=== PATIENT | female | born 1960 | race Caucasian/White ===

== ENCOUNTER 2017-08-24 12:04 | Day surgery (SDC) | payer OTHER ==
[2017-08-17 11:16] LABS: Absolute Lymphocytes (CBC) 3.6 K/uL (0.7-4.9); Absolute Monocytes 0.7 K/uL (0.1-1.3); Absolute Neutrophil 5.1 K/uL (1.8-8.0); Basophils % 0.5 % (0-1.3); Eosinophils % 1.7 % (0-4.4); Hematocrit 43.4 % (36.0-45.0); Lymphocytes % 37.3 % (15.3-44.8); MCH 30.1 pg (27.0-35.0); MCV 88.7 fL (80-100); MPV 10.9 fL (7.6-11.3); Monocytes % 7.6 % (3.3-12.3)
[2017-08-17 11:22] LABS: Urine Appearance CLEAR; Urine Bilirubin NEGATIVE (NEG); Urine Blood NEGATIVE (NEG); Urine Color YELLOW; Urine Glucose NEGATIVE (NEG); Urine Protein NEGATIVE (NEG); Urine Urobilinogen 0.2 mg/dL (0.2-1.0)
[2017-08-17 11:31] LABS: Urine Microscopic Reflex ORDER UMIC
--- NOTE | 2017-08-17 11:51 | RAD REPORT ---
EXAM DESCRIPTION: RAD - Chest Pa And Lat (2 Views) - 08/17/2017 10:57 am CLINICAL HISTORY: Preop chest, pending carpal tunnel surgery COMPARISON: February 2008 TECHNIQUE: PA and lateral views of the chest were obtained. FINDINGS: The lungs are normal volume. Patient has a prominent interstitial fibrotic lung pattern. B ullous emphysema changes are present in each upper lung field. No single large cavitary lesion identi fiable. Lung parenchymal pattern is not substantially different over the long interval since 2007. A focal mass, consolidation or failure finding not seen. Trachea is midline. Heart size is normal and central vasculature is within normal limits. No pleural effusion or pneumothorax seen. No acute priscilla ny finding noted. No aortic abnormality. IMPRESSION: Prominent emphysema changes are present but not substantially different over the long in terval since 2007. No superimposed failure, infiltrate or mass.
[2017-08-17 12:28] LABS: Urine Bacteria >50 /HPF (<20); Urine RBC <5 /HPF (NONE SEEN)
[2017-08-17 12:29] LABS: Urine Culture Reflex Order REFLEXED
--- NOTE | 2017-08-17 16:27 | EKG ---
Test Date: 2017-08-17 Test Time: 10:41:21 Cleaning Technician: NEERAJ MEASUREMENT RESULTS: Intervals: Rate: 71 NH: 152 QRSD: 84 QT: 376 QTc: 408 War: P: 68 NH: 152 QRS: 56 T: 57 INTERPRETIVE STATEMENTS: Normal sinus rhythm with sinus arrhythmia Normal ECG No previous ECG available for comparison Electronically Signed On 08-17-17 16:24:41 CDT by Vazquez Ford
--- OUTSIDE RECORDS SUMMARY | 2017-08-24 12:08 | XMS REPORT | Clinical Summary ---
:1960 Author Organization [facility] Address [address] [place] [address] Care Team Providers Name Role Phone Chai Núñez MD Primary Care Provider Allergies Active Allergy Reactions Severity Noted Date Comments Latex, Natural Rubber Rash Low 07/28/2016 Doesn't wear underwear. Current Medications Prescription Sig. Disp. Refills Start End Date Status Date atenolol (TENORMIN) 25 Take 25 mg by Active MG tablet mouth every 6 morning. atorvastatin (LIPITOR) Take 40 mg by Active 40 MG tablet mouth 6 nightly. OMEPRAZOLE (PRILOSEC Take 20 mg by Active ORAL) mouth 2 (two) times a day. Unknown dosage LACTOBACILLUS Take 1 tablet Active ACIDOPHILUS (PROBIOTIC by mouth ORAL) daily. gabapentin (NEURONTIN) Take 400 mg Active 400 mg capsule by mouth 2 (two) times a day. montelukast (SINGULAIR) Take 10 mg by Active 10 mg tablet mouth as needed. albuterol (PROAIR Inhale 2 Active HFA,PROVENTIL puffs every 4 HFA,VENTOLIN HFA) 90 (four) hours mcg/actuation inhaler as needed for wheezing. oxybutynin (DITROPAN) 5 Take 5 mg by Active MG tablet mouth 2 (two) times a day. loperamide (IMODIUM) 2 Take 1 28 capsule 0 Active mg capsule capsule (2 mg 7 total) by mouth 4 (four) times a day as needed for diarrhea for up to 28 doses. lisinopril Take 1 tablet 30 tablet 0 Active (PRINIVIL,ZESTRIL) 20 (20 mg total) 7 mg tablet by mouth daily for 30 days. hydroCHLOROthiazide TK ONE C PO 2 Active (MICROZIDE) 12.5 mg QD 7 capsule levothyroxine Take 100 mcg Active (SYNTHROID, LEVOXYL) by mouth 100 mcg tablet daily. citalopram (CeleXA) 20 Take 20 mg by Active MG tablet mouth daily. insulin GLARGINE Inject 38 Active (LANTUS) 100 unit/mL Units under injection (vial) the skin nightly. oxyCODone (OxyCONTIN) Take 20 mg by Active 20 MG 12 hr tablet mouth every 12 (twelve) hours. riFAXimin (XIFAXAN) 550 Take 1 tablet 60 tablet 11 07/28/19 Active mg tabletIndications: (550 mg 8 19 Hepatic encephalopathy total) by mouth 2 (two) times a day. PARoxetine (PAXIL) 20 Take 60 mg by 07/28/19 Discontinued MG tablet mouth daily. 18 Takes 3 tablets (60 mg) daily HYDROcodone-acetaminoph Take 1 tablet 07/28/19 Discontinued en (NORCO) 10-325 mg by mouth 18 per tablet every 6 (six) hours as needed for moderate pain. metoclopramide (REGLAN) Take 5 mg by 10/07/19 Discontinued 5 MG tablet mouth 2 (two) 17 times a day. lisinopril Take 1 tablet 30 tablet 0 09/02/19 Discontinued (PRINIVIL,ZESTRIL) 10 (10 mg total) 7 17 mg tablet by mouth daily for 30 days. insulin DETEMIR Inject 10 3 mL 0 09/12/19 (LEVEMIR FLEXPEN) 100 Units under 7 17 unit/mL (3 mL) insulin the skin pen daily before breakfast for 30 days. levothyroxine Take 1 tablet 2 10/07/19 Discontinued (SYNTHROID, LEVOXYL) by mouth 7 17 137 mcg tablet every morning. baclofen (LIORESAL) 10 Take 10 mg by 10/07/19 Discontinued MG tablet mouth 4 17 (four) times a day. acetaminophen (TYLENOL) Take 2 10/02/19 325 MG tablet tablets (650 7 17 mg total) by mouth every 6 (six) hours as needed for mild pain or fever for up to 30 days. fluconazole (DIFLUCAN) Take 1 tablet 7 tablet 0 09/09/19 200 MG tablet (200 mg 7 17 total) by mouth daily for 7 days. doxycycline Take 1 14 capsule 0 09/09/19 (VIBRAMYCIN) 100 MG capsule (100 7 17 capsule mg total) by mouth 2 (two) times a day for 7 days. nicotine (NICODERM CQ) Place 1 patch 14 patch 0 09/16/19 21 mg/24 hr on the skin 7 17 daily for 14 days. tiZANidine (ZANAFLEX) 4 TK 1 T PO UP 1 10/07/19 Discontinued MG tablet TO TID Q 8 H 7 17 insulin regular Infuse 8 07/28/19 Discontinued (HumuLIN-R, NovoLIN-R) Units into a 18 100 unit/mL injection venous catheter 2 (two) times a day. Am and with supper insulin regular Infuse 13 07/28/19 Discontinued (HumuLIN-R, NovoLIN-R) Units into a 18 100 unit/mL injection venous catheter daily before lunch. insulin detemir Inject 38 07/28/19 Discontinued (LEVEMIR) 100 unit/mL Units under 18 injection the skin nightly. acetaminophen-codeine Take 2 60 tablet 1 11/09/19 (TYLENOL WITH CODEINE tablets by 7 17 #3) 300-30 mg per mouth every 4 tablet (four) hours as needed for moderate pain for up to 30 days. riFAXimin (XIFAXAN) 550 Take 550 mg 07/28/19 Discontinued mg tablet by mouth 2 18 (two) times a day. Active Problems Problem Noted Date Obesity 07/27/2017 Cirrhosis of liver without ascites 04/20/2017 HE (hepatic encephalopathy) 04/20/2017 Weight loss 04/20/2017 Type 2 diabetes mellitus with complication 04/20/2017 Altered mental status, unspecified 08/28/2016 Confusion 08/11/2016 S/P BKA (below knee amputation) unilateral 07/13/2016 Encounters Date Type Specialty Care Team Description 08/03/2017 Telephone Gastroenterology Ty Key MD 07/27/2017 Office Visit Gastroenterology Randallch, Hepatic encephalopathy ( Primary Dx); Madai Mckeeyn, Cirrhosis of liver without ascites, unspecified hepatic cirrhosis type; ACNP HE (hepatic encephalopathy); Type 2 diabetes mellitus with complication, unspecified exterminator termite insulin use status; Class 1 obesity with serious comorbidity and body mass index (BMI) of 34.0 to 34.9 in adult, unspecified obesity type 07/27/2017 Hospital Encounter Radiology Ty Key Cirrhosis of liver without ascites, unspecified hepatic cirrhosis type; MD Isadora HE (hepatic encephalopathy); Type 2 diabetes mellitus with complication, unspecified exterminator termite insulin use status; Weight loss 06/30/2017 Telephone Hepatology Dayanna Benitez LVN 05/26/2017 Documentation Gastroenterology Sandra Whatley MA 05/25/2017 Telephone Gastroenterology Ty Key MD 05/11/2017 Telephone Gastroenterology Arron Hall MD 04/20/2017 Office Visit Gastroenterology Ty Key Cirrhosis of liver without ascites, unspecified hepatic cirrhosis type (Primary Dx); MD Isadora HE (hepatic encephalopathy); Type 2 diabetes mellitus with complication, unspecified senior living insulin use status; Weight loss; Altered mental status, unspecified altered mental status type 03/12/2017 Telephone Gastroenterology Nicole Win MA 03/10/2017 Telephone Gastroenterology Nicole Win MA 10/09/2016 Orders Only Orthopedic Surgery Abigail Cornell MA 10/09/2016 Procedure Pass General Surgery 10/07/2016 Office Visit Orthopedic Surgery Samira Benavides (below jordyn Gee MD amputation) unilateral, right (Primary Dx) 10/07/2016 Office Visit Pre-Admission Testing Cindy Benavides MD 10/02/2016 Orders Only Orthopedic Surgery Abigail Cornell S/Bonnie BKUziel (below knee SHAAN amputation) unilateral, right (Primary Dx) 09/30/2016 Office Visit Orthopedic Surgery Samira Benavides (below knee Sim Gee MD amputation) unilateral, right (Primary Dx) 09/29/2016 Hospital Encounter Wound Care Mahendra Deng MD 09/21/2016 Office Visit Orthopedic Surgery Cosculluela, S/P BKA (below knee Sim Gee MD amputation) unilateral, right (Primary Dx) 09/17/2016 Office Visit Orthopedic Surgery Makayla, S/P BKA (below knee Sim Gee MD amputation) unilateral, right (Primary Dx) 08/28/2016 Anesthesia Event Orthopedic Surgery Evon Olvera MD 08/28/2016 Procedure Pass Orthopedic Surgery 08/28/2016 Surgery Orthopedic Surgery KAROLYN Benavides BKA Pedro E., MD 08/27/2016 Hospital Encounter Orthopedic Surgery Alanis, Altered mental status, unspecified (Primary Dx); - Medardo Sepsis, due to unspecified organism; 09/01/2016 DO Pastor BKUziel stump complication; Gadiraju, 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, hypnotic, or anxiolytic drug; DO Kerrie Fever and chills after 08/23/2016 Immunizations Name Dates Previously Given Next Due Pneumococcal Conjugate 13-Valent 08/30/2016 Family History Medical History Relation Name Comments Cancer Mother Relation Name Status Comments Father Mother LYMPHOMA Social History Tobacco Use Types Packs/Day Years Used Date Current Every Day Smoker Cigarettes 1 40 Started: 08/11/1974 Smokeless Tobacco: Never Used Tobacco Cessation: Ready to Quit: No; Counseling Given: Yes Alcohol Use Drinks/Week oz/Week Comments No Sex Assigned at Date Recorded Not on file Last Filed Vital Signs Vital Sign Reading Time Taken Blood Pressure 138/73 07/27/2017 11:21 AM CREDIT CHARGE AUTHORIZER Pulse 65 07/27/2017 11:21 AM CREDIT CHARGE AUTHORIZER Temperature 36.6 C (97.8 F) 07/27/2017 11:21 AM CREDIT CHARGE AUTHORIZER Respiratory Rate 18 07/27/2017 11:21 AM CREDIT CHARGE AUTHORIZER Oxygen Saturation 95% 07/27/2017 11:21 AM CREDIT CHARGE AUTHORIZER Inhaled Oxygen Concentration - - Weight 79.8 kg (176 lb) 07/27/2017 11:21 AM CREDIT CHARGE AUTHORIZER Height 152.4 cm (5') 07/27/2017 11:21 AM CREDIT CHARGE AUTHORIZER Body Mass Index 34.37 07/27/2017 11:21 AM CREDIT CHARGE AUTHORIZER Plan of Treatment Date Type Specialty Care Team Description 09/22/2017 Surgery Gastroenterology Shahid, ESOPHAGOGASTRODUODENOSCOPY Ty Muir MD (EGD) [address] [facility] [address] [place] [address] 09/22/2017 Procedure Pass Gastroenterology 09/22/2017 [facility] Shahid, Encounter Ty Muir MD [address] [facility] [address] [place], [place] [id number] 11/05/2017 Office Visit Gastroenterology Ty Key MD [address] [facility] [address] [place] [address] Health Maintenance Due Date Last Done Comments FOOT EXAM 1969 OPHTHALMOLOGY EXAM 1969 URINE MICROALBUMIN 1969 PAP SMEAR 01/11/1980 COLONOSCOPY 2009 MAMMOGRAM 2009 INFLUENZA VACCINE 12/22/2017 Procedures Procedure Name Priority Date/Time Associated Diagnosis Comments LA AN ELECTIVE Routine 08/28/2016 3:08 PM ENDOTRACHEAL AIRWAY CDT Procedure Note - Tonya Meredith CRNA - 08/28/2016 3:07 PM CDT Airway Performed by: TONYA MEREDITH Authorized by: ZULY BOWENS Location: OR Urgency: Elective Difficult Airway: No Resident/RELAY RECORD CLERK: TONYA MEREDITH Performed by: resident/RELAY RECORD CLERK Preoxygenated with 100% O2: Yes C-spine Precautions Maintained Throughout: No Mask Ventilation: Assisted mask (OPA) Final Airway Type: Endotracheal airway Final Endotracheal Airway: ETT Cuffed: Yes Technique Used: Direct laryngoscopy Insertion Site: Oral Blade Type: Logan Laryngoscope Blade/Videolaryngoscope Blade Size: 2 ETT Size (mm): 7.0 Cuff at minimum occlusion pressure: Yes Measured from: Gums ETT to Gums (cm): 21 Placement Verified by: CO2 detection, direct visualization and equal breath sounds Laryngoscopic view: Grade IIa - partial view of glottis Rapid Sequence Induction (RSI): No Modified RSI: No Number of Attempts at Approach: 1 EZ/AT REVISION, BKA 08/28/2016 2:40 PM CDT SEPTIC BKA after 08/23/[address] Abdomen W Wo Contrast (07/27/2017 10:53 AM) Specimen Performing Laboratory [facility] [address] [place] [address] Narrative EXAMINATION:CT ABDOMEN W WO CONTRAST CLINICAL HISTORY:K74.60 Unspecified cirrhosis of liver, K72.90 Hepatic failureunspecified without coma, cirrhosis TECHNIQUE: Multiple axial images of the abdomen were obtained before and after intravenous administration of contrast. Sagittal and coronal computerized reformatted images were also obtained.. All CT images were acquired using low-dose technique with automated exposure control. COMPARISON: None. FINDINGS: Abdomen: 1.Cirrhotic appearing liver with hepatomegaly. 6 mm cyst in segment 5. No suspicious hepatic masses are identified. Spleen is within normal limits measuring 10 cm in craniocaudal dimension. 2.The portal vein, SMV, and splenic vein are patent. Abdominal aorta is of normal caliber. There is no retroperitoneal lymphadenopathy. 3.Atherosclerotic changes seen involving the abdominal aorta. 4.Small hiatal hernia. 5.Cholecystectomy. There is no intrahepatic or extra hepatic biliary distention. 6.Mild cortical scarring involving left kidney. Otherwise, the kidneys are unremarkable. No hydronephrosis. 7.No ascites. Osseous structures are intact. IMPRESSION: 1.Hepatomegaly with cirrhotic appearing liver. No suspicious hepatic masses are identified. 2.4 mm nonspecific right lower lobe pulmonary nodule. Surveillance may be of benefit. [facility]-[id number] Procedure Note [facility], Radiology Results Incoming - 07/27/2017 11:38 AM CREDIT CHARGE AUTHORIZER EXAMINATION: CT ABDOMEN W WO CONTRAST CLINICAL HISTORY: K74.60 Unspecified cirrhosis of liver, K72.90 Hepatic failure unspecified without coma, cirrhosis TECHNIQUE: Multiple axial images of the abdomen were obtained before and after intravenous administration of contrast. Sagittal and coronal computerized reformatted images were also obtained.. All CT images were acquired using low-dose technique with automated exposure control. COMPARISON: None. FINDINGS: Abdomen: 1. Cirrhotic appearing liver with hepatomegaly. 6 mm cyst in segment 5. No suspicious hepatic masses are identified. Spleen is within normal limits measuring 10 cm in craniocaudal dimension. 2. The portal vein, SMV, and splenic vein are patent. Abdominal aorta is of normal caliber. There is no retroperitoneal lymphadenopathy. 3. Atherosclerotic changes seen involving the abdominal aorta. 4. Small hiatal hernia. 5. Cholecystectomy. There is no intrahepatic or extra hepatic biliary distention. 6. Mild cortical scarring involving left kidney. Otherwise, the kidneys are unremarkable. No hydronephrosis. 7. No ascites. Osseous structures are intact. IMPRESSION: 1. Hepatomegaly with cirrhotic appearing liver. No suspicious hepatic masses are identified. 2. 4 mm nonspecific right lower lobe pulmonary nodule. Surveillance may be of benefit. [facility]-[id number] Estimated GFR (07/27/2017 9:08 AM) Component Value Ref Range GFR Non Af Amer 51 (A) mL/min/1.73 m2 GFR Af Amer 62 mL/min/1.73 m2 Comment: Chronic kidney disease: <60 mL/min/1.73m2 Kidney failure: <15 mL/min/1.73m2 The estimated GFR is calculated from the IDMS-traceable Modification of Diet in Renal Disease Equation. The accuracy of the calculation is poor when the creatinine is normal. Calculated values >90 mL/min/1.73m2 are not reported. This equation has not been validated in children (<18 years), women, the elderly (>70 years), or ethnic groups other than Caucasians and Americans. Specimen Performing Laboratory Blood [facility] DEPARTMENT OF PATHOLOGY AND GENOMIC MEDICINE [address] [place] [address] POC creatinine (07/27/2017 9:08 AM) Component Value Ref Range POC creatinine 1.1 (H)Comment: Testing performed on the ISTAT 0.5 - 0.9 mg/dl instrument by STEPAN Jeff [id number] Specimen Performing Laboratory Blood [facility] DEPARTMENT OF PATHOLOGY AND GENOMIC MEDICINE [address] [place] [address] Mitochondrial Ab Titer (04/20/2017 2:28 PM) Component Value Ref Range Mitochondrial Ab titer TNP titer Comment: * TEST NOT PERFORMED. SPECIMEN* * [facility] * [facility]'S RECOMMENDED STABILITY * * RANGE. PLEASE RESUBMIT. CHARGES * * HAVE BEEN CANCELLED.* Specimen Performing Laboratory [facility] Mitochondrial Ab Screen (04/20/2017 2:28 PM) Component Value Ref Range Mitochondrial Ab TNP Comment: * TEST NOT PERFORMED. SPECIMEN* * [facility], [place]* * INSTITUTE'S RECOMMENDED STABILITY * * RANGE. PLEASE RESUBMIT. CHARGES * * HAVE BEEN CANCELLED.* Specimen Performing Laboratory [facility] MCKAYLA SCREEN W IFA W REFLEX TO TITER (04/20/2017 2:28 PM) Component Value Ref Range MCKAYLA screen TNP Comment: * TEST NOT PERFORMED. SPECIMEN* * [facility], [place]* * INSTITUTE'S RECOMMENDED STABILITY * * RANGE. PLEASE RESUBMIT. CHARGES * * HAVE BEEN CANCELLED.* Specimen Performing Laboratory Blood [facility] TEST IN [facility] - NO TEST FOR CONTAINER (04/20/2017 2:28 PM) Component Value Ref Range TEST IN [facility] - NO TEST FOR CONTAINER Comment: NO TEST(S) ARE INDICATED ON THE REQUISITION FOR THE FOLLOWING SPECIMEN(S). SPECIMEN(S) RECEIVED: PLASMA Comment Comment: To prevent further delays in testing, please complete information above and fax to [phone] to resolve this order. Specimen Performing Laboratory [facility] Total iron binding capacity (04/20/2017 2:28 PM) Component Value Ref Range Iron level 45 45 - 160 mcg/dL Iron binding capacity 393 250 - 450 mcg/dL (calc) Iron saturation 11 11 - 50 % (calc) Specimen Performing Laboratory [facility] F-actin (smooth muscle) antibody, IgG (04/20/2017 2:28 PM) Component Value Ref Range F-actin (smooth muscle) Ab, IgG TNP U Comment: * TEST NOT PERFORMED. SPECIMEN* * [facility], [place]* * INSTITUTE'S RECOMMENDED STABILITY * * RANGE. PLEASE RESUBMIT. CHARGES * * HAVE BEEN CANCELLED.* Specimen Performing Laboratory [facility] Zinc level, serum (04/20/2017 2:28 PM) Component Value Ref Range Zinc TNP mcg/dL Comment: * Test not performed.* * No suitable specimen received. * Specimen Performing Laboratory [facility] Prothrombin time with INR (04/20/2017 2:28 PM)Only the most recent of2 resultswithin the time period is included. Component Value Ref Range INR 1.0 Comment: Reference Range 0.9-1.1 Moderate-intensity Warfarin Therapy 2.0-3.0 Higher-intensity Warfarin Therapy 3.0-4.0 Prothrombin time 10.6 9.0 - 11.5 sec Comment: For more information on this test, go to: http://education.remocean/faq/MWD703 Specimen Performing Laboratory [facility] Immunoglobulin G, A, M (04/20/2017 2:28 PM) Component Value Ref Range IgA 331 81 - 463 mg/dL IgG 1,651 (H) 694 - 1,618 mg/dL IgM 108 48 - 271 mg/dL Specimen Performing Laboratory [facility] GGT (04/20/2017 2:28 PM) Component Value Ref Range GGT 61 3 - 70 U/L Specimen Performing Laboratory [facility] Ferritin level (04/20/2017 2:28 PM) Component Value Ref Range Ferritin level 26 10 - 232 ng/mL Specimen Performing Laboratory [facility] Comprehensive metabolic panel (04/20/2017 2:28 PM)Only the most recent of2 resultswithin the time period is included. Component Value Ref Range Glucose 112 (H) 65 - 99 mg/dL Comment: Fasting reference interval For someone without known diabetes, a glucose value between 100 and 125 mg/dL is consistent with prediabetes and should be confirmed with a follow-up test. BUN, whole blood 23 7 - 25 mg/dL Creatinine 0.97 0.50 - 1.05 mg/dL Comment: For patients >49 years of age, the reference limit for Creatinine is approximately 13% higher for people identified as -Stateless. EGFR Non-Afr. Stateless 64 > OR=60 mL/min/1.73m2 EGFR 75 > OR=60 mL/min/1.73m2 BUN/creatinine ratio NOT APPLICABLE 6 - 22 (calc) Sodium 139 135 - 146 mmol/L Potassium 4.2 3.5 - 5.3 mmol/L Chloride 104 98 - 110 mmol/L CO2 28 20 - 31 mmol/L Calcium 9.3 8.6 - 10.4 mg/dL Protein 7.5 6.1 - 8.1 g/dL Albumin, S 3.8 3.6 - 5.1 g/dL Globulin, total 3.7 1.9 - 3.7 g/dL (calc) Albumin/globulin ratio 1.0 1.0 - 2.5 (calc) Total bilirubin 0.2 0.2 - 1.2 mg/dL Alkaline phosphatase 175 (H) 33 - 130 U/L AST 16 10 - 35 U/L ALT 5 (L) 6 - 29 U/L Specimen Performing Laboratory [facility] POC glucose (09/01/2016 11:15 AM)Only the most recent of16 resultswithin the time period is included. Component Value Ref Range POC glucose 197 (H) 65 - 99 mg/dL Comment: Meter ID: [id number] Senior Office Support Assistant Sosa: Pablo Garay Specimen Performing Laboratory [facility] DEPARTMENT OF PATHOLOGY AND GENOMIC MEDICINE [address] [place] [address] PV duplex venous upper extremity bilat (08/31/2016 4:18 PM) Specimen Performing Laboratory [facility] [address] [place] [address] Narrative Vascular Ultrasound Laboratory Upper Extremity Venous Report [address] [place] [address] Pat.Name:Kim FERREIRA.ID:[id number] St.Date: 08/31/2016 Refer.:KERRIE MARTINEZ DO Exam Time: 3:25:00 PMStudy Type:UE Venous DOBAge:1960,56Y Sex: FEMALE Sonogrphr: Otto Brown, RVS, James Abbasi, RDMS, RVT Pat. Stat.:Inpatient TapeVol: FE, Echo Event ID:[id number] Order ID:[id number] Reason for Study:Bilateral arm edema; Race:C SUMMARY: DUPLEX SCAN OBSERVATIONS Right Left IJNormal Normal SubclavianNormal Normal AxillaryNormal Normal BrachialNormal Normal BasilicPartialNormal CephalicNormal Normal RIGHT:The basilic vein is partiallycompressible, and dilated with echogenic material noted within the lumen of the visualized vein. Colorflow and Doppler signals are present. LEFT: There is normal compressibility and no evidence of echogenic material noted within the lumen of the visualized veins. Colorflow and Doppler signals are normal. PRELIMINARY FINDINGS 1.Partial venous thrombosis of the right basilic vein. Findings reported to and read back by Galina Gatica on 08/31/2016 @ 4:15. PHYSICIAN INTERPRETATION Venous examination of the both upper extremities and neck demonstrated a partial venous thrombosis of the right basilic vein. Signed 08/31/2016 05:30 PM Christian Gonzales MD, RPVI Procedure Note Interface, Radiology Results In - 08/31/2016 5:30 PM CDT Vascular Ultrasound Laboratory Upper Extremity Venous Report [id number] [place] [address] Pat.Name: MARY FERREIRA Pat.ID: [id number] .Date: 08/31/2016 Refer.MD: KERRIE MARTINEZ DO Exam Time: 3:25:00 PM Study Type:UE Venous Age: 8 1960,56Y Sex: FEMALE Sonogrphr: SERGE Kulkarni Steven To, RDMS, RVT Pat. Stat.:Inpatient Tape Vol: FE, Echo Event ID:[id number] Order ID: [id number] Reason for Study:Bilateral arm edema; Race: C SUMMARY: DUPLEX SCAN OBSERVATIONS Right Left IJ Normal Normal Subclavian Normal Normal Axillary Normal Normal Brachial Normal Normal Basilic Partial Normal Cephalic Normal Normal RIGHT: The basilic vein is partiallycompressible, and dilated with echogenic material noted within the lumen of the visualized vein. Colorflow and Doppler signals are present. LEFT: There is normal compressibility and no evidence of echogenic material noted within the lumen of the visualized veins. Colorflow and Doppler signals are normal. PRELIMINARY FINDINGS 1. Partial venous thrombosis of the right basilic vein. Findings reported to and read back by Galina Gatica on 08/31/2016 @ 4:15. PHYSICIAN INTERPRETATION Venous examination of the both upper extremities and neck demonstrated a partial venous thrombosis of the right basilic vein. Signed 08/31/2016 05:30 PM Christian Gonzales MD, RPVI Estimated GFR (08/31/2016 3:06 AM)Only the most recent of4 resultswithin the time period is included. Component Value Ref Range GFR Non Af Amer 86 mL/min/1.73 m2 GFR Af Amer >90 mL/min/1.73 m2 Comment: Chronic kidney disease: <60 mL/min/1.73m2 Kidney failure: <15 mL/min/1.73m2 The estimated GFR is calculated from the IDMS-traceable Modification of Diet in Renal Disease Equation. The accuracy of the calculation is poor when the creatinine is normal. Calculated values >90 mL/min/1.73m2 are not reported. This equation has not been validated in children (<18 years), women, the elderly (>70 years), or ethnic groups other than Caucasians and Americans. Specimen Performing Laboratory Plasma specimen [facility] DEPARTMENT OF PATHOLOGY AND GENOMIC MEDICINE [address] [place] [address] CBC with platelet and differential (08/31/2016 3:06 AM)Only the most recent of4 resultswithin the time period is included. Component Value Ref Range WBC 8.02 4.50 - 11.00 k/uL RBC 3.57 (L) 4.20 - 5.50 m/uL HGB 11.3 (L) 12.0 - 16.0 g/dL HCT 34.2 (L) 37.0 - 47.0 % MCV 95.8 82.0 - 100.0 fL MCH 31.7 27.0 - 34.0 pg MCHC 33.0 31.0 - 37.0 g/dL RDW - SD 43.9 37.0 - 55.0 fL MPV 11.8 8.8 - 13.2 fL Platelet count 188 150 - 400 k/uL Nucleated RBC 0.00 /100 WBC Neutrophils 55.6 39.0 - 69.0 % Lymphocytes 30.9 25.0 - 45.0 % Monocytes 9.7 0.0 - 10.0 % Eosinophils 1.9 0.0 - 5.0 % Basophils 1.5 (H) 0.0 - 1.0 % Immature granulocytes 0.4Comment: "Immature granulocytes" 0.0 - 1.0 % (promyelocytes, myelocytes, metamyelocytes) Specimen Performing Laboratory Blood [facility] DEPARTMENT OF PATHOLOGY AND GENOMIC MEDICINE [address] [place] [address] Phosphorus level (08/31/2016 3:06 AM)Only the most recent of3 resultswithin the time period is included. Component Value Ref Range Phosphorus 3.7 2.4 - 4.5 mg/dL Specimen Performing Laboratory Plasma specimen [facility] DEPARTMENT OF PATHOLOGY AND [address] [address] Magnesium level (08/31/2016 3:06 AM)Only the most recent of3 resultswithin the time period is included. Component Value Ref Range Magnesium 1.7 1.6 - 2.6 mg/dL Specimen Performing Laboratory Plasma specimen [facility] DEPARTMENT OF PATHOLOGY AND [address] [address] Basic metabolic panel (08/31/2016 3:06 AM)Only the most recent of3 resultswithin the time period is included. Component Value Ref Range Sodium 143 135 - 148 mEq/L Potassium 3.7 3.5 - 5.0 mEq/L Chloride 108 98 - 112 mEq/L CO2 23 (L) 24 - 31 mEq/L Anion gap 12 7 - 15 mEq/L Comment: Starting from August , anion gap calculation no longer incorporates potassium. Please note the change. BUN 4 (L) 6 - 20 mg/dL Creatinine 0.7 0.5 - 0.9 mg/dL Glucose 141 (H) 65 - 99 mg/dL Calcium 8.6 8.3 - 10.2 mg/dL Specimen Performing Laboratory Plasma specimen [facility] AND [facility] [address] [place] [id number] Hemoglobin A1c (08/30/2016 12:11 AM) Component Value Ref Range Hemoglobin A1C 5.6 4.0 - 5.6 % Comment: HbA1c cutoffs for diagnosing diabetes: 4.0% - 5.6%=normal 5.7% - 6.4%=increased risk for diabetes (prediabetes) >=6.5%=diabetes Goals for glycemic control (ADA 2016) < 7.0%Target for non adults with diabetes. More or less stringent targets may be appropriate for individual patients. <7.5% Target for Children and adolescents with type 1 diabetes. Specimen Performing Laboratory Blood [facility]PARTMENT OF PATHOLOGY AND [address] [address] Vancomycin level, trough (08/30/2016 12:11 AM) Component Value Ref Range Vancomycin, trough 21.3 (HH) 10.0 - 20.0 ug/mL Comment: Therapeutic Ranges: Peak 30.0 - 40.0 ug/mL Xqdtfg38.0 - 20.0 ug/mL Specimen Performing Laboratory Serum [facility] [address] [place] [id number] Hepatic function panel (08/29/2016 4:00 AM) Component Value Ref Range Albumin 2.4 (L) 3.5 - 5.0 g/dL Total bilirubin 0.5 0.0 - 1.2 mg/dL Bilirubin direct <0.2 0.0 - 0.3 mg/dL Alkaline phosphatase 130 (H) 35 - 104 U/L Protein 6.6 6.3 - 8.3 g/dL Comment: [place] 4.6-7.0 g/dL 1 week 4.4-7.6 g/dL 7 months-1year5.1-7.3 g/dL 1-2 years5.6-7.5 g/dL >3 years6.0-8.0 g/dL 18-150 6.3-8.3 g/dL ALT 9 5 - 50 U/L AST 38 (H) 10 - 35 U/L Specimen Performing Laboratory Plasma specimen [facility] [address] [place] [id number] XR Tibia Fibula 2 Vw Right (08/28/2016 5:19 AM) Specimen Performing Laboratory [facility] [address] [place] [address] Narrative Examination:XR TIBIA FIBULA 2 VW RIGHT Clinical History: BONE PAINLEG Comparison: None. Findings: 2 views of the right tibia and fibula are obtained. Below the knee amputation is noted. No acute fracture or dislocation is seen otherwise. No definite cortical bone loss is seen. Patient positioning limits the study. IMPRESSION: 1. Right below the knee amputation. No definite radiographic evidence for osteomyelitis is seen. [facility]-[id number] Procedure Note Interface, Radiology Results Incoming - 08/28/2016 5:27 AM CDT Examination: XR TIBIA FIBULA 2 VW RIGHT Clinical History: BONE PAIN LEG Comparison: None. Findings: 2 views of the right tibia and fibula are obtained. Below the knee amputation is noted. No acute fracture or dislocation is seen otherwise. No definite cortical bone loss is seen. Patient positioning limits the study. IMPRESSION: 1. Right below the knee amputation. No definite radiographic evidence for osteomyelitis is seen. [facility]-[id number] XR Chest 1 Vw Portable (08/28/2016 5:18 AM) Specimen [facility] [address] [place] [address] Narrative Examination:XR CHEST 1 VW PORTABLE Clinical History:Fever Comparison: None. Technique: Single frontal view of the chest is obtained. Findings: Cardiomegaly with pulmonary vascular congestion are noted. No pleural effusion is seen. No pneumothorax is seen. Impression: Cardiomegaly with pulmonary vascular congestion. [facility]-[id number] Procedure Note Interface, Radiology Results Incoming - 08/28/2016 5:28 AM CDT Examination: XR CHEST 1 VW PORTABLE Clinical History: Fever Comparison: None. Technique: Single frontal view of the chest is obtained. Findings: Cardiomegaly with pulmonary vascular congestion are noted. No pleural effusion is seen. No pneumothorax is seen. Impression: Cardiomegaly with pulmonary vascular congestion. [id number] Partial thromboplastin time, activated (08/28/2016 3:07 AM) Component Value Ref Range PTT 34.9 23.0 - 36.0 sec Comment: PTT therapeutic range for unfractionated heparin is 61.0-112.0 seconds which corresponds to Anti-Xa 0.3-0.7 U/ml. Specimen Performing Laboratory Blood [facility] [address] [place] [address] Type and screen (08/28/2016 3:07 AM) Component Value Ref Range ABO grouping A Rh type POS Antibody screen (gel) NEG Specimen Performing Laboratory [facility] [address] [place] [address] Lactic acid level (08/28/2016 3:07 AM)Only the most recent of2 resultswithin the time period is included. Component Value Ref Range Lactic acid 1.0 0.5 - 2.2 mmol/L Specimen Performing Laboratory Plasma specimen [facility] [address] [place] [address] ECG ED Preliminary Interpretation - NOT AN ORDER (08/28/2016 2:14 AM) Bobby Alanis DO 08/28/20162:14 AM ECG ED Preliminary Interpretation - Not an Order Performed by: MEDARDO ALANIS Authorized by: MEDARDO ALANIS ECG reviewed by ED Physician in the absence of a hand blocker: yes Previous ECG: Previous ECG:Unavailable Interpretation: Interpretation: abnormal Rate: ECG rate:106 ECG rate assessment: tachycardic Rhythm: Rhythm: sinus tachycardia QRS: QRS axis:Normal QRS intervals:Normal ST segments: ST segments:Normal T waves: T waves: normal Urinalysis screen and microscopy, with reflex to culture (08/28/2016 1:30 AM) Component Value Ref Range Specimen site Clean catch Color, UA Straw Appearance, UA Clear Specific gravity, UA 1.016 1.001 - 1.035 pH, UA 5.0 5.0 - 8.5 Protein, UA Negative Negative Glucose, UA Negative Negative Ketones, UA Negative Negative Bilirubin, UA Negative Negative Blood, UA Negative Negative Nitrite, UA Negative Negative Urobilinogen, UA <2.0 <2.0 Leukocyte esterase, UA Negative Negative Epithelial cells, UA 2 /HPF WBC, UA 2 0 - 4 /HPF RBC, UA 4 (H) 0 - 2 /HPF Bacteria, UA None seen None seen Yeast, UA None seen Yeast with pseudohyphae, UA None seen Hyaline casts, UA 1 /LPF Specimen Performing Laboratory Urine [facility] [address] [place] [address] Urine culture (08/28/2016 1:30 AM) Component Value Ref Range Urine culture SEE COMMENTComment: Bacteriuria screen negative. Specimen Performing Laboratory [facility] [address] [place] [id number] ECG 12 lead (08/28/2016 1:06 AM) Component Value Ref Range Ventricular rate 106 Atrial rate 106 LA interval 134 QRSD interval 82 QT interval 342 QTC interval 454 P axis 1 50 QRS axis 1 43 T wave axis 49 EKG impression Sinus tachycardia-Low voltage QRS-Borderline ECG-No previous ECGs available- Specimen Performing Laboratory [facility] [address] [place] [address] Respiratory pathogen panel (08/28/2016 12:50 AM) Component Value Ref Range Respiratory pathogen panel Negative for all pathogens tested: Negative for Adenovirus Negative for Coronavirus HKU1 Negative for Coronavirus NL63 Negative for Coronavirus 229E Negative for Coronavirus OC43 Negative for Human Metapneumovirus Negative for Rhinovirus/Enterovirus Negative for Influenza A Negative for Influenza A/H1 Negative for Influenza A/H3 Negative for Influenza A/H1-2009 Negative for Influenza B Negative for Parainfluenza Virus 1 Negative for Parainfluenza Virus 2 Negative for Parainfluenza Virus 3 Negative for Parainfluenza Virus 4 Negative for Respiratory Syncytial Virus Negative for Bordetella pertussis Negative for Chlamydophila pneumoniae Negative for Mycoplasma pneumoniae This real-time PCR assay detects the presence of nucleic acids (RNA or DNA) for the respiratory pathogens listed. A result of "Not-detected" does not exclude the possibility of the presence of one or more pathogens at concentrations less than the detectable limits of the assay. Comment: Specimen Information Specimen Source: Nares Specimen Site: Other Specimen Performing Laboratory Nares - Other [facility] [address] [place] [address] Blood culture, aerobic & anaerobic (08/28/2016 12:50 AM)Only the most recent of2 resultswithin the time period is included. Component Value Ref Range Blood culture isolate No growth after 5 days of incubation. Comment: Specimen Information Specimen Source: Blood Specimen Site: Hand, left Specimen Performing Laboratory Blood - Hand, left [facility] [address] [place] [address] Influenza antigen (08/28/2016 12:50 AM) Component Value Ref Range Influenza antigen Negative for Influenza A/B antigen. Comment: Specimen Information Specimen Source: Nares Specimen Site: Other Specimen Performing Laboratory Nares - Other [facility] [address] [place] [id number] after 08/23/2016 Insurance Payer Benefit Plan / Group Subscriber ID Type Phone Address [employer] MED[employer]ARE A[employer] MED[employer]ARE HMO/PPO [facility] xxxxxxxx O Work: [address] [phone] [place], [place] [phone] Home:
[2017-08-24] MEDS ORDERED: NA CHLORIDE 0.9% 1,000 ML ONE (12:42)
[2017-08-24] MEDS ORDERED: CEFAZOLIN/SWI 1gm 1 GM/10 ML SYR ONE (12:43)
[2017-08-24] MEDS ORDERED: PROPOFOL 200 MG/20 ML VIAL IV ONE (13:00)
[2017-08-24] MEDS ORDERED: FENTANYL CITR 100 MCG/2 ML ONE (13:01)
[2017-08-24] MEDS ORDERED: LIDOCAINE 2% MPF 5 ML VIAL ONE (13:01)
[2017-08-24] MEDS ORDERED: ETOMIDATE 20 MG/10 ML VIAL IV ONE (13:01)
[2017-08-24] MEDS ORDERED: MIDAZOLAM HCL 2 MG/2 ML INJ ONE (13:02)
[2017-08-24] MEDS ORDERED: ONDANSETRON 4 MG/2 ML VIAL ONE (13:33)
[2017-08-24] MEDS: MEPERIDINE HCL 50 MG/ML AMP ONE ×3 (13:40→13:54)
[2017-08-24] MEDS ORDERED: DIPHENHYDRAMINE 50 MG/ML VIAL ONE (14:29)
[2017-08-24 15:04] VITALS: BP 134/84; TEMP 98; O2SAT 95
[2017-08-24] MEDS ORDERED: MEPERIDINE HCL 25 MG/0.5 ML ONE (15:05)
--- NOTE | 2017-08-24 22:19 | OP ---
Surgeon: Asim Chakraborty MD Claims Coordinator: Emmanuel. Preoperative Diagnosis: Left carpal syndrome. Postoperative Diagnosis: Left carpal syndrome. Procedure Performed: Left carpal release, splint Anesthesia: General. Procedure In Detail: After satisfactory induction of general anesthesia, the left arm prepped with Betadine scrub, Betadine paint, dry sterile drapes applied in the usual manner. Arm was elevated, exsanguinated with an Esmarch, tourniquet was inflated to 250 mmHg. Hand placed on a [place] table. A felt- tip marking pen was used to outline the palmar incision. The scalpel was used to excise the skin. Dissection proceeded down. The transverse carpal ligament was divided. The antebrachial fascia was opened with tenotomy scissors. The superficial arch was identified. The motor branch of median nerve was identified and preserved. Blunt dissection was carried down to the floor. The floor was inspected. No masses. The tourniquet was released. Electrocautery was used for hemostasis and the median nerve was revascularized . Electrocautery for hemostasis. Wound closed with 4-0 Prolene in vertical mattress, half buried mattress simple sutures. Dressed with Xeroform, 2-inch Rom, Kerlix and a splint holding the wrist in 10 degrees of dorsiflexion. The patient tolerated the procedure well and returned to Recovery. GI Voice ID: [id number] Report ID: [id number] MICHA
== END 2017-08-24 15:00 | disposition home or self-care (01) ==
LOC: OR 12:04
PROVIDERS: ATTEND Specialist
PROC: 01N50ZZ Release Median Nerve, Open Approach (ICD-10-PCS; principal; 2017-08-24 13:30)
DX: G56.02 Carpal tunnel syndrome, left upper limb (principal); E11.9 Type 2 diabetes mellitus without complications; I10 Essential (primary) hypertension; J44.9 Chronic obstructive pulmonary disease, unspecified; G47.33 Obstructive sleep apnea (adult) (pediatric); K21.9 Gastro-esophageal reflux disease without esophagitis; F17.200 Nicotine dependence, unspecified, uncomplicated; Z91.040 Latex allergy status
CPT/HCPCS: 36415; 64721; 71046; 82962 ×2; 85025; 87077; 87086; 87088; 87186; 93005; J0690; J2175 ×2; J2250; J2405; J3010; J7030; 81003; 81015

== ENCOUNTER 2021-09-10 18:00 | Inpatient (IN) | payer OTHER ==
--- OUTSIDE RECORDS SUMMARY | 2021-09-10 18:06 | XMS REPORT | Continuity of Care Document ---
:1960 Author Organization [facility] t Address [address] [place] [address] Care Team Providers Name Role Phone Eliel Núñez MD Primary Care Physician LIN POWELL Attending Clinician Unavailable LIN POWELL Attending Clinician Unavailable SHAHID Attending Clinician Unavailable Maldonado PLUMMER Attending Clinician Unavailable Lin Powell MD Attending Clinician Payers Payer Name Policy Type Policy Number Effective Date Expiration Date Nikos adelina JOHN/[facility] [id number] 2021 MEDICARE GOLD PPO 00:00:00 CSNP Advance Directives Directive Decision Effective Termination Comments Source Date Date Healthcare Agents on N/A [facility] FileNameRelationshipHealthcare [facility] Agent Medical RelationshipCommunicationRaritan Bay Medical Centeron Branch [facility] [phone] (Mobile) Norma Mosley Alternate [facility] Care [phone] (Mobile) Problems Condition Condition Condition Status Onset Resolution Last Treating Co mments Source Name Details Category Date Date Treatment Clinician Date COVID COVID Disease Active 2020-05 Univers 1-30 ity of 00:00: Medical Branch AMS AMS Disease Active 2020-05 Univers (altered (altered 1-29 ity of mental mental 00:00: [place] status) status) 00 Medical Branch Altered Altered Disease Active Univers mental mental 9-16 ity of status status 00:00: Medical Branch Pancreatit Pancreatit Disease Active U nivers is is 9-12 ity of 00:00: Medical Branch Abnormal Abnormal Disease Active Metho di LFTs LFTs 6-28 st 00:00: Hospita 00 l Portal Portal Disease Active Methodi hypertensi hypertensi 1-15 st on on 00:00: Hospita 00 l Altered Altered Disease Active 2017-05 Univers mental mental 2-18 ity of state state 00:00: Medical Branch Obesity Obesity Disease Active 2017-05 Univers (BMI (BMI 2-18 ity of 30-39.9) 30-39.9) 00:00: Medical Branch Obesity Obesity Disease Active Methodi 3-06 st 00:00: Hospita 00 l Cirrhosis Cirrhosis Disease Active 2016-05 Met hodi of liver of liver 06-20 st without without 00:00: Hospita ascites ascites 00 l HE HE Disease Active 2016-05 Methodi (hepatic (hepatic 06-20 encephalop encephalop 00:00: Ho spita athy) athy) 00 l Weight Weight Disease Active 2016-05 Methodi loss loss 06-20 st 00:00: Hospita 00 l 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 06-20 st mellitus mellitus 00:00: Hospit a with with 00 l complicati complicati on on Morbid Morbid Disease Active 2016-05 Univers obesity obesity 0-10 [place] of with body [place] body [place] index mass index 00 Me dical of 50 or of 50 or Branch higher higher Confusion Confusion Disease Active 2016-05 Uni vers 0-09 ity of 00:00: [place] [facility] Urinary Urinary Disease Active Univers tract tract 8-04 ity of infection infection 00:[place] [facility] [place] Pain in Pain in Disease Active Univers right leg right leg 7-17 ity of 00:00: Medical Branch Chronic Chronic Disease Active Univers frontal frontal 7-17 ity of sinusitis sinusitis 00:00[place] Intermitte Intermitte Disease Active U nivers nt nt 7-17 ity of confusion confusion 00:00[place] [facility] [place] Recurrent Recurrent Disease Active Uni vers UTI UTI 7-17 ity of (urinary (urinary 00:00: [place] tract tract 00 Medical infection) infection) Br anch Major Major Disease Active Univers depressive depressive 7-17 it y of disorder disorder 00:00: [place] [facility] Troponin I Troponin I Disease Active U nivers above above 6-07 ity of reference reference 00[place]00[place] range range [place] Acute Acute Disease Active Univers pancreatit pancreatit 6-06 it y of is is 00:00: [place] [facility] Status 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:00: [place] amputation amputation 00 Me dical of right of right Branch lower lower extremity extremity Wound Wound Disease Active Univers dehiscence dehiscence 5-16 it y of , initial , initial 00:[place] encounter encounter 00 [facility] Essential Essential Disease Active Uni vers hypertensi hypertensi 4-25 it y of on on 00:00: [place] [facility] Mixed Mixed Disease Active Univers hyperlipid hyperlipid 4-25 it y of emia emia 00:00: [place] [facility] Hypothyroi Hypothyroi Disease Active U nivers dism dism 4-24 ity of (acquired) (acquired) [place] [facility] [place] Altered Altered Disease Active Methodi mental mental 4-07 st status, status, 00:00: Hospita unspecifie unspecifie 00 l d d Confusion Confusion Disease Active Met hodi 3-21 st 00:00: Hospita 00 l S/P BKA S/P BKA Disease Active Methodi (below (below 2-20 st knee knee 00:00: Hospita amputation amputation 00 l ) ) unilateral unilateral 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 2-18 ity of 00:00: [place] [facility] Type 2 Type 2 Disease Active Univers diabetes diabetes 2-18 ity of mellitus mellitus 00:00: [place] with with 00 Medical diabetic diabetic Branch neuropathy neuropathy , with , with long-term long-term current current use of use of insulin insulin Senile Senile Disease Active Univers nuclear nuclear 2-18 ity of sclerosis, sclerosis, 00:[place] bilateral bilateral 00 Medi aranza Branch Meibomian Meibomian Disease Active Uni vers gland gland 2-18 ity of disease, disease, 00:00: [place] unspecifie unspecifie 00 Me dical d d Branch laterality laterality Eyelid Eyelid Disease Active Univers twitch twitch 2-18 ity of 00:00: [place] 00 Medical Branch Sinusitis, Sinusitis, Disease Active Overview : Univers chronic chronic -29 Formattin ity o f 00:00: g of this 00 note Medical might be Branch different from the original. ICD10 Diagnosis Term Advanced Manager Utility Esophageal Esophageal Disease Active U nivers reflux reflux -29 ity of 00:00: [place] 00 Medical Branch Allergies, Adverse Reactions, Alerts Allergy Allergy Status Severity Reaction(s) Onset Inactive Treating Comm ents Source Name Type Date Date Clinician Latex, Propensi Active Rash Doesn't Methodi Natural ty to 3-[address] Rubber adverse 00:00: underwear Hospit a reaction 00 . l s to drug LATEX, Drug Active Low Rash Univers NATURAL Class 3-07 ity of RUBBER 00:00: [place] 00 Medical Branch Latex, Propensi Active Rash Doesn't Univers Natural ty to 3-07 wear ity of Rubber adverse 00:00: underwear [place] reaction 00 . Medical s Branch LATEX DRUG Active High Rash Univers INGREDI 2-18 ity of 00:00: [place] 00 Medical Branch Latex Propensi Active Rash Univers ty to 2-18 ity of adverse 00:00: [place] reaction 00 Medical s Branch Family History Family Member Diagnosis Comments Start Date Stop Date Source Natural father [facility] Natural mother Cancer [facility] Social History Social Habit Start Date Stop Date Quantity Comments Source History of tobacco 1974-08-11 Cigarette Smoker [facility] use 00:00:00 [facility] Education 2021-05-13 2021-05-13 University 00:00:00 00:00:00 [facility] [place] [facility] Alcohol intake 2020-01-30 2020-01-30 Current [facility] 00:00:00 00:00:00 non-drinker of Hospital alcohol (finding) Cigarettes smoked 2016-07-13 2016-07-[address] current (pack per 00:00:00 00:00:00 Hospita l ) - Reported Cigarette 2016-07-13 2016-07-13 [facility] pack-years 00:00:00 00:00:00 Hospital Tobacco use and 2016-07-13 2016-07-13 Smokeless [facility] exposure 00:00:00 00:00:00 tobacco non-user Hospital Sex Assigned At [birth year] F [facility] 00:00:00 00:00:00 Hospital Smoking Status Start Date Stop Date Source Current every day smoker 2015-07-11 00:00:00 Uni versity of [place] [facility] Medications Ordered Filled Start Stop Current Ordering Indication Dosage Frequency Signature Comments Components Source Medication Medication Date Date Medication? Clinician (SIG) Name Name morphine ER 2020-05 Yes 15mg Take 15 mg Univers 15 mg 12 hr 2-24 by mouth 2 it y of tablet 02:38: (two) [place] times Medical daily. Branch buPROPion 2020-05 Yes 100mg Take 100 Uni vers SR 100 mg 2-24 mg by ity of SR tablet 02:38: mouth daily. Medical Branch citalopram 2020-05 Yes 40mg Take 40 mg U nivers 20 mg 2-22 by mouth ity of tablet 14:57: daily. Medical Branch oxybutynin 2020-05 Yes 5mg Take 5 mg Un matthew chloride 5 2-22 by mouth 3 ity of mg tablet 14:57: (three) times Medical daily. Branch rifAXIMin 2020-05 Yes 550mg Take 550 Uni vers (XIFAXAN) 2-22 mg by ity of 550 mg 14:57: mouth 2 [place] tablet 09 (two) Medical times Branch daily. lisinopril 2020-05 Yes 2.5mg Take 2.5 Un matthew 2.5 mg 2-22 mg by ity of tablet 14:57: mouth daily. Medical Branch ursodiol 2020-05 Yes 600mg Take 600 Univ ers 300 mg 2-22 mg by ity of capsule 14:57: mouth 3 [place] (three) Medical times Branch daily. prazosin 1 2020-05 Yes 1mg Take 1 mg Un matthew mg capsule 2-22 by mouth ity o f 14:57: daily. [place] [facility] hydroCHLORO 2020-05 Yes 25mg Take 25 mg Univers thiazide 25 2-22 by mouth ity of mg tablet 14:57: daily. [address] levothyroxi 2020-05 Yes [id number] 50ug Take 1 Univers ne 50 mcg 2-16 tablet by ity o f tablet 00:00: mouth [place] 00 every Medical morning. Branch ALPRAZolam 2020-05- No [id number] 1mg Take 1 Methodi (Xanax) 1 2-16 12-17 tablet (1 st MG tablet 00:00: 05:59 mg total) Ho spita 00 :00 by mouth l once as needed for anxiety (for MRI) for up to 1 dose. Insulin 2020-05 Yes [id number] 30U inject 30 U nivers Glargine 2-14 Units ity of (LANTUS 00:00: under the [place] SOLOSTAL 00 skin Medical U-100 daily. [facility] INSULIN) 100 unit/mL (3 mL) injection pioglitazon 2020-05 Yes [id number] 15mg Take 1 Univers e 15 mg 2-14 tablet by ity of tablet 00:00: mouth [place] 00 daily. Medical Branch ursodioL Yes Take 2 Methodi (ACTIGALL) 5-[address] 300 mg 00:00: twice a Hospita capsule 00 day l OMEPRAZOLE 2020-0 Yes 20mg Q.5D Take 20 mg M ethodi (PRILOSEC -[address] ORAL) 10:58: (two) Hospita 15 times a l day. Unknown dosage LACTOBACILL 2020-0 Yes 1{tbl} Take 1 Me thodi US 9-[address] ACIDOPHILUS 10:58: mouth Hospi ta (PROBIOTIC 15 daily. l ORAL) oxybutynin 2020-0 Yes 5mg Q.5D Take 5 mg Me thodi (DITROPAN) 9-[address] 5 MG tablet 10:58: (two) Hospi ta 15 times a l day. levothyroxi 2020-0 Yes 100ug QD Take 100 M ethodi ne 9-[address] (SYNTHROID, 10:58: mouth Hospi ta LEVOXYL) 15 daily. l 100 mcg tablet citalopram 2019-0 Yes 20mg QD Take 20 mg M ethodi (CeleXA) [address] MG tablet 10:58: daily. Hospit a 15 l tiZANidine 2020-0 Yes 4mg Q8H Take 4 mg Me thodi (ZANAFLEX) [address] 4 MG tablet 10:58: every 8 Hos zara 15 (eight) l hours as needed for muscle spasms. pioglitazon 2020-0 Yes 15mg Q.5D Take 15 mg Methodi e (ACTOS) 9-[address] 15 MG 10:58: (two) Hospita tablet 15 times a l day. nitrofurant 2019-0 Yes 50mg QD Take 50 mg Methodi oin 01-[address] (MACRODANTI 10:58: daily. Hosp thom N) 50 MG 15 l capsule Xifaxan 550 2019-2020- No [id number] 550mg Q.5D Take 1 Methodi mg tablet 10-[address] 00:00: 04:59 (550 mg Hospita 00 :00 total) by l mouth 2 (two) times a day. ursodioL 2020- No 600mg Q.5D Take 2 Metho di (ACTIGALL) 09-26 05-[address] 300 mg 00:00: 04:59 (600 mg Hospita capsule 00 :00 total) by l mouth 2 (two) times a day. Take 600 mg (Two Capsules) by mouth, Two times daily atenolol 2018-05 Yes 25mg Q.5D Take 25 mg Met hodi (TENORMIN) 0-[address] 50 MG 12:13: (two) Hospita tablet 39 times a l day. lisinopril 2018- Yes 2.5mg QD Take 2.5 Me thodi (PRINIVIL,Z 3-[address] ESTRIL) 2.5 00:00: mouth Hospi ta mg tablet 00 daily. l morPHINE 2019-0 Yes 15mg Q.5D Take 15 mg Met hodi (MS CONTIN) 3-[address] 15 MG 12 hr 00:00: (two) Hospi ta tablet 00 times a l day. hydroCHLORO 2017-0 Yes 12.5mg QD Take 12.5 Methodi thiazide 4-[address] (MICROZIDE) 00:00: mouth Hospi ta 12.5 mg 00 daily. l capsule Immunizations Ordered Filled Immunization Date Status Comments [facility] e Immunization Name Name Influenza Virus 2020-04-30 Completed Universit y of Vaccine Quad .5 mL 00:00:00 [facility] 6+ MO Branch Influenza Virus 2019-04-07 Completed Universit y of Vaccine (3+ yrs) 00:00:00 [facility] [place] [facility] dical Branch Pneumococcal 7 2019-04-07 Completed University of Conjugate, PCV7 00:00:00 [place] [facility] ical (Prevnar7) Branch Influenza Trivalent 2019-04-07 Completed Metho dist 00:00:00 Hospital Pneumococcal 2019-04-07 Completed [facility] Conjugate 00:00:00 Hospital Pneumococcal 2019-03-31 Completed University o f Polysaccharide, 00:00:00 [facility] ical PPSV23 (PNEUMOVAX) Branch Zoster Vaccine 2018-09-16 Completed University of Recombinant 00:00:00 [facility] [place] [facility] Zoster Vaccine 2018-07-22 Completed University of Recombinant 00:00:00 [facility] [place] [facility] Influenza Virus 2018-02-24 Completed Universit y of Vaccine Quad ID 00:00:00 [facility] ical 18-64 YRS Branch Pneumococcal 2018-02-24 Completed University o f Polysaccharide, 00:00:00 [facility] ical PPSV23 (PNEUMOVAX) Branch Influenza Virus 2017-03-02 Completed Universit y of Vaccine Quad IM 3+ 00:00:00 [facility] Branch Pneumococcal 13 2016-08-30 Completed Universit y of Conjugate, PCV13 00:00:00 [facility] [place] [facility] dical (Prevnar 13) Branch Pneumococcal 2016-08-30 Completed [facility] Conjugate 13-Valent 00:00:00 Hospi rayo Procedures Procedure Date / Time Performing Clinician Source Performed CBC WITH PLATELET AND 2021-04-15 14:50:00 Diana Key [facility] DIFFERENTIAL COMPREHENSIVE METABOLIC 2021-04-15 14:50:00 Diana Key [facility] PANEL PROTHROMBIN TIME WITH INR 2021-04-15 14:50:00 Diana Key [facility] GGT 2021-04-15 14:50:00 Diana Key H ospital US ABDOMEN COMPLETE 2021-03-21 [facility] AND 2021-03-21 13:20:00 Diana Key [facility] DIFFERENTIAL COMPREHENSIVE METABOLIC 2021-03-21 13:20:00 Diana Key [facility] PANEL PROTHROMBIN TIME WITH INR 2021-03-21 13:20:00 Diana Key [facility] ALPHA FETOPROTEIN 2021-03-21 13:20[facility] AND 2020-12-27 15:07:00 Diana Key [facility] DIFFERENTIAL COMPREHENSIVE METABOLIC 2020-12-27 15:07:00 Diana Key [facility] PANEL IMMUNOGLOBULIN G, A, M 2020-12-27 15:07:00 Shahid [facility] PROTHROMBIN TIME WITH INR 2020-12-27 15:07:00 Diana Key [facility] FIBRINOGEN 2020-12-27 15:07:00 Diana Key [facility] ospital PARTIAL THROMBOPLASTIN 2020-12-27 15:07:00 Diana Key [facility] TIME (PTT) SERUM ELECTROPHORESIS 2020-12-27 15:07:00 Shahid [facility] US ABDOMINAL DOPPLER 2020-09-27 16:00:19 Diana Key [facility] US ABDOMEN COMPLETE 2020-09-27 15:57:34 Diana Key Tiffanie [facility] CBC WITH PLATELET AND 2020-09-27 15:55:00 Diana Key [facility] DIFFERENTIAL COMPREHENSIVE METABOLIC 2020-09-27 15:55:00 Diana Key [facility] PANEL GGT 2020-09-27 15:55:00 Diana Key [facility] ospital PROTHROMBIN TIME WITH INR 2020-09-27 15:55:00 Diana Key [facility] IMMUNOGLOBULIN G, A, M 2020-09-27 15:55:00 Diana Key Tiffanie [facility] GGT 2020-08-08 15:13:00 Diana Key [facility] COMPREHENSIVE METABOLIC 2020-08-08 15:13:00 Diana Key [facility] PANEL PROTHROMBIN TIME WITH INR 2020-08-08 15:13:00 Diana Key [facility] CBC WITH PLATELET AND 2020-08-08 15:13:00 Diana Key [facility] DIFFERENTIAL HEMOGLOBIN A1C 2020-08-08 15:13:00 Diana Key ospital Plan of Care Planned Activity Planned Date Details Comments Source Future Scheduled 2021-06-24 DIABETES: RETINAL EYE [facility] Test 09:10:35 EXAM [code = DIABETES: RETINAL EYE EXAM] Future Scheduled 2021-06-24 DIABETIC FOOT EXAM [facility] Test 09:10:35 [code = DIABETIC FOOT EXAM] Future Scheduled 2021-06-24 URINE MICROALBUMIN [facility] Test 09:10:35 [code = URINE MICROALBUMIN] Future Scheduled 2021-06-24 Hepatitis C screening [facility] Test 09:10:35 (procedure) [code = 118471473] Future Scheduled 2021-06-24 Screening for [facility] Test 09:10:35 malignant neoplasm of cervix (procedure) [code = 384525023] Future Scheduled 2021-06-24 BREAST CANCER [facility] Test 09:10:35 SCREENING [code = BREAST CANCER SCREENING] Future Scheduled 2021-06-24 COLONOSCOPY SCREENING [facility] Test 09:10:35 [code = COLONOSCOPY SCREENING] Future Scheduled 2021-06-24 SHINGLES VACCINES (#2) [facility] Test 09:10:35 [code = SHINGLES VACCINES (#2)] Future Scheduled 2021-06-24 INFLUENZA VACCINE [facility] Test 09:10:35 [code = INFLUENZA VACCINE] Future Scheduled 2021-06-24 COVID-19 VACCINE (3 - Me [facility] Test 09:10:35 Booster for Moderna series) [code = COVID-19 VACCINE (3 - Booster for Moderna series)] Encounters Start End Encounter Admission Attending Care Care Encounter Source Date/Time Date/Time Type Type Clinicians Facility Department ID 2021-07-14 2021-07-14 Outpatient ELIEL ROTHMAN [facility] [id number] [facility] 11:20:00 11:44:23 ELIEL POWELL vernell [facility] 2021-06-26 2021-06-26 Outpatient SHAHID [facility] [id number] [place] 00:00:00 00:00:00 DIANA [address] 2021-06-23 2021-06-23 Adwoa Okeefe, 1.2.840.1 [id number] Methodi 00:00:00 00:00:00 Only Amrit 84853.1.[address] 3.430.2.7 Hospit a .3.881098 l .8 2021-06-20 2021-06-20 [facility] 1.2.840.114 [id number] Univers 00:00:00 00:00:00 [facility].7[facility].686 Miguel perry PROFESSIO [id number] [place] [id number] 2021-05-08 2021-05-08 Adwoa Key, 1.2.840.1 [id number] Methodi 00:00:00 00:00:00 Only Diana Roe50.1.[address] 3.430.2.7 Hospit a .3.344490 l .8 2021-03-27 2021-03-27 Telemedici Shahid, 1.2.840.1 [id number] Methodi 15:00:59 15:01:10 ne Diana Roe50.1.[address] 3.430.2.7 Hospit a .3.033420 l .8 2021-03-21 2021-03-21 Tulio Key, 1.2.840.1 [id number] Methodi 07:50:49 07:55:49 Diana Muir [address]35.1.[address] 3.430.2.7 Hospit a .3.028783 l .8 2021-02-07 2021-02-07 Travel 1.2.840.1 1.2.451.587 [id number] Methodi 00:00:00 00:00:[address] 3.430.2.7 0.2.7.3.698 Ho spita .3.965960 084.8 l .8 2021-01-09 2021-01-09 Telemedicarnol Key 1.2.840.1 [id number] Methodi 14:04:56 14:14:38 ne Diana Muir 08649.1.[address] 3.430.2.7 Hospit a .3.409259 l .8 2020-12-27 2020-12-27 Travel 1.2.840.1 1.2.061.415 [id number] Methodi 00:00:00 00:00:[address] 3.430.2.7 0.2.7.3.698 Ho spita .3.427224 084.8 l .8 2020-10-14 2020-10-14 Zen Okeefe, 1.2.840.1 [id number] Methodi 00:00:00 00:00:[address] 3.430.2.7 Hospit a .3.391869 l .8 2020-10-07 2020-10-07 [facility] Shahid 1.2.840.1 [id number] Methodi 14:10:47 14:32:11 ne Diana Muir 02860.1.[address] 3.430.2.7 Hospit a .3.232885 l .8 2020-09-27 2020-09-27 Tulio Key 1.2.840.1 [id number] Methodi 10:49:12 10:54:12 [address] Muir [address] 3.430.2.7 Hospit a .3.799888 l .8 2020-09-27 2020-09-27 Travel 1.2.840.1 1.2.986.039 [id number] Methodi 00:00:00 00:00:[address] 3.430.2.7 0.2.7.3.698 Ho spita .3.874482 084.8 l .8 2020-08-08 2020-08-08 Telemedici Shahid 1.2.840.1 [id number] Methodi 10:17:26 10:32:43 pastor Muir 60920.1.1 537 3.430.2.7 Hospit a .3.443434 l .8 Results Test Description Test Time Test Comments Results Result Comments Source Comprehensive metabolic panel 2021-04-16 08:56:00 Test Item Value Reference Range Interpretation Comme nts Glucose (test code = 118 mg/dL 65-99 H Fasting 2345-7) reference inter emmy For someone without known diabetes, a glu cose valuebetween 10 0 and 125 mg/dL is consis tent withprediabetes and should be confi rmed with afollow-up test . BUN (test code = 3094-0) 22 mg/dL 7-25 Creatinine (test code = 0.89 mg/dL 0.50-0.99 For patients >49 years of 2160-0) age, the refere nce limitfor Creati nine is approximately 1 3% higher for peopleident ified as -Rabia n. EGFR Non-Afr. [place]alan See_Comment [Aut omated message] The (test code = 2775) system Yugma generated this result tra nsmitted reference range : > OR = 60 mL/min/1.73m 2. The reference range was not used to interpr et this result as normal/abnormal . EGFR See_Comment [Auto mated message] The (test code = 2774) system Yugma generated this result tra nsmitted reference range : > OR = 60 mL/min/1.73m 2. The reference range was not used to interpr et this result as normal/abnormal . BUN/creatinine ratio NOT APPLICABLE See_Comment [Aut omated message] The (test code = 3097-3) system which generated this result tra nsmitted reference range : 6 - 22 (calc). The ref erence range was not u sed to interpret this result as normal/abnormal . Sodium (test code = 134 mmol/L 135-146 L 2951-2) Potassium (test code = 4.4 mmol/L 3.5-5.3 2823-3) Chloride (test code = 96 mmol/L 98-110 L 5-0) CO2 (test code = 2028-01) 27 mmol/L 20-32 Calcium (test code = 8.9 mg/dL 8.6-10.4 94691-8) Protein (test code = 6.8 g/dL 6.1-8.1 2885-2) Albumin, S (test code = 3.2 g/dL 3.6-5.1 L 1751-7) Globulin, total (test See_Comment [Auto mated message] The code = 01175-8) system which generated this result tra nsmitted reference range : 1.9 - 3.7 g/dL (calc) . The reference range was not used to interpr et this result as normal/abnormal . Albumin/globulin ratio See_Comment L [Aut omated message] The (test code = 1759-0) system which generated this result tra nsmitted reference range : 1.0 - 2.5 (calc). The reference range was not u sed to interpret this result as normal/abnormal . Total bilirubin (test 0.5 mg/dL 0.2-1.2 code = 1975-2) Alkaline phosphatase 164 U/L 37-153 H (test code = 6768-6) AST (test code = 1920-8) 18 U/L 10-35 ALT (test code = 1742-6) 7 U/L 6-29 SARAH (test code = SARAH) FASTING:YES FASTING: YES RAC (test code = RAC) Performing Organization Information: Site ID: [facility] Address: [address] [place] [phone] Director: Pastor Main Lab Interpretation (test Abnormal code = 96869-6) [facility]2021-11-24 08:56:00 Test Item Value Reference Range Interpretation Comments GGT (test code = 43 U/L 3-65 2324-2) SARAH (test code = FASTING:YES FASTING: YES SARAH) RAC (test code = Performing Organization RAC) Information: Site ID: [facility] Address: [address] [place] [phone] Director: Pastor Main [facility] with platelet and [id number] 08:56:00 Test Item Value Reference Range Interpretation Comments WBC (test code = See_Comment H [Automated 6590-2) message] The system which generated this result transmitted reference range : 3.8 - 10.8 Thousand/uL. Th e reference range was not used to interpret this result as normal/abnormal . RBC (test code = See_Comment H [Automated 789-8) message] The system which generated this result transmitted reference range : 3.80 - 5.10 Million/uL. The reference range was not used to interpret this result as normal/abnormal . HGB (test code = 15.9 g/dL 11.7-15.5 H 718-7) HCT (test code = 47.4 % 35.0-45.0 H 4544-3) MCV (test code = 89.1 fL 80.0-100.0 787-2) MCH (test code = 29.9 pg 27.0-33.0 785-6) MCHC (test code = 33.5 g/dL 32.0-36.0 786-4) RDW (test code = 12.6 % 11.0-15.0 788-0) Platelet count (test See_Comment L [Autom ated code = 777-3) message] The system which generated this result transmitted reference range : 140 - 400 Thousand/uL. Th e reference range was not used to interpret this result as normal/abnormal . MPV (test code = 13.5 fL 7.5-12.5 H 776-5) Neutrophils, See_Comment H [Automated absolute (test code message] The = 751-8) system which generated this result transmitted reference range : 1,500 - 7,800 cells/uL. The reference range was not used to interpret this result as normal/abnormal . Lymphocytes, See_Comment [Automated absolute (test code message] The = 731-0) system which generated this result transmitted reference range : 850 - 3,900 cells/uL. The reference range was not used to interpret this result as normal/abnormal . Monocytes, absolute See_Comment [Automa alyssia (test code = 742-7) message] The system which generated this result transmitted reference range : 200 - 950 cells/uL. The reference range was not used to interpret this result as normal/abnormal . Eosinophils, See_Comment [Automated absolute (test code message] The = 711-2) system which generated this result transmitted reference range : 15 - 500 cells/uL. The reference range was not used to interpret this result as normal/abnormal . Basophils, absolute See_Comment [Automa alyssia (test code = 704-7) message] The system which generated this result transmitted reference range : 0 - 200 cells/u L. The reference range was not used to interpr et this result as normal/abnormal . Neutrophils (test 69.9 % code = 770-8) Lymphocytes (test 21.1 % code = 736-9) Monocytes (test code 6.6 % = 5905-5) Eosinophils (test 1.2 % code = 713-8) Basophils + RC (test 1.2 % code = 706-2) SARAH (test code = FASTING:YES SARAH) FASTING: YES RAC (test code = Performing RAC) Organization Information: Site ID: [facility] Address: [address] [place] [id number] Director: Pastor Main Lab Interpretation Abnormal (test code = 97183-5) [facility] CenterProthrombin time with [id number] 08:56:00 Test Item Value Reference Range Interpretation Comments INR (test code = Reference R herman 6301-6) 0.9-1.1Moderate -i ntensity Warfar in Therapy 2.0-3.0Higher-i nt ensity Warfarin Therapy 3.0-4 .0 Prothrombin time See_Comment For additio nal (test code = information, 5902-2) please refer tohttp://educat io n.[employer]/faq/FAQ10 4( This link is being provided for informational/e du cational purpos es only.) [Automated message] The system which generated this result transmitted reference range : 9.0 - 11.5 sec. The reference range was not used to interpr et this result as normal/abnormal . SARAH (test code = FASTING:YES SARAH) FASTING: YES RAC (test code = Performing RAC) Organization Information: [facility] ID: [facility] Address: [address] [place] [id number] Director: Pastor Main [facility] CenterAlpha [id number] 15:57:00 Test Item Value Reference Interpretation Comments Range Alpha 5.3 ng/mL Reference Range : <6.1The fetoprotein use of AFP as a tumor (test code = marker in pregn antfemales 72980-3) is not recommen ded. This test was perfor med using the Iza Coulterchemilum inescent method. Values obtained fromdifferent a ssay methods cannot be usedinterchange ably. AFP levels, regardl ess ofvalue, should not be interpreted as absoluteevidenc e of the presence or abs ence of disease. RAC (test code Performing = RAC) Organization Information: Site ID: IG Name: [facility] Lab Address: [address] [place] [address], [place] [address] Director: Dr. Pastor Main [facility] [id number] 09:13:00 Test Item Value Reference Range Interpretation Comments Protein (test code = 7.5 g/dL 6.1-8.1 2885-2) Albumin, S (test 3.4 g/dL 3.8-4.8 L code = 2862-1) Kygvl-0-aomqedzs 0.3 g/dL 0.2-0.3 (test code = 2865-4) Dunua-7-wrocanuk 0.8 g/dL 0.5-0.9 (test code = 2868-8) Beta-1 globulin 0.6 g/dL 0.4-0.6 (test code = 17303-9) Beta-2 globulin 0.6 g/dL 0.2-0.5 H (test code = 12837-7) Gamma globulin (test 1.8 g/dL 0.8-1.7 H code = 2874-6) Interpretation (test Consis tent with code = 59311-8) a chronic inflammatory pattern Possib le monoclonal protein (M-protein) present.Suggest serum immunofixation. SARAH (test code = FASTING:YES SARAH) FASTING: YES RAC (test code = Performing RAC) Organization Information: Site ID: IG [facility] Address: [address] [place] [address] Director: Dr. Pastor Main Lab Interpretation Abnormal (test code = 07464-3) [facility] CenterImmunoglobulin G, A, [id number] 09:13:00 Test Item Value Reference Range Interpretation Comments IgA (test code = 2458-8) 550 mg/dL 70-320 H IgG (test code = 2465-3) 1872 mg/dL 600-1540 H IgM (test code = 2472-9) 140 mg/dL 50-300 SARAH (test code = SARAH) FASTING:YES FASTING: YES RAC (test code = RAC) Performing Organization Information: Site ID: [facility]ULA [facility] Address: [address] [place] [phone] Director: Pastor Main Lab Interpretation (test Abnormal code = 28830-2) [facility] [id number] 09:13:00 Test Item Value Reference Range Interpretation Comments Fibrinogen (test code 402 mg/dL 175-425 = 3255-7) SARAH (test code = SARAH) FASTING:YES FASTING: YES RAC (test code = RAC) Performing Organization Information: Site ID: [facility]UL[facility] Address: [address] [place] [address] Director: [place] Reymundo [facility]Gal[facility] HospitalPartial thromboplastin time, [id number] 09:13:00 Test Item Value Reference Interpretation Comments Range PTT (test See_Comment This test [place] = [place] [address]-2) monitoringunfra ctionated heparin therapy . For testing thatis validate d for this type of therapy , please referto the Hep jayden Anti-Xa assay (test [place] e [address]). For additional info rmation, please refer tohttp://educat ion.[employer]/faq/ EEL739(This link is being p rovided for informational/e ducational purposes only.) [Automated message] The sy stem which generated this result transmitted ref erence range: 23 - 32 sec. Th e reference range was not u sed to interpret this result as normal/abnormal . SARAH (test FASTING:YES code = FASTING: YES SARAH) RAC (test Performing code = Organization RAC) Information: Site ID: [facility] Address: [address] [place] [phone] Director: [place] Reym[facility]
--- NOTE | 2021-09-10 19:02 | RAD REPORT ---
EXAM DESCRIPTION: CT - Head C Spine Mpr Wo Con - 09/10/2021 6:45 pm CLINICAL HISTORY: Head and neck injury status post fall. Head and neck pain COMPARISON: None. TECHNIQUE: Computed axial tomography of the head and cervical spine was obtained. Sagittal and coronal reconstruction was performed. All CT scans are performed using dose optimization technique as appropriate and may include automated exposure control or mA/KV adjustment according to patient size. FINDINGS: An intracranial bleed is not seen. 2.5 cm low density area right cerebellum and smaller low density left cerebellum probably old infarct ion. The ventricles are normal in caliber. An extra-axial fluid collection is not noted. Fluid within the visualized sinuses and mastoids is not seen A cervical fracture is not visualized. No dislocation is noted. Spondylosis C4-5 and C5-6 results in moderate central spinal stenosis COPD IMPRESSION: No acute intracranial abnormality is seen. A cervical fracture is not visualized. If the patient continues to have symptoms to suggest intracra nial /spinal cord pathology then MRI would be recommended
--- NOTE | 2021-09-10 19:16 | RAD REPORT ---
EXAM DESCRIPTION: Darin Single View09/10/2021 6:59 pm CLINICAL HISTORY: Chest pain status post fall COMPARISON: 2018 FINDINGS: Prominent bullous emphysema with pulmonary scarring. Lungs appear clear of acute infiltrate. Heart is probably borderline enlarged
[2021-09-10 20:45] LABS: Urine Blood Negative (Negative); Urine Glucose Negative (Negative); Urine Protein Negative (Negative); Urine Specific Gravity >=1.030 (1.005-1.030); Urine pH 5.5 (5.0-7.0)
[2021-09-10 21:08] LABS: Urine Bacteria <20 /HPF (<20); Urine RBC <5 /HPF (NONE SEEN)
[2021-09-10 22:07] LABS: Absolute Lymphocytes (CBC) 1.5 K/uL (0.7-4.9); Hematocrit 45.3 % (36.0-45.0); Lymphocytes % 17.6 % (15.3-44.8); MPV 11.9 fL (7.6-11.3); RBC Red Blood Cell Count 5.17 M/uL (3.86-4.86)
[2021-09-10 22:09] LABS: Protime INR 1.05
[2021-09-10 22:28] LABS: AST/SGOT 20 U/L (15-37); Albumin 2.7 g/dL (3.4-5.0); Alkaline Phosphatase 206 U/L (45-117); BUN Blood Urea Nitrogen 19 mg/dL (7-18); Bicarbonate 27 mmol/L (21-32); Bilirubin Direct 0.1 mg/dL (0-0.2); Bilirubin Total 0.4 mg/dL (0.2-1.0); Creatine Phosphokinase 63 U/L (26-192); Glucose Level 139 mg/dL (74-106); Magnesium 1.9 mg/dL (1.8-2.4); NT PRO-BNP 415 pg/mL (<125); Potassium 3.8 mmol/L (3.5-5.1); Protein, Total 8.4 g/dL (6.4-8.2); Sodium Level 143 mmol/L (136-145)
[2021-09-10 22:33] LABS: ALT/SGPT < 10 U/L (12-78)
[2021-09-10 22:39] LABS: Troponin High Sensitivity 222.7 pg/mL (<58.9)
[2021-09-10 22:46] LABS: Blood Morphology Comment NOTED (NOT SEEN); Platelet Estimate INCR; Platelets, Giant FEW; White Blood Cell Scan OK (OK)
--- NOTE | 2021-09-11 00:29 | EDPHYS ---
Physician Documentation [facility] Name: Mary Valverde Age: 61 yrs Sex: Female : 1960 Arrival Date: 09/10/2021 Time: 18:06 Bed 23 Private MD: ED Physician Mike Freedman HPI: 09/10 21:16 This 61 yrs old Female presents to ER via EMS with complaints of Altered Mental Status. cp 21:16 The patient presents with decreased mental status. cp 21:16 Onset: The symptoms/episode began/occurred today. Possible causes: liver disease. cp Associated signs and symptoms: Pertinent negatives: abdominal pain, chest pain, fever. Patient's baseline: Neuro: alert and fully oriented, Motor: no deficits, Ambulation: walks with assist only, Speech: normal, The patient has a previous history of hepatic encephalopathy. Historical: - Allergies: 18:25 No Known Allergies; ap3 - Home Meds: 21:37 Xifaxan 550 mg oral tab 1 tab 2 times per day [Active]; pregabalin 100 mg Oral cap bb [Active]; levothyroxine 50 mcg cap 1 cap once daily [Active]; verio FL one touch kit [Active]; tizanidine 4 mg oral cap [Active]; nitrofurantoin macrocrystal 100 mg Oral cap [Active]; prazosin 1 mg Oral cap [Active]; metoclopramide HCl 5 mg Oral tab [Active]; hydrochlorothiazide 25 mg Oral tab 1 tab once daily [Active]; Albuterol Inhl [Active]; azithromycin Oral [Active]; morphine 15 mg Oral TR12 [Active]; fluconazole 200 mg Oral tab [Active]; Oxybutynin Chloride Oral [Active]; citalopram 20 mg tab [Active]; ursodiol 300 mg Oral cap [Active]; - Immunization history:: Adult Immunizations unknown. - Social history:: Smoking status: unknown. ROS: 21:20 Constitutional: Negative for fever. cp 21:20 Neuro: Positive for altered mental status. 21:20 Unable to obtain ROS due to altered mental status. Exam: 18:45 Constitutional: The patient appears in no acute distress, non-diaphoretic, non-toxic, cp well developed, well nourished, obese. 18:45 Head/Face: Normocephalic, atraumatic. cp 18:45 Eyes: Pupils: equal, round, and reactive to light and accomodation, Conjunctiva: normal, no exudate, no injection, Sclera: no appreciated abnormality, Lids and lashes: appear normal, bilaterally. 18:45 ENT: External ear(s): are unremarkable, Nose: is normal, Mouth: Lips: moist, Oral mucosa: moist, Posterior pharynx: Airway: no evidence of obstruction, patent. 18:45 Neck: ROM/movement: is normal, is supple, without pain, no range of motions limitations, no meningismus, no nuchal rigidity. 18:45 Chest/axilla: Inspection: normal, Palpation: is normal, no crepitus, no tenderness. 18:45 Cardiovascular: Rate: normal, Rhythm: regular, Edema: is not appreciated, JVD: is not appreciated. 18:45 Respiratory: the patient does not display signs of respiratory distress, Respirations: normal, no use of accessory muscles, no retractions, labored breathing, is not present, Breath sounds: are clear throughout, no decreased breath sounds, no stridor, no wheezing. 18:45 Abdomen/GI: Inspection: abdomen appears normal, Bowel sounds: active, all quadrants, Palpation: soft, in all quadrants, rebound tenderness, is not appreciated. 18:45 Neuro: Orientation: Not oriented to person, place, situation, Mentation: sleepy, Motor: moves all fours, strength is normal. 19:10 ECG was reviewed by the Attending Physician. cp Vital Signs: 18:21 BP 159 / 70; Pulse 64; Resp 17; Temp 98.1; Pulse Ox 94% ; ap3 19:55 BP 161 / 69; Pulse 71; Resp 16 S; Pulse Ox 94% on R/A; bb 20:52 BP 156 / 82; Pulse 85; Resp 14 S; Pulse Ox 93% on R/A; bb 22:40 BP 181 / 64; Pulse 77; Resp 14 S; Pulse Ox 91% on R/A; bb 23:32 BP 161 / 60; Pulse 74; Resp 12 S; Pulse Ox 93% on R/A; bb 09/11 00:15 BP 155 / 89; Pulse 67; Resp 14 S; Pulse Ox 89% on R/A; bb MDM: 09/10 18:21 Patient medically screened. [facility] 09/10 18:28 Order name: Basic Metabolic Panel; Complete Time: 22:57 cp 09/10 23:49 Interpretation: Normal except: CL 111; GLUC 139; BUN 19; GFR 67. cp 09/10 18:28 Order name: CBC with Diff; Complete Time: 22:57 cp 09/10 22:39 Interpretation: Normal except: RBC 5.17; HGB 15.4; HCT 45.3; PLT 116; MPV 11.9; AURY% cp 75.9. 09/10 18:28 Order name: LFT's; Complete Time: 22:57 cp 09/10 23:50 Interpretation: Normal except: ALT < 10; ALK 206; TP 8.4; ALB 2.7; GLOB 5.7; A/G 0.5. cp 09/10 18:28 Order name: Magnesium; Complete Time: 22:57 cp 09/10 18:28 Order name: NT PRO-BNP; Complete Time: 22:57 cp 09/10 18:28 Order name: PT-INR; Complete Time: 22:39 cp 09/10 18:28 Order name: Troponin HS; Complete Time: 22:57 cp 09/11 01:27 Interpretation: Abnormal. sb3 09/10 18:28 Order name: Urine Microscopic Only; Complete Time: 21:16 cp 09/10 18:28 Order name: AMMONIA; Complete Time: 20:45 cp 09/10 21:16 Interpretation: Reviewed. cp 09/10 18:28 Order name: Blood Culture Adult (2) cp 09/10 18:28 Order name: CK; Complete Time: 22:57 cp 09/10 18:28 Order name: Lactate; Complete Time: 22:39 cp 09/10 18:28 Order name: Procalcitonin; Complete Time: 22:57 cp 09/10 20:46 Order name: Urine Dipstick-Ancillary; Complete Time: 21:04 EDMS 09/10 18:28 Order name: XRAY Chest (1 view); Complete Time: 19:31 cp 09/10 21:05 Interpretation: Report review. cp 09/10 18:28 Order name: CT Head C Spine cp 09/10 18:32 Order name: Head C Spine Mpr Wo Con; Complete Time: 19:08 EDMS 09/10 19:09 Interpretation: Report reviewed. cp 09/10 21:29 Order name: CT Head Angio cp 09/10 21:29 Order name: CT Neck Angio cp 09/10 21:57 Order name: COVID-19/FLU A+B (Document "Date of Onset" if Symptomatic); Complete Time: cp 01:25 09/10 22:35 Order name: CBC Smear Scan; Complete Time: 22:57 EDMS 09/11 03:46 Order name: Ammonia; Complete Time: 03:56 EDMS 09/11 03:56 Order name: Troponin High Sensitivity; Complete Time: 03:56 EDMS 09/11 03:56 Order name: Lipid Profile; Complete Time: 03:56 EDMS 09/11 03:56 Order name: T4 Free; Complete Time: 03:56 EDMS 09/11 03:56 Order name: Thyroid Stimulating Hormone; Complete Time: 03:56 EDMS 09/11 07:44 Order name: Glucose, Ancillary Testing EDMS 09/11 12:15 Order name: Glucose, Ancillary Testing EDMS 09/11 12:21 Order name: ABG Arterial Blood Gas EDMS 09/11 13:31 Order name: Troponin High Sensitivity EDMS 09/10 18:28 Order name: EKG; Complete Time: 18:29 cp 09/10 18:28 Order name: Cardiac monitoring; Complete Time: 18:57 cp 09/10 18:28 Order name: EKG - Nurse/Tech; Complete Time: 19:07 cp 09/10 18:28 Order name: IV Saline Lock; Complete Time: 19:16 cp 09/10 18:28 Order name: Labs collected and sent; Complete Time: 19:55 cp 09/10 18:28 Order name: O2 Per Protocol; Complete Time: 18:58 cp 09/10 18:28 Order name: O2 Sat Monitoring; Complete Time: 18:58 cp 09/10 18:28 Order name: Urine Dipstick-Ancillary (obtain specimen); Complete Time: 20:47 cp 09/10 21:36 Order name: Head angio EDMS 09/11 03:57 Order name: EKG; Complete Time: 03:57 rn 09/11 03:57 Order name: EKG - Nurse/Tech; Complete Time: 12:26 rn EC:10 Rate is 68 beats/min. Rhythm is regular. UT interval is normal. QRS interval is normal. cp QT interval is normal. T waves are Inverted in leads aVL, aVR. Interpreted by me. Reviewed by me. Administered Medications: No medications were administered Disposition: 09/11 04:21 Co-signature as Attending Physician, Mike Freedman MD I agree with the assessment and rn plan of care. Attestation: The patient's history, exam findings, diagnostics, and a summary of any interventions or procedures was reviewed in detail with Percy ALVARENGA Repeat ECG performed after uptrending troponin, NSR without ischemia.. Disposition Summary: 09/11/21 00:28 Hospitalization Ordered Hospitalization Status: Inpatient Admission cp Provider: Agustín Machado cp Condition: Stable cp Problem: new cp Symptoms: are unchanged cp Bed/Room Type: Standard cp Location: Telemetry/MedSurg (Inpatient)(09/11/21 13:47) Room Assignment: [facility][note 3](09/11/21 13:47) Diagnosis - Altered mental status, unspecified cp Discharge Instructions: - Discharge Summary Sheet ds4 Forms: - Medication Reconciliation Form cp - SBAR form cp Signatures: Dispatcher [employer] EDChristi Mares RN RN Percy Alberts MD MD cha Ballard, Brenda, RN Mike Lo MD MD rn Page, Corey, COLETTE ALVARENGA cp Carol Epstein RN RN [email or web address] Deena Lopez RN RN [email or web address] Tammy Whiteside PA PA sb3 Corrections: (The following items were deleted from the chart) 00:39 00:28 Telemetry/MedSurg (Inpatient) cp eb1 00:39 00:28 cp eb1 01:27 09/10 23:49 Abnormal: Troponin HS 222.7. cp sb3 09/11 13:47 00:39 [facility] ER HOLD eb1 dw 13:47 00:39 ERHOLD- eb1 dw
--- NOTE | 2021-09-11 00:29 | ER ---
Nurse's Notes [facility] Name: Mary Valverde Age: 61 yrs Sex: Female : 1960 Arrival Date: 09/10/2021 Time: 18:06 Bed 23 Private MD: Diagnosis: Altered mental status, unspecified Presentation: 09/10 18:21 Chief complaint: EMS states: they were called to the families home for a patient who ap3 was found in her home on the floor, with urine and feces all around her. It is reported the last time she was seen normal was yesterday. Family went to check on her today, and found her on the floor, unable to verbally respond. Patient is A/O X's one, but it is reported she typically is A/O X's 4. Coronavirus screen: At this time, the client does not indicate any symptoms associated with coronavirus-19. Ebola Screen: No symptoms or risks identified at this time. Risk Assessment: Do you want to hurt yourself or someone else? Patient reports no desire to harm self or others. Onset of symptoms was September 10, 2021. 18:21 Method Of Arrival: EMS: [facility] ap3 18:21 Acuity: MAMIE 2 bb Triage Assessment: 18:25 General: Appears obese, Behavior is quiet. Pain: Unable to use pain scale. Neuro: Level ap3 of Consciousness is lethargic, Oriented to person. Respiratory: Airway is patent Respiratory effort is even, unlabored. Musculoskeletal: Amputation of healed right BKA. Historical: - Allergies: 18:25 No Known Allergies; ap3 - Home Meds: 21:37 Xifaxan 550 mg oral tab 1 tab 2 times per day [Active]; pregabalin 100 mg Oral cap bb [Active]; levothyroxine 50 mcg cap 1 cap once daily [Active]; verio FL one touch kit [Active]; tizanidine 4 mg oral cap [Active]; nitrofurantoin macrocrystal 100 mg Oral cap [Active]; prazosin 1 mg Oral cap [Active]; metoclopramide HCl 5 mg Oral tab [Active]; hydrochlorothiazide 25 mg Oral tab 1 tab once daily [Active]; Albuterol Inhl [Active]; azithromycin Oral [Active]; morphine 15 mg Oral TR12 [Active]; fluconazole 200 mg Oral tab [Active]; Oxybutynin Chloride Oral [Active]; citalopram 20 mg tab [Active]; ursodiol 300 mg Oral cap [Active]; - Immunization history:: Adult Immunizations unknown. - Social history:: Smoking status: unknown. Screenin:26 Abuse screen: Denies threats or abuse. Nutritional screening: No deficits noted. ap3 Tuberculosis screening: No symptoms or risk factors identified. 21:43 Fall Risk Fall in past 12 months (25 points). Secondary diagnosis (15 points) impaired bb mobility, IV access (20 points). Ambulatory Aid- None/Bed Rest/Nurse Assist (0 pts). Gait- Impaired (20 pts.). Mental Status- Overestimates/Forgets Limitations (15 pts.). Total Adams Fall Scale indicates High Risk Score (45 or more points). Fall prevention measures have been instituted. Side Rails Up X 2 Family Present and informed to notify staff if the need to leave the bedside. Assessment: 18:55 General: Appears in no apparent distress. comfortable, Behavior is calm, inappropriate jd3 for age, listless. 18:55 Pain: Unable to use pain scale. Patient is disoriented. FLACC scale score is 0 out of jd3 10. Neuro: Level of Consciousness is awake, confused, lethargic, Oriented to none. Cardiovascular: Capillary refill < 3 seconds Patient's skin is warm and dry. Rhythm is regular. Respiratory: Airway is patent Respiratory effort is even, unlabored, Respiratory pattern is regular, symmetrical. GI: No signs and/or symptoms were reported involving the gastrointestinal system. : No signs and/or symptoms were reported regarding the genitourinary system. EENT: No signs and/or symptoms were reported regarding the EENT system. Derm: Skin is intact, Skin is dry, Skin is normal, Skin temperature is warm. 19:31 General: Appears ill, Behavior is responsive to painful stimuli only. Cardiovascular: bb Capillary refill < 3 seconds Patient's skin is warm and dry. Respiratory: Respiratory effort is even, unlabored, Respiratory pattern is regular, Breath sounds are clear bilaterally. GI: Abdomen is round Bowel sounds present X 4 quads. Derm: Skin is pink, warm \T\ dry. Musculoskeletal: Amputation of right below the knee amputation. Circulation, motion, and sensation intact. 19:33 Reassessment: phlebotomy at bedside for lab draw. bb 20:45 Reassessment: pt spontaneously opening her eyes, resp unlabored, family at bedside. bb 21:42 Reassessment: pt more alert, eyes open, responds to voice, phlebotomy at bedside for bb lab draw, family at bedside. 22:40 Reassessment: no change in pt condition, remains resting quietly, eyes closed, moans bb occasionally, family at bedside. 23:31 Reassessment: pt returned from CT no change in condition. resp unlabored, IV site bb intact, patent, family at bedside. 09/11 00:04 Reassessment: pt resting quietly turned to left side and cleaned of incontinence. bb 01:12 Reassessment: Tammy ALVARENGA at bedside for discussion of admission with family who bb verbalized understanding of and agree to plan of care of admission to hospital for further evaluation and treatment. 02:05 Reassessment: report given to Zhen YING. bb Vital Signs: 09/10 18:21 BP 159 / 70; Pulse 64; Resp 17; Temp 98.1; Pulse Ox 94% ; ap3 19:55 BP 161 / 69; Pulse 71; Resp 16 S; Pulse Ox 94% on R/A; bb 20:52 BP 156 / 82; Pulse 85; Resp 14 S; Pulse Ox 93% on R/A; bb 22:40 BP 181 / 64; Pulse 77; Resp 14 S; Pulse Ox 91% on R/A; bb 23:32 BP 161 / 60; Pulse 74; Resp 12 S; Pulse Ox 93% on R/A; bb 09/11 00:15 BP 155 / 89; Pulse 67; Resp 14 S; Pulse Ox 89% on R/A; bb ED Course: 09/10 18:06 Patient arrived in ED. iw 18:18 Percy Barrios PA is PHCP. cp 18:18 Percy Busby MD is Attending Physician. cp 18:21 Carol Epstein, STEPAN is Primary Nurse. ap3 18:25 Triage completed. ap3 18:26 Arm band placed on right wrist. ap3 18:46 Head C Spine Mpr Wo Con In Process Unspecified. EDMS 19:01 XRAY Chest (1 view) In Process Unspecified. EDMS 19:33 Maintain EMS IV. Dressing intact. Site clean \T\ dry. Gauge \T\ site: 22 g R Hand. bb 20:40 Straight cath inserted, using sterile technique, 16 Fr. Specimen obtained. Returned 800 bb mLs. Patient tolerated poorly. 21:43 Patient has correct armband on for positive identification. Placed in gown. Bed in low bb position. Call light in reach. Side rails up X2. Adult w/ patient. Pulse ox on. NIBP on. pt covered with sheet. 23:10 Inserted saline lock: 18 gauge in left forearm, using aseptic technique. jb4 23:39 CT Neck Angio In Process Unspecified. EDMS 23:40 Head angio In Process Unspecified. EDMS 09/11 00:05 Cleaned of incontinence. bb 00:15 Attending Physician role handed off by Percy Busby MD rn 00:15 Mike Freedman MD is Attending Physician. rn 00:28 Agustín Machado is Hospitalizing Provider. cp 01:14 No provider procedures requiring assistance completed. Patient admitted, IV remains in bb place. 02:05 Report given to Zhen YING. bb 03:55 Notified the Hospitalist of a critical lab result(s), 298.3 troponin. tw5 Administered Medications: No medications were administered Output: 09/10 20:47 Urine: 800ml (Straight Cath); Total: 800ml. bb Outcome: 09/11 00:28 Decision to Hospitalize by Provider. cp 01:13 Instructed on the need for admit. bb 01:15 Admitted to ER Hold. Please see [facility] for further documentation. bb 01:15 Condition: stable 14:51 Patient left the ED. jd3 Signatures: Dispatcher [employer] EDLy Nolasco RN RN bb Williams, Irene, RN RN iw Nieto, Roman, MD MD rn Page, Corey, PA PA Dylan Mann RN RN jb4 Davies, Jonathon, RN RN jd3 Carol Epstein RN RN ap3 Jacki Chan tw5 Corrections: (The following items were deleted from the chart) 09/10 19:34 18:21 Acuity: MAMIE 3 ap3 bb 20:52 18:55 Musculoskeletal: No signs and/or symptoms reported regarding the musculoskeletal bb system. jd3 20:52 19:31 Musculoskeletal: Circulation, motion, and sensation intact. bb bb
[2021-09-11 00:37] LABS: SARS-COV-2 RT PCR NEGATIVE (NEGATIVE)
--- NOTE | 2021-09-11 01:35 | P.HP ---
Certification for Inpatient Patient admitted to: Inpatient With expected LOS: >2 Midnights Patient will require the following post-hospital care: None Practitioner: I am a practitioner with admitting privileges, knowledge of patient current condition, hospital course, and medical plan of care. Services: Services provided to patient in accordance with Admission requirements found in Title 42 Section 412.3 of the Code of Federal Regulations Patient History Date of Service: 09/11/21 Primary Care Provider: James Charlestrout) Reason for admission: AMS History of Present Illness: Patient is a 61-year-old female with past medical history of nonalcoholic cirrhosis of the liver, hypothyroidism, hypertension, COPD, type 2 diabetes, recurrent UTIs who presented to the ED via EMS with altered mental status. Per patient's daughter, patient lives with her and when he came home from work today he found her on the ground unresponsive surrounded by her urine and feces. Upon arrival to the ER, patient does open her eyes and occasionally grunts and is responsive to painful stimuli. Head CT showed 2.5 cm lodes density area right cerebellum and small low-density left cerebellum probably old infarction, otherwise within normal limits. CTA negative. Troponin elevated at 227 and BNP elevated at 415. EKG negative for ST changes. Ammonia, Pro-Mayur, and lactic acid within normal limits. Urine negative. Patient's daughter reports that she has not improved since arrival. She states that she has these episodes where she becomes confused that are typically related to hepatic encephalopathy, but they have gradually gotten worse over time and lasted longer. Her last episode was in April where she went to [facility] [place] like this however her ammonia was within normal limits and she did not have UTI. She was never given a definitive diagnosis. patient gradually improved over time and returned to baseline. Will admit patient for further evaluation and treatment. Allergies latex Allergy (Verified 08/23/17 14:09) Rash Home Medications: Ascorbic Acid [Vitamin C] 500 mg PO DAILY 08/23/17 Aspirin [Aspirin EC 81 MG] 81 mg PO DAILY 08/23/17 Cholecalciferol (Vitamin D3) [Vitamin D 1000 Iu Tab] 1,000 unit PO DAILY Citalopram Hydrobromide [Citalopram HBr] 30 mg PO DAILY 08/23/17 Insulin Glargine,Hum.rec.anlog [Lantus] 0 unit SQ DAILY 08/23/17 L.acidoph,Paracasei, B.lactis [Probiotic] 1 each PO DAILY 08/23/17 Levothyroxine [Synthroid] 88 mcg PO [id number] 08/23/17 Metoclopramide HCl [Reglan] 5 mg PO BID 08/23/17 Montelukast [Singulair] 10 mg PO DAILY 08/23/17 Multivitamin [Multivitamins] 1 each PO DAILY 08/23/17 Nitrofuran Macro [Macrodantin] 50 mg PO DAILY 08/23/17 Omeprazole 20 mg PO DAILY 08/23/17 Oxybutynin Chloride [Ditropan] 5 mg PO BID 08/23/17 Oxycodone HCl [Oxycontin] 20 mg PO BID 08/23/17 Pioglitazone HCl 15 mg PO DAILY 08/23/17 Rifaximin [Xifaxan] 550 mg PO DAILY 08/23/17 Vitamin B Complex [B Complex] 1 each PO DAILY 08/23/17 hydroCHLOROthiazide [Hydrochlorothiazide*] 12.5 mg PO DAILY 08/23/17 - Past Medical/Surgical History Diabetic: Yes -: Type 2 [id number] -: Nonalcoholic cirrhosis -: Hypothyroidism -: COPD -: Hypertension -: CKD -: Cholecystectomy -: Right BKA Psychosocial/ Personal History: Patient lives at home with her . - Family History Mother -: Cancer (Lymphoma) - Social History Smoking Status: Current every day smoker Smoking therapy provided: Yes (Nicotine patch) Alcohol use: No CD- Drugs: No Caffeine use: Yes Place of Residence: Home Review of Systems is unable to be obtained Physical Examination - Physical Exam General: Alert, In no apparent distress, Confused HEENT: Atraumatic, Normocephalic, PERRLA, Sclerae nonicteric Neck: Supple, 2+ carotid pulse no bruit, No LAD, Without JVD or thyroid abnormality Respiratory: Diminished, Crackles/rales Cardiovascular: No edema, Regular rate/rhythm, Normal S1 S2 Gastrointestinal: Normal bowel sounds, No tenderness Musculoskeletal: No tenderness Integumentary: No rashes Neurological: Normal tone, Sensation intact, Abnormal affect - Studies Laboratory Data (last 24 hrs) 09/10/21 21:50: PT 11.6, INR 1.05 09/10/21 21:50: WBC 8.6, Hgb 15.4 H, Hct 45.3 H, Plt Count 116 L 09/10/21 21:50: Sodium 143, Potassium 3.8, BUN 19 H, Creatinine 0.86, Glucose 139 H, Magnesium 1.9, Total Bilirubin 0.4, AST 20, ALT < 10 L, Alkaline Phosphatase 206 H Assessment and Plan - Problems (Diagnosis) (1) AMS (altered mental status) Current Visit: Yes Status: Acute Qualifiers: Altered mental status type: unspecified Qualified Code(s): R41.82 - Altered mental status, unspecified (2) Non-alcoholic cirrhosis Current Visit: Yes Status: Chronic (3) Type 2 diabetes mellitus Current Visit: Yes Status: Chronic Qualifiers: Diabetes mellitus ocean transportation intermediary insulin use: without ocean transportation intermediary use Diabetes mellitus complication status: with kidney complications Diabetes mellitus complication detail: with chronic kidney disease Chronic kidney disease stage: stage 2 (mild) Qualified Code(s): E11.22 - Type 2 diabetes mellitus with diabetic chronic kidney disease; N18.2 - Chronic kidney disease, stage 2 (mild) (4) COPD (chronic obstructive pulmonary disease) Current Visit: Yes Status: Chronic Qualifiers: COPD type: emphysema Emphysema type: unspecified Qualified Code(s): J43.9 - Emphysema, unspecified (5) Hypothyroidism Current Visit: Yes Status: Chronic Qualifiers: Hypothyroidism type: acquired Qualified Code(s): E03.9 - Hypothyroidism, unspecified (6) Hypertension Current Visit: Yes Status: Chronic Qualifiers: Hypertension type: primary hypertension Qualified Code(s): I10 - Essential (primary) hypertension - Plan -Source of altered mental status is unclear at this time. Patient is awake but not alert. Her eyes are open but do not follow movement nor does she respond to questions. She does respond to painful stimuli. -No signs of infection at this time. Vital signs stable, white blood cell count, lactic acid, and Pro-Mayur all WNL. Blood cultures drawn. -CT head suggested an old infarction. CTA revealed some stenosis. MRI stroke protocol and echo ordered for the morning. NPO -Troponin HS elevated at 227. CK-MB and CPK negative. trend troponin every 6 hours x2. EKG negative. -Urine negative for UTI. -Glucose within normal limits. ACHS Accu-Cheks with mild sliding scale insulin -Ammonia within normal limits. Will monitor daily and continue lactulose as needed. -Patient is a current every day smoker and does have COPD. She was saturating high 80s on room air. Nasal cannula as needed. Chest x-ray negative for acute process. Nicotine patch ordered. -Gentle IV hydration overnight -Continue home medications as appropriate -Vital signs stable. Will monitor on telemetry. Hydralazine as needed hypertension. -Ativan as needed agitation. -Lovenox for DVT prophylaxis Patient's daughter, Norma, can be reached at [phone] Discharge Plan: Home Plan to discharge in: Greater than 2 days - Advance Directives Does patient have a Living Will: No Does patient have a Durable POA for Healthcare: No - Code Status/Comfort Care Code Status Assessed: Yes (Full) Critical Care: No Time Spent Managing Pts Care (In Minutes): 70
[2021-09-11] MEDS ORDERED: MORPHINE 4 MG/ML SYR IV PRN (02:19)
[2021-09-11] MEDS ORDERED: ONDANSETRON 4 MG/2 ML VIAL IV PRN (02:19)
[2021-09-11] MEDS ORDERED: IPRATROPIUM BROM 0.5MG/2.5ML NEB PRN (02:19)
[2021-09-11] MEDS ORDERED: ALBUTEROL 2.5 MG/3 ML NEB SOL NEB PRN (02:19)
[2021-09-11] MEDS ORDERED: ACETAMINOPHEN 650MG/RECT SUPP PR PRN (02:19)
[2021-09-11] MEDS: NA CHLORIDE 0.9% 1,000 ML IV SCH ×2 (02:42→16:50)
[2021-09-11 03:41] VITALS: BMI 29.1
[2021-09-11 03:54] LABS: Thyroid Stimulating Hormone 0.102 uIU/mL (0.360-3.740)
[2021-09-11 03:55] LABS: Troponin High Sensitivity 298.3 pg/mL (<58.9)
[2021-09-11] MEDS: INSULIN -REGULAR HUMAN 50 UNIT/0.5 ML ML SQ SCH ×4 (07:30→21:00)
[2021-09-11] MEDS ORDERED: NICOTINE 21 MG/PAT TD ONE (08:35)
[2021-09-11] MEDS ORDERED: ENOXAPARIN 40 MG/0.4 ML SQ ONE (08:35)
[2021-09-11] MEDS ORDERED: FOLIC ACID 5 MG/ML VIAL ONE (08:36)
[2021-09-11] MEDS ORDERED: NA CHLORIDE 0.9% 50 ML ONE (08:37)
[2021-09-11] MEDS: NICOTINE 21 MG/PAT TD SCH (09:00)
[2021-09-11] MEDS ORDERED: ENOXAPARIN 40 MG/0.4 ML SQ SCH (09:00)
[2021-09-11] MEDS: FOLIC ACID 1 MG in NA CHLORIDE 0.9% 50 ML IV SCH (09:00)
[2021-09-11] MEDS ORDERED: ONDANSETRON 4 MG/2 ML VIAL ONE (09:08)
[2021-09-11] MEDS ORDERED: LORazepam 2 MG/ML VIAL ONE (10:50)
[2021-09-11] MEDS: LORazepam 2 MG/ML VIAL IV PRN (10:54)
[2021-09-11] MEDS ORDERED: HALOPERIDOL LACT 5 MG/ML INJ IV ONE (11:10)
[2021-09-11 12:19] LABS: Arterial Blood Carboxyhemoglob 1.9 % (0-1.5); Blood Gas Oxyhemoglobin 91.9 % (94-97); Blood O2 Saturation 94.7 % (92-98.5)
--- NOTE | 2021-09-11 12:20 | RAD REPORT ---
EXAM DESCRIPTION: 1. CTA of the head with contrast. 2. CTA of the neck with contrast. CLINICAL HISTORY: 61 years, Female, Head trauma, abnormal mental status COMPARISON: None. TECHNIQUE: Axial CTA images of the head and neck obtained following the uncomplicated intravenous ad ministration of iodinated contrast. 3-D/MIP reformatted images available. This exam was performed acc ording to our departmental dose-optimization program, which includes automated exposure control, adju stment of the mA and/or kV according to patient size and/or use of iterative reconstruction technique . FINDINGS: CTA head: In the anterior circulation, the intracranial internal carotid arteries have normal course and calibe r. Mild nonflow limiting atherosclerotic plaque at the paraclinoid intracranial internal carotid kyle charbel. The internal carotid arteries bifurcate into widely patent A1 and M1 segments of the anterior a nd middle cerebral arteries respectively. No evidence of flow-limiting stenosis, aneurysm, occlusion, or dissection in the anterior circulation. The anterior communicating artery is patent. In the posterior circulation, the intracranial vertebral arteries combine to form a widely patent bas ilar artery. The basilar artery bifurcates into widely patent P1 segments of the posterior cerebral a rtery. No evidence of stenosis, aneurysm, occlusion, or dissection in the posterior circulation. No definite acute intracranial abnormality identified. No acute abnormality of the osseous calvarium. Paranasal sinuses and mastoid air cells are well aerated. CTA NECK: The aortic arch is not visualized. The visualized proximal great vessels are patent. The right common carotid artery is widely patent and bifurcates into patent internal and external car otid arteries. Mild nonflow limiting atherosclerotic plaque. 0% stenosis by NASCET criteria. No evide nce of occlusion or dissection. The left common carotid artery is widely patent and bifurcates into patent internal and external deluca tid arteries. 65% stenosis by NASCET criteria. There is a second approximately 20% tandem stenosis in the proximal left ICA on the basis of calcified atherosclerotic plaque. No evidence of occlusion or dissection. The cervical vertebral arteries are widely patent throughout their course. No evidence of occlusion, stenosis, or dissection. No definite acute abnormalities in the neck soft tissues. No apical pneumothorax. No acute osseous ab normalities. IMPRESSION: 1. No evidence of occlusion, flow-limiting stenosis, or aneurysm in the intracranial a rterial circulation. 2. 65% stenosis of the proximal left cervical ICA by NASCET criteria. 3. There is a second approximately 20% tandem stenosis in the proximal left ICA on the basis of aranza cified atherosclerotic plaque. Electronically signed by: Davide Melendez 09/11/2021 12:09 AM CDT Due to temporary technical issues with the PACS/Fluency reporting system, reports are being signed by the in house radiologist without review as a courtesy to ensure prompt reporting. The interpreting r adiologist is fully responsible for the content of the report.
--- NOTE | 2021-09-11 17:00 | P.PN ---
Date of Service: 09/11/21 Patient responded by verbal once to my greeting and then will not talk again. She was keeping her eyes shut during my interaction. support technician also stated patient was screaming when they put her in the MRI tube. She was given a dose of IV Haldol which was not enough to calm her. The MRI of the brain could not be completed. Noted patient has been on a chronic Reglan therapy and therefore at risk for movement disorders and tardive dyskinesia. Met family by the bedside who endorsed patient has long history of depression and that her depression medications were recently scaled down. She is taking only citalopram at this time. Work-up has been negative so far except mildly elevated troponin which increased slightly. EKG unremarkable. Head CT negative. ABG is unremarkable. History of nonalcoholic liver cirrhosis. Ammonia level is normal. 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 Need to rule out acute CVA. We will attempt another MRI of the brain tomorrow. She will be given anxiolytics prior to the MRI. We will start full dose Lovenox and continue to trend troponin. No evidence of infection. Hold Reglan. Consider psych consultation if available.
[2021-09-11] MEDS: ENOXAPARIN 80 MG/0.8 ML SQ SCH (20:38)
[2021-09-12 06:17] LABS: Hematocrit 42.6 % (36.0-45.0); Lymphocytes % 20.6 % (15.3-44.8); MPV 11.8 fL (7.6-11.3); RBC Red Blood Cell Count 4.86 M/uL (3.86-4.86)
[2021-09-12 06:21] LABS: AST/SGOT 27 U/L (15-37); Albumin 2.7 g/dL (3.4-5.0); Alkaline Phosphatase 174 U/L (45-117); BUN Blood Urea Nitrogen 18 mg/dL (7-18); Bicarbonate 26 mmol/L (21-32); Bilirubin Total 0.4 mg/dL (0.2-1.0); Glucose Level 117 mg/dL (74-106); Magnesium 1.7 mg/dL (1.8-2.4); Phosphorus 2.6 mg/dL (2.5-4.9); Potassium 3.3 mmol/L (3.5-5.1); Protein, Total 7.9 g/dL (6.4-8.2); Sodium Level 144 mmol/L (136-145)
[2021-09-12 06:23] LABS: ALT/SGPT < 10 U/L (12-78)
[2021-09-12] MEDS: NA CHLORIDE 0.9% 1,000 ML IV SCH ×2 (06:55→18:18)
[2021-09-12] MEDS: INSULIN -REGULAR HUMAN 50 UNIT/0.5 ML ML SQ SCH ×4 (07:30→20:56)
[2021-09-12] MEDS ORDERED: LORazepam 2 MG/ML VIAL IV ONE ×2 (08:47→10:26)
[2021-09-12] MEDS: FOLIC ACID 1 MG in NA CHLORIDE 0.9% 50 ML IV SCH (08:53)
[2021-09-12] MEDS: ASPIRIN EC 81 MG TAB PO SCH (08:54)
[2021-09-12] MEDS: NICOTINE 21 MG/PAT TD SCH (08:54)
[2021-09-12] MEDS: ENOXAPARIN 80 MG/0.8 ML SQ SCH ×2 (08:54→20:56)
[2021-09-12] MEDS: HYDRALAZINE HCL 20 MG/ML VIAL IV PRN ×2 (08:55→15:43)
--- NOTE | 2021-09-12 11:30 | RAD REPORT ---
EXAM DESCRIPTION: MRI - Brain W/Wo Cont - 09/12/2021 10:57 am CLINICAL HISTORY: ams, stroke r/o COMPARISON: Head angio dated 09/10/2021; Head C Spine Mpr Wo Con dated 09/10/2021 TECHNIQUE: Sagittal and axial T1-weighted images were obtained. Axial PD/heavily T2-weighted and T2- FLAIR images were obtained along with axial DWI/ADC mapping sequences. Coronal heavily T2 weighted s equence obtained. Sagittal T1 gradient echo sequencing performed. Axial and coronal post-contrast T1- weighted images were also obtained. A 20 ml Multihance contrast following utilized. FINDINGS: Exam has limitation due to excessive motion. Multiple acquisitions had to be repeated. No acute infarction changes are present. No suspicious mass present. There is no edema or shift of mi dline structures seen. Approximately 2 centimeter area of abnormal signal intensity is present in the right cerebellum. This is T1 hypointense and T2 hypointense. A small focus of T1 hyperintense signal is present within this mass on precontrast T1 weighted imaging. On the postcontrast sequencing no ad ditional area of enhancement or hyperintense signal present. Overall no abnormal brain parenchymal or dural enhancement. Patient has minimal chronic ischemic foci in the cerebral white matter. No signif icant volume loss seen. Ventricles are normal. Samuel matter - white matter differentiation is maintain ed. 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 This ce rebellum finding may be the site of prior infection. A surgical access site is not evident. Signal voids are seen as a normal finding in the major intracranial vessels. Post-contrast images show normal enhancement. No dural thickening. No acute mastoid air cell or paranasal sinus finding. No globe or orbital content abnormality seen. IMPRESSION: Motion degraded study shows no acute or subacute infarction change. Signal abnormality in the right cerebellum does not have an enhancement component. This is probably a n area of old infarction or may represent the site of the historically stated infectious mass removal . Acute or active process at this site is not suspected.
--- NOTE | 2021-09-12 13:43 | P.PN ---
Subjective Date of Service: 09/12/21 Primary Care Provider: James [place]) Chief Complaint: AMS Patient is more verbal today. She appear lethargic. Physical Examination - Vital Signs Temperature: 97.7 F Blood Pressure: 189/81 Pulse: 99 Respirations: 16 Pulse Ox (%): 93 - Physical Exam General: In no apparent distress, Other (Lethargic) HEENT: Mucous membr. moist/pink Neck: Supple, JVD not distended Respiratory: Clear to auscultation bilaterally, Normal air movement Cardiovascular: No edema, Regular rate/rhythm, Normal S1 S2, No murmurs Capillary refill: <2 Seconds Gastrointestinal: Normal bowel sounds, Soft and benign, Non-distended, No tenderness Musculoskeletal: No swelling, No tenderness Integumentary: No rashes, No cyanosis Neurological: Normal strength at 5/5 x4 extr, Other (Lethargic, psychomotor retardation.) - Studies Microbiology Data (last 24 hrs): 09/10/21 21:50 Blood - Blood Anaerobic Blood Culture - Final 09/10/21 19:35 Blood - Blood Anaerobic Blood Culture - Final Assessment And Plan - Current Problems (Diagnosis) (1) History of CVA (cerebrovascular accident) Current Visit: Yes Status: Acute (2) AMS (altered mental status) Current Visit: Yes Status: Acute Qualifiers: Altered mental status type: unspecified Qualified Code(s): R41.82 - Altered mental status, unspecified (3) COPD (chronic obstructive pulmonary disease) Current Visit: Yes Status: Chronic Qualifiers: COPD type: emphysema Emphysema type: unspecified Qualified Code(s): J43.9 - Emphysema, unspecified (4) Hypertension Current Visit: Yes Status: Chronic Qualifiers: Hypertension type: primary hypertension Qualified Code(s): I10 - Essential (primary) hypertension (5) Hypothyroidism Current Visit: Yes Status: Chronic Qualifiers: Hypothyroidism type: acquired Qualified Code(s): E03.9 - Hypothyroidism, unspecified (6) Non-alcoholic cirrhosis Current Visit: Yes Status: Chronic (7) Type 2 diabetes mellitus Current Visit: Yes Status: Chronic Qualifiers: Diabetes mellitus roasterman insulin use: without roasterman use Diabetes mellitus complication status: with kidney complications Diabetes mellitus complication detail: with chronic kidney disease Chronic kidney disease stage: stage 2 (mild) Qualified Code(s): E11.22 - Type 2 diabetes mellitus with diabetic chronic kidney disease; N18.2 - Chronic kidney disease, stage 2 (mild) - Plan MRI of the brain results reviewed. Patient is more verbal today. Seen by psychiatry-catatonia suspected. Patient with a history of depression on Celexa and bupropion. Bupropion XL dose increased. Ativan as needed. Avoid antipsychotics. Neurology consulted. Case discussed with Dr. Alfonso. Normal ammonia level. Doubt hepatic encephalopathy contributing to his symptoms. Neurochecks. Continue rifaximin and lactulose once more awake. Cardiology consulted for elevated troponin. Patient is on full dose Lovenox. Aspirin 81 mg daily. Obtain echocardiogram. Resume diet once more awake.
[2021-09-12] MEDS ORDERED: HOME MED 1 EA UNK (Pregabalin [Pregabalin] 100 MG Capsule) PO SCH (14:00)
[2021-09-12] MEDS ORDERED: ursodioL 300 MG CAP PO SCH (14:00)
[2021-09-12] MEDS: METHYLPRED NA SUC 1,000 MG in NA CHLORIDE 0.9% 100 ML IV SCH (15:18)
[2021-09-12] MEDS: PREGABALIN 50 MG CAP PO SCH ×2 (15:19→20:54)
[2021-09-12] MEDS: AMLODIPINE 10 MG TAB PO SCH (18:15)
[2021-09-12] MEDS ORDERED: METOPROLOL TAR 50 MG TAB PO ONE (19:50)
[2021-09-12] MEDS: LACTULOSE 20 GM/30 ML UCUP PO SCH (20:53)
[2021-09-12] MEDS: OXYBUTYNIN CHLORIDE 5 MG TAB PO SCH (20:54)
[2021-09-12] MEDS: Rifaximin 550 MG Tab PO SCH (20:54)
[2021-09-12] MEDS: RIFAXIMIN 550 MG PO SCH (20:56)
[2021-09-12] MEDS ORDERED: LACTULOSE 10 GM PO SCH (21:00)
--- NOTE | 2021-09-12 21:51 | CON ---
Consultation called because of altered mental status. History Of Present Illness: Ms. Valverde is a 61-year-old right-handed patient with multiple medical problems including nonalcoholic liver cirrhosis, longstanding hypothyroidism, hypertension, c hronic obstructive pulmonary disease, diabetes type 2, and recurrent urinary tract infections along w ith episodes of recurrent disorientation, confusion since 2019. The patient's daughters were in the room and her and they provided information. Daughter said she since 2019 has had episodes of disorientation, confusion, and inability to communicate and that may last hours to a few days and th en, she would apparently go back to baseline. She has a chronic right wnxks-cdr-nbwy amputation and has not stood and ambulated for perhaps 20 years because of the amputation. The reason for the [facility] admission today was she was found poorly responsive in her urine and feces and was down for an unkn own length of time. 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 Otherwise, the brain MRI which was done l ater, which again confirmed a cerebellar stroke, did show mild small-vessel ischemic disease in the w bibi matter. The patient did not have a pattern of cortical atrophy in the temporal lobes, frontal l obes, or other regions aside from the strokes in the cerebellum. Her blood work was remarkable for a very low TSH of 0.102 and elevated free T4 of 1.68. Procalcitonin of less than 0.05 and lactic acid of 0.8 were normal and essentially ruled out sepsis. White count was normal at 9.7, hemoglobin and hematocrit unremarkable. INR unremarkable. Arterial blood gas essentially showed slightly low oxyge n level of 72.6, otherwise normal arterial blood gas. Creatinine normal at 0.86. AST normal at 20, ALT unremarkable at less than 10, alkaline phosphatase is slightly elevated at 206. Cholesterol pane l is essentially unremarkable. Troponin I was elevated at 298.3. The patient again was found down f or some unknown period of time and likely has a mild degree of rhabdo, although creatine kinase is no rmal. She does have the thyroglobulin antibody and thyroid peroxidase antibody is pending. COVID-19 test is negative. Influenza testing negative. Her chest x-ray showed no evidence of acute cardiopu lmonary abnormalities. She does have prominent bullous emphysema with pulmonary scarring, but again lungs are clear of acute infiltrate. Past Medical History: As noted. Allergies: LATEX. Medications: Vitamin C 500 mg daily, aspirin 81 mg daily, vitamin D 1000 International Units daily, citalopram 30 mg daily, Lantus daily, Synthroid 88 mcg daily, Reglan 5 mg twice daily, Singulair 100 mg daily, multivitamin daily, Macrodantin 50 mg daily, omeprazole 20 mg daily, Ditropan 5 mg twice da doris, OxyContin 20 mg twice daily, B-complex daily, hydrochlorothiazide 12.5 mg daily. Past Surgical History: Right below-knee amputation, cholecystectomy. Social History: Lives with and 2 daughters are involved in her care. Family History: Positive for lymphoma in mother. Social History: The patient smokes cigarettes daily and did have a nicotine patch. Uses caffeinated beverages. Does not drink alcohol or use illegal drugs. Review of Systems: Unable to get a reliable review of systems. The patient is not responding with verbal responses. Sh e did not follow simple commands, but did open the eyes and fairly minimal stimulation of the sternal region and did move the arms and legs spontaneously and equally given a right mrgti-yta-atwg amputat ion that is, by the way, well-healed. Physical Examination: Vital Signs: Blood pressure 189/81, respiratory rate 16 to 18, temperature 97.7, pulse 80 to 99, oxy gen saturation 93% on room air. General: Ms. Valverde is resting in bed. HEENT: She is normocephalic, atraumatic. Sclerae anicteric. Oropharynx is moist. Neck: Supple. Chest: Clear. Heart: Regular. Extremities: On the right, fcuzc-uot-qtzw amputation. On the left, no significant edema or cyanosis . Neurological: She is somewhat sedated. She did receive Ativan about 5 hours ago for MRI of the brai n, however, she alerts well with slight stimulation of the sternum, opens the eyes, tracks, and she h as purposeful movements of the arms and the left leg along with the right stump below the knee, which she can keep flexed and she moves it around fairly well. Cranial nerves, she show poor dentition, b ut the face appears symmetric. Tone appears normal. Unable to assess coordination and gait. Laboratory Studies: As noted, complete blood count with differential is essentially unremarkable. C oagulation panel unremarkable. Arterial blood gas slightly low oxygen level of 72.6. Chemistries, g lucose 139. Liver function studies as noted shows elevated alkaline phosphatase of 206, otherwise un remarkable and magnesium normal. Urinalysis is unremarkable. Assessment: Ms. Valverde is a 61-year-old patient, who has had multiple episodes of confusion and disor ientation. The family actually did say some mild shaking occur and these episodes resolve and she ap pears to go back to her baseline, episodes may last several days and they have been ongoing since 201 9. She apparently has thyroid dysfunction and has been on thyroid replacement. Perhaps, it is the r jerry for her abnormal thyroid panel, however, her routine EEG did show biphasic and triphasic waves involving the frontal, temporal, and central regions bilaterally and she did not have a well expresse d posterior dominant rhythm. 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 Given the abse nce of acute stroke, especially in the cortical regions and frontal and parietal or temporal area and absence of an infectious etiology for her condition that seems to repeat itself. Autoimmune thyroid itis and many other autoimmune encephalopathies may be considered. Plan: 1.Follow up antiperoxidase antibody and autoimmune encephalopathy studies, these will inc lude an antibody panel. 2.Treat with Solu-Medrol 1 g daily for 3 days. 3.She may benefit from aggressive speech therapy along with physical and occupational therapy. She may be a candidate for inpatient rehabilitation. HORTENCIA/EMMANUEL Voice ID: [id number] Report ID: [id number]
--- NOTE | 2021-09-13 00:06 | CON ---
Date of Consultation: 09/12/2021 Reason For Consultation: Elevated troponin. History Of Present Illness: This is a 61-year-old female with history of hypothyroidism, hypertensio n, COPD, diabetes, recurrent UTIs who presented to the emergency room with altered mental status. Sh luis angel has liver cirrhosis as well. Routine blood work showed elevated troponin and hence I was consulted . The patient is a very poor historian, confused and not able to get any history from her. Past Medical History: As outlined above in the HPI. Medications: Refer to reconciliation sheet for detailed list. Allergies: LATEX. Family History: No premature coronary artery disease or cancer. Social History: She is a smoker. Does not drink or use any drugs. Review of Systems: All systems reviewed and were negative except as mentioned in HPI. Physical Examination: Vital Signs: Reviewed. Head and Neck: Pupils are equal, reactive to light. Intact eye movements. No JVD. No cervical lym phadenopathy. Neck supple. Thyroid is not enlarged. Lungs: Clear to auscultation bilaterally. No rhonchi, rales, or crackles. No accessory muscle use. Heart: Regular with loud aortic systolic ejection murmur. Abdomen: Soft, nontender. Bowel sounds positive. No organomegaly. No masses or hernia. No rigidi ty or rebound. Extremities: No clubbing or cyanosis. Intact pulses. Skin: No rash was noted. Neuro: Alert, awake. No acute focal deficits appreciated and she is confused. Investigations: Her hemoglobin is 14.2. Creatinine is 0.76. Troponin last checked was 882. Assessment And Recommendation: 1.Aortic valve stenosis and has a very loud murmur. Echo was reviewed by myself and she has severe aortic valve stenosis. This valve needs to be replaced. We will discuss the option with her on an o utpatient basis. 2.Elevated troponin suggestive of possible non-ST elevation myocardial infarction versus demand isch emia and recommend better blood pressure control and trend 1 more troponin please. On echo, there ar e no wall motion abnormalities. The patient will need coronary angiogram. We will plan on it early next week. Meanwhile, placed the patient on baby aspirin and we will wait until her mental status cl ears. SR/MODL Voice ID: [id number] Report ID: [id number]
[2021-09-13 05:42] LABS: Absolute Lymphocytes (CBC) 1.1 K/uL (0.7-4.9); Lymphocytes % 18.2 % (15.3-44.8); MPV 11.2 fL (7.6-11.3); RBC Red Blood Cell Count 5.16 M/uL (3.86-4.86)
[2021-09-13] MEDS: LEVOTHYROXINE SOD 0.088 MG TAB PO SCH (05:55)
[2021-09-13] MEDS: NA CHLORIDE 0.9% 1,000 ML IV SCH (05:55)
[2021-09-13 07:11] LABS: Albumin 2.8 g/dL (3.4-5.0); Bilirubin Total 0.4 mg/dL (0.2-1.0); Potassium 3.7 mmol/L (3.5-5.1); Protein, Total 8.6 g/dL (6.4-8.2)
[2021-09-13 08:06] LABS: Blood Morphology Comment NOT SEEN (NOT SEEN); Platelet Estimate DECR; Platelets, Giant PRESENT; White Blood Cell Scan OK (OK)
[2021-09-13] MEDS: INSULIN -REGULAR HUMAN 50 UNIT/0.5 ML ML SQ SCH ×4 (08:30→21:27)
[2021-09-13] MEDS: PANTOPRAZOLE 40MG TABLET PO SCH (08:30)
[2021-09-13] MEDS: ENOXAPARIN 80 MG/0.8 ML SQ SCH ×2 (08:30→20:11)
[2021-09-13] MEDS: VITAMIN B COMPLEX 1 CAP PO SCH (08:31)
[2021-09-13] MEDS: VITAMIN D 1000 UNIT TAB PO SCH (08:31)
[2021-09-13] MEDS: LACTULOSE 20 GM/30 ML UCUP PO SCH ×2 (08:31→20:11)
[2021-09-13] MEDS: MULTIVITAMIN TAB PO SCH (08:31)
[2021-09-13] MEDS: OXYBUTYNIN CHLORIDE 5 MG TAB PO SCH ×2 (08:32→20:08)
[2021-09-13] MEDS: MONTELUKAST 10 MG TAB PO SCH (08:32)
[2021-09-13] MEDS: AMLODIPINE 10 MG TAB PO SCH (08:32)
[2021-09-13] MEDS: BUPROPION HCL XL 150 MG TAB PO SCH (08:32)
[2021-09-13] MEDS: ASCORBIC ACID 500 MG TABLET PO SCH (08:33)
[2021-09-13] MEDS: PREGABALIN 50 MG CAP PO SCH ×3 (08:33→20:08)
[2021-09-13] MEDS: lisinopriL 5 MG TAB PO SCH (08:33)
[2021-09-13] MEDS: NICOTINE 21 MG/PAT TD SCH (08:34)
[2021-09-13] MEDS: ASPIRIN EC 81 MG TAB PO SCH (08:34)
[2021-09-13] MEDS: Rifaximin 550 MG Tab PO SCH ×2 (08:35→20:09)
[2021-09-13] MEDS ORDERED: PRAZOSIN HCL 1 MG CAP PO SCH (09:00)
[2021-09-13] MEDS ORDERED: HOME MED 1 EA UNK (Citalopram Hydrobromide [Citalopram Hbr] 20 MG Tablet) PO SCH (09:00)
[2021-09-13] MEDS ORDERED: HOME MED 1 EA UNK (Multivitamin [Multivitamins] Capsule) PO SCH (09:00)
[2021-09-13] MEDS: RIFAXIMIN 550 MG PO SCH ×2 (09:00→20:11)
[2021-09-13] MEDS ORDERED: HOME MED 1 EA UNK (Vitamin B Complex [B Complex] Tablet) PO SCH (09:00)
[2021-09-13] MEDS ORDERED: HOME MED 1 EA UNK (Omeprazole [Omeprazole] 20 MG Capsule.Dr) PO SCH (09:00)
[2021-09-13] MEDS ORDERED: CITALOPRAM 10 MG TABLET PO SCH (09:00)
[2021-09-13] MEDS: METHYLPRED NA SUC 1,000 MG in NA CHLORIDE 0.9% 100 ML IV SCH (09:10)
[2021-09-13] MEDS: FOLIC ACID 1 MG in NA CHLORIDE 0.9% 50 ML IV SCH (09:10)
[2021-09-13] MEDS: MORPHINE *EXTENDED RELEASE* 15 MG TAB PO SCH ×2 (12:45→20:09)
--- NOTE | 2021-09-13 14:33 | P.PN ---
Subjective Date of Service: 09/13/21 Primary Care Provider: James Kelly ([place]) Chief Complaint: AMS Patient is awake and alert and back to baseline. Alert and oriented x4. She is conversing meaningfully, tolerating diet. Physical Examination - Vital Signs Temperature: 97.3 F Blood Pressure: 113/52 Pulse: 80 Respirations: 16 Pulse Ox (%): 96 - Physical Exam General: Alert, In no apparent distress, Oriented x3, Obese HEENT: Mucous membr. moist/pink Neck: Supple, JVD not distended Respiratory: Clear to auscultation bilaterally, Normal air movement Cardiovascular: No edema, Regular rate/rhythm, Normal S1 S2 Gastrointestinal: Normal bowel sounds, Soft and benign, Non-distended, No tenderness Musculoskeletal: No swelling Integumentary: No rashes, No erythema Neurological: Normal speech, Normal strength at 5/5 x4 extr, Cranial nerves 3-12 intact Assessment And Plan - Current Problems (Diagnosis) (1) History of CVA (cerebrovascular accident) Current Visit: Yes Status: Acute (2) AMS (altered mental status) Current Visit: Yes Status: Acute Qualifiers: Altered mental status type: unspecified Qualified Code(s): R41.82 - Altered mental status, unspecified (3) COPD (chronic obstructive pulmonary disease) Current Visit: Yes Status: Chronic Qualifiers: COPD type: emphysema Emphysema type: unspecified Qualified Code(s): J43.9 - Emphysema, unspecified (4) Hypertension Current Visit: Yes Status: Chronic Qualifiers: Hypertension type: primary hypertension Qualified Code(s): I10 - Essential (primary) hypertension (5) Hypothyroidism Current Visit: Yes Status: Chronic Qualifiers: Hypothyroidism type: acquired Qualified Code(s): E03.9 - Hypothyroidism, unspecified (6) Non-alcoholic cirrhosis Current Visit: Yes Status: Chronic (7) Type 2 diabetes mellitus Current Visit: Yes Status: Chronic Qualifiers: Diabetes mellitus watermaster insulin use: without skilled nursing use Diabetes mellitus complication status: with kidney complications Diabetes mellitus complication detail: with chronic kidney disease Chronic kidney disease stage: stage 2 (mild) Qualified Code(s): E11.22 - Type 2 diabetes mellitus with diabetic chronic kidney disease; N18.2 - Chronic kidney disease, stage 2 (mild) - Plan MRI of the brain results reviewed. Mental status is back to baseline. Patient is alert and oriented x4. Seen by psychiatry-catatonia suspected. Patient with a history of depression on Celexa and bupropion. Bupropion XL dose increased. Ativan as needed. Avoid antipsychotics. Neurology-Dr. Alfonso also seen patient. Patient EEG with nonspecific spikes suggesting encephalopathy. Dr. Alfonso suspect a form of autoimmune disorder related to En thyroiditis given her abnormal TFT. Anti-TPO ordered. Patient started on high-dose bfsfzfop-Ommx-Sjxdmp 1 g daily. She has shown rapid improvement in mental status since yesterday. Neurology considering LP. Continue rifaximin and lactulose once more awake. Cardiology input appreciated. Dr. De León planning for cardiac catheterization on Wednesday. Continue full dose Lovenox. Aspirin 81 mg daily. Echocardiogram is pending. Diet resume. Patient's other home medications resumed. Insulin sliding scale for glucose management.
--- NOTE | 2021-09-13 19:54 | PN ---
Date of Progress Note: 09/13/2021 Subjective: Seen by bedside. She is doing well. No new complaints. She is fully active today and fully oriented x3. Review of Systems: No chest pain, shortness of breath, orthopnea, cough. No nausea, vomiting, diarrhea. All other syst ems reviewed and are negative. Physical Examination: Vital Signs: Reviewed. Head and Neck: Pupils are equal, reactive to light. Intact eye movements. No JVD. No cervical lym phadenopathy. Neck is supple. Thyroid is not enlarged. Lungs: Clear to auscultation bilaterally. No rhonchi, rales, or crackles. No accessory muscle use. Heart: Regular rate and rhythm. There is aortic systolic ejection murmur. Abdomen: Soft, nontender. Bowel sounds positive. No organomegaly. No masses or hernia. No rigidi ty or rebound. Extremities: No clubbing or cyanosis. Neurologic: Alert, awake, oriented x3. No gross deficits. Investigations: Labs were reviewed. No further troponins were checked. Assessment And Recommendation: 1.Severe aortic valve stenosis. The patient was fully awake and oriented x3, and I had discussion w ith her and her daughter. She needs this valve replaced. We will start the process for transcathete r aortic valve replacement, which will be done as an outpatient. 2.Elevated troponin, could be due to demand ischemia versus acute coronary syndrome. Agree with Alec enox and aspirin, and we will plan for coronary angiogram as part of the workup for the aortic valve replacement plus due to the elevated troponin. Thank you for the consult. /EMMANUEL Voice ID: [id number] Report ID: [id number]
[2021-09-13] MEDS: LORazepam 2 MG/ML VIAL IV PRN (20:08)
[2021-09-14] MEDS: NA CHLORIDE 0.9% 1,000 ML IV SCH ×3 (00:57→15:46)
[2021-09-14 06:46] LABS: Absolute Lymphocytes (CBC) 1.2 K/uL (0.7-4.9); Lymphocytes % 9.4 % (15.3-44.8); MPV 11.7 fL (7.6-11.3)
[2021-09-14 07:08] LABS: Albumin 2.7 g/dL (3.4-5.0); Bilirubin Total 0.3 mg/dL (0.2-1.0); Potassium 3.4 mmol/L (3.5-5.1); Protein, Total 7.8 g/dL (6.4-8.2)
[2021-09-14] MEDS: LEVOTHYROXINE SOD 0.088 MG TAB PO SCH (07:09)
[2021-09-14] MEDS: INSULIN -REGULAR HUMAN 50 UNIT/0.5 ML ML SQ SCH ×4 (07:30→21:00)
[2021-09-14 08:31] LABS: Platelet Estimate DECR; White Blood Cell Scan OK (OK)
[2021-09-14 08:32] LABS: Blood Morphology Comment NOT SEEN (NOT SEEN); Platelets, Giant FEW PRESENT
[2021-09-14] MEDS: METHYLPRED NA SUC 1,000 MG in NA CHLORIDE 0.9% 100 ML IV SCH (08:51)
[2021-09-14] MEDS: NICOTINE 21 MG/PAT TD SCH (08:51)
[2021-09-14] MEDS: MULTIVITAMIN TAB PO SCH (08:52)
[2021-09-14] MEDS: AMLODIPINE 10 MG TAB PO SCH (08:52)
[2021-09-14] MEDS: BUPROPION HCL XL 150 MG TAB PO SCH (08:52)
[2021-09-14] MEDS: PREGABALIN 50 MG CAP PO SCH ×3 (08:52→21:13)
[2021-09-14] MEDS: VITAMIN D 1000 UNIT TAB PO SCH (08:52)
[2021-09-14] MEDS: ASCORBIC ACID 500 MG TABLET PO SCH (08:52)
[2021-09-14] MEDS: hydroCHLOROthiazide 12.5 MG CAP PO SCH (08:52)
[2021-09-14] MEDS: MONTELUKAST 10 MG TAB PO SCH (08:52)
[2021-09-14] MEDS: VITAMIN B COMPLEX 1 CAP PO SCH (08:52)
[2021-09-14] MEDS: ENOXAPARIN 80 MG/0.8 ML SQ SCH ×2 (08:53→21:12)
[2021-09-14] MEDS: lisinopriL 5 MG TAB PO SCH (08:53)
[2021-09-14] MEDS: OXYBUTYNIN CHLORIDE 5 MG TAB PO SCH ×2 (08:53→21:13)
[2021-09-14] MEDS: ASPIRIN EC 81 MG TAB PO SCH (08:53)
[2021-09-14] MEDS: RIFAXIMIN 550 MG PO SCH ×2 (08:55→21:00)
[2021-09-14] MEDS: Rifaximin 550 MG Tab PO SCH (08:55)
[2021-09-14] MEDS: LACTULOSE 20 GM/30 ML UCUP PO SCH ×2 (08:55→21:00)
[2021-09-14] MEDS: PANTOPRAZOLE 40MG TABLET PO SCH (09:04)
[2021-09-14] MEDS: FOLIC ACID 1 MG in NA CHLORIDE 0.9% 50 ML IV SCH (09:04)
[2021-09-14] MEDS: MORPHINE *EXTENDED RELEASE* 15 MG TAB PO SCH ×2 (09:04→21:13)
--- NOTE | 2021-09-14 13:13 | P.PN ---
Subjective Date of Service: 09/14/21 Primary Care Provider: James Kelly ([place]) Chief Complaint: AMS Patient has no new complain. She remains alert and oriented. Physical Examination - Vital Signs Temperature: 97.0 F Blood Pressure: 125/53 Pulse: 64 Respirations: 16 Pulse Ox (%): 95 Assessment And Plan - Current Problems (Diagnosis) (1) History of CVA (cerebrovascular accident) Current Visit: Yes Status: Acute (2) AMS (altered mental status) Current Visit: Yes Status: Acute Qualifiers: Altered mental status type: unspecified Qualified Code(s): R41.82 - Altered mental status, unspecified (3) COPD (chronic obstructive pulmonary disease) Current Visit: Yes Status: Chronic Qualifiers: COPD type: emphysema Emphysema type: unspecified Qualified Code(s): J43.9 - Emphysema, unspecified (4) Hypertension Current Visit: Yes Status: Chronic Qualifiers: Hypertension type: primary hypertension Qualified Code(s): I10 - Essential (primary) hypertension (5) Hypothyroidism Current Visit: Yes Status: Chronic Qualifiers: Hypothyroidism type: acquired Qualified Code(s): E03.9 - Hypothyroidism, unspecified (6) Non-alcoholic cirrhosis Current Visit: Yes Status: Chronic (7) Type 2 diabetes mellitus Current Visit: Yes Status: Chronic Qualifiers: Diabetes mellitus senior living insulin use: without abstract checker use Diabetes mellitus complication status: with kidney complications Diabetes mellitus complication detail: with chronic kidney disease Chronic kidney disease stage: stage 2 (mild) Qualified Code(s): E11.22 - Type 2 diabetes mellitus with diabetic chronic kidney disease; N18.2 - Chronic kidney disease, stage 2 (mild) - Plan Mental status is at baseline. Patient is alert and oriented x4. Seen by psychiatry-catatonia suspected. Patient with a history of depression on Celexa and bupropion. Bupropion XL dose increased. Ativan as needed. Avoid antipsychotics. Neurology-Dr. Alfonso also seen patient. Patient EEG with nonspecific spikes suggesting encephalopathy. Dr. Alfonso suspect a form of autoimmune disorder related to En thyroiditis given her abnormal TFT. Anti-TPO ordered. Patient started on high-dose xospctqf-Zhvf-Hwxfym 1 g daily for 3 days. She has shown rapid improvement in mental status. Neurology considering LP pending anti-TPO result. Continue rifaximin and lactulose once more awake. Cardiology input appreciated. Echocardiogram showing aortic stenosis. Dr. De León planning for cardiac catheterization on Wednesday followed by TAVR as outpatient. Continue full dose Lovenox. Aspirin 81 mg daily. Diet as tolerated. Insulin sliding scale for glucose management. Start Lantus insulin. Watch for steroid-induced hyperglycemia.
--- NOTE | 2021-09-14 19:18 | PN ---
Date of Service: 09/14/2021 Subjective: Seen by bedside. Doing well. No complaints. Review of Systems: No chest pain, shortness of breath, orthopnea, cough. No nausea, vomiting, diarrhea. No abdominal pain. No dysuria, polyuria, or urinary urgency. All other systems reviewed are negative. Physical Examination: Vital Signs: Reviewed. Head and Neck: Pupils are equal, reactive to light. Intact eye movements. No JVD. No cervical lymphadenopathy. Neck: Supple. Thyroid is not enlarged. Lungs: Clear to auscultation bilaterally. No rhonchi, rales, or crackles. No accessory muscle use. Heart: Irregular. No extra sounds. Abdomen: Soft, nontender. Bowel sounds positive. No organomegaly. No masses or hernia. No rigidity or rebound. Skin: No rashes. Neurologic: Alert, awake, and oriented x3. No gross deficits. Lymph Nodes: No cervical or axillary lymphadenopathy. Cardiac: There is aortic systolic ejection murmur. Investigations: Labs reviewed. Assessment And Recommendations: 1. Severe aortic valve stenosis. Coronary angiogram tomorrow as part of workup for the valve replacement. 2. Non-ST elevation myocardial infarction. N.p.o. past midnight and plan for coronary angiogram tomorrow morning. /MODL Voice ID: [id number] Report ID: [id number] MICHA
[2021-09-14] MEDS ORDERED: PRAZOSIN HCL 1 MG CAP PO SCH (21:00)
[2021-09-14] MEDS ORDERED: CITALOPRAM 10 MG TABLET PO SCH (21:00)
[2021-09-14] MEDS: LORazepam 2 MG/ML VIAL IV PRN (21:14)
[2021-09-15] MEDS: NA CHLORIDE 0.9% 1,000 ML IV SCH ×2 (00:08→12:59)
[2021-09-15 04:09] LABS: Absolute Lymphocytes (CBC) 0.7 K/uL (0.7-4.9); Hematocrit 40.4 % (36.0-45.0); Lymphocytes % 8.7 % (15.3-44.8); MPV 12.1 fL (7.6-11.3); RBC Red Blood Cell Count 4.62 M/uL (3.86-4.86)
[2021-09-15] MEDS ORDERED: OXYBUTYNIN ER 5 MG TAB PO ONE (04:20)
[2021-09-15 04:31] LABS: Albumin 2.3 g/dL (3.4-5.0); Bilirubin Total 0.2 mg/dL (0.2-1.0); Potassium 3.2 mmol/L (3.5-5.1); Protein, Total 6.5 g/dL (6.4-8.2)
[2021-09-15] MEDS ORDERED: MORPHINE *EXTENDED RELEASE* 15 MG TAB PO ONE (04:31)
[2021-09-15] MEDS: LEVOTHYROXINE SOD 0.088 MG TAB PO SCH (04:59)
[2021-09-15] MEDS: ASPIRIN EC 81 MG TAB PO SCH (04:59)
[2021-09-15] MEDS: hydroCHLOROthiazide 12.5 MG CAP PO SCH (06:05)
[2021-09-15] MEDS: lisinopriL 5 MG TAB PO SCH (06:06)
[2021-09-15] MEDS: AMLODIPINE 10 MG TAB PO SCH (06:06)
[2021-09-15] MEDS: LACTULOSE 20 GM/30 ML UCUP PO SCH (07:22)
[2021-09-15] MEDS: OXYBUTYNIN CHLORIDE 5 MG TAB PO SCH (07:22)
[2021-09-15] MEDS: PANTOPRAZOLE 40MG TABLET PO SCH (07:22)
[2021-09-15] MEDS: VITAMIN B COMPLEX 1 CAP PO SCH (07:22)
[2021-09-15] MEDS: MULTIVITAMIN TAB PO SCH (07:22)
[2021-09-15] MEDS: RIFAXIMIN 550 MG PO SCH (07:22)
[2021-09-15] MEDS: INSULIN -REGULAR HUMAN 50 UNIT/0.5 ML ML SQ SCH ×2 (07:22→11:15)
[2021-09-15] MEDS: VITAMIN D 1000 UNIT TAB PO SCH (07:23)
[2021-09-15] MEDS: MORPHINE *EXTENDED RELEASE* 15 MG TAB PO SCH (07:23)
[2021-09-15] MEDS: MONTELUKAST 10 MG TAB PO SCH (07:23)
[2021-09-15] MEDS: PREGABALIN 50 MG CAP PO SCH ×2 (07:23→14:02)
[2021-09-15] MEDS: ASCORBIC ACID 500 MG TABLET PO SCH (07:23)
[2021-09-15] MEDS: BUPROPION HCL XL 150 MG TAB PO SCH (07:24)
--- NOTE | 2021-09-15 07:24 | ECHO ---
HEIGHT: 5 ft 5 in WEIGHT: 175 lb 0 oz DATE OF STUDY: 09/12/[address]: Tammy Whiteside 2-DIMENSIONAL: YES M.MODE: YES DOPPLER: YES COLOR FLOW: YES TDS: YES PORTABLE: YES DEFINITY: BUBBLE STUDY: DIAGNOSIS: STROKE CARDIAC HISTORY: CATHERIZATION: SURGERY: PROSTHETIC VALVE: PACEMAKER: MEASUREMENTS (cm) DIASTOLIC (NORMALS) SYSTOLIC (NORMALS) IVSd 1.0 (0.6-1.2) LA Diam (1.9-4.0) LVEF 59% LVIDd 3.7 (3.5-5.7) LVIDs 2.6 (2.0-3.5) %FS 31% LVPWd 1.1 (0.6-1.2) Ao Diam 2.7 (2.0-3.7) 2 DIMENSIONAL ASSESSMENT: RIGHT ATRIUM: NORMAL LEFT ATRIUM: NORMAL RIGHT VENTRICLE: NORMAL LEFT VENTRICLE: NORMAL TRICUSPID VALVE: NORMAL MITRAL VALVE: MILD MITRAL REGURGITATION PULMONIC VALVE: NORMAL AORTIC VALVE: SEVERE AORTIC SCLEROSIS AND MILD AORTIC INSUFFICIENCY PERICARDIAL EFFUSION: NONE AORTIC ROOT: NORMAL LEFT VENTRICULAR WALL MOTION: NORMAL DOPPLER/COLOR FLOW: SEE BELOW COMMENTS: NORMAL LEFT VENTRICULAR EJECTION FRACTION 55-60%. MILD MITRAL REGURGITATION. SEVERE AORTIC VALVE STENOSIS. MEAN GRADIENT OF 43 mmHg, MAX VELOCITY OF 4.2 m/s TECHNOLOGIST: DANILO GOLDEN
[2021-09-15] MEDS ORDERED: FENTANYL CITR 100 MCG/2 ML ONE (08:44)
[2021-09-15] MEDS ORDERED: LIDOCAINE 1% 20 ML MDV ONE (08:44)
[2021-09-15] MEDS ORDERED: MIDAZOLAM HCL 2 MG/2 ML INJ ONE ×3 (08:44→09:33)
[2021-09-15] MEDS ORDERED: HEPA 1000U/500MLS 1,000 UNIT/500 ML BAG IV ONE (08:44)
[2021-09-15] MEDS ORDERED: NA CHLORIDE 0.9% 0 ML ONE (08:45)
[2021-09-15] MEDS ORDERED: NA CHLORIDE 0.9% 100 ML IV ONE (08:45)
[2021-09-15] MEDS ORDERED: ATROPINE SULF 1 MG/10 ML SYR IV ONE (08:45)
[2021-09-15] MEDS: NICOTINE 21 MG/PAT TD SCH (08:46)
[2021-09-15] MEDS ORDERED: NITROGLYCERIN/D5W 0 MG/0 ML BTL IV ONE (09:18)
[2021-09-15] MEDS ORDERED: NITROGLYCERIN 100 MCG/ML SYR (for cath lab use only) IV ONE (09:18)
--- NOTE | 2021-09-15 10:06 | EEG ---
CHART: [id number] TEST ID#: [id number] DATE OF STUDY: 09/12/2021 THE EEG WAS RECORDED PORTABLE IN THE PATIENT'S ROOM ON A 17 CHANNEL MACHINE. ELECTRODES WERE APPLIED IN THE USUAL MANNER USING THE INTERNATIONAL 10-20 SYSTEM. THE WAKING BACKGROUND RHYTHM IN THIS RECORD CONSISTS OF FAIRLY WELL DEVELOPED AND FAIRLY WELL ORGANIZED WAVES OF 7 HZ., IN A WIDE DISTRIBUTION WHICH ATTENUATE FAIRLY WELL WITH EYE OPENING. MODERATE VOLTAGE 1.5-3 HZ ACTITVITY MIXED WITH MORE FREQUENT DIAPHASIC AND TRIPHASIC ACTIVITY IS EXPRESSED IN THE FRONTAL, CENTRAL AND TEMPORAL REGIONS. LOW-VOLTAGE 15-18 HZ ACTIVITY IS EXPRESSED IN THE FRONTAL REGIONS. THERE ARE NO FOCAL OR LATERALIZING FEATURES. NO EPILEPTIFORM ACTIVITY APPEARS. SLEEP DID NOT OCCUR. HYPERVENTILATION WAS NOT PERFORMED. PHOTIC STIMULATION PRODUCED NO DRIVING BILATERALLY. IMPRESSION: THIS IS A MODERATELY ABNORMAL ROUTINE EEG DUE TO THE PRESENCE OF A MODERATELY SLOW BACKGROUND AND FREQUENT DIAPHASIC AND TRIPHASIC SHARP WAVES WERE EXPRESSED IN THE FRONTAL, CENTRAL AND TEMPORAL REGIONS. THESE FINDINGS ARE CONSISTENT WITH A MODERATE DIFFUSE BUT NON-SPECIFIC DYSFUNCTION IN CEREBRAL ACTIVITY. DIFFERENTAL DIAGNOSIS SHOULD INCLUDE METABOLIC AND TOXIC ETIOLOGIES.
[2021-09-15] MEDS: FOLIC ACID 1 MG in NA CHLORIDE 0.9% 50 ML IV SCH (11:01)
[2021-09-15 11:15] VITALS: O2SAT 94
--- NOTE | 2021-09-15 11:23 | OP ---
Surgeon: Vazquez Ford MD Certified Coding Specialist: Velvet Pimentel. The patient will have a StarClose on the left groin and Angio-Seal on the right groin. She will be a t bedrest for 4 hours. We will discuss discharge later on today or tomorrow. The patient admitted to Dr. Machado and seen by Dr. De León over the weekend with non-STEMI and documen alyssia severe aortic stenosis by echo. The patient was brought to the [facility]orer landscape today for evaluation of her coronary anatomy and aortic valve. She underwent left and right heart catheterization, O2 satura tion measurement, cardiac output measurement, and I had to do an angiogram on her right common iliac artery because of poor access in that region. Procedure In Detail: The patient was brought in as an inpatient to the [facility], prepped and draped in routine sterile fashion. Given Versed and fentanyl for sedation. A right common femoral vein acc ess was obtained with a 7-Czech sheath. A 6-Czech sheath was introduced in the right common femora l artery. I could not get access with a wire. Angiography there showed complete occlusion of the co mmon iliac artery. We then anesthetized the left groin and I placed a 6-Czech sheath in the left co mmon femoral artery, which appeared to be patent. Left heart catheterization was initially done usin luisana Juan Ramon catheter. She was found to have a 30% left main, minor plaquing in the LAD, circumflex and RCA. Right heart catheterization was done with a [place]-Richie catheter using the right common femoral vein 7-Czech sheath. Pressures were measured from the right atrium into the right ventricle, PA pre ssure and wedge pressure. Cardiac output averaged about 5 L a minute. Right atrial pressure was 5, RV was 47/16, wedge pressure was 22, PA was 50/16. There were no complications. Blood Loss: 5 mL. Anesthesia: Total conscious sedation 60 minutes. Postoperative Diagnoses: Peripheral arterial disease with 100% right common iliac artery stenosis, s evere aortic stenosis by echo, mild coronary artery disease. Plan: The plan will be TAVR and a possible right common iliac artery stent down the road. I will di scuss the case further with Dr. Machado and Dr. De León. NB/MODL Voice ID: [id number] Report ID: [id number]
[2021-09-15 13:08] VITALS: BP 154/57; TEMP 97.2
--- NOTE | 2021-09-15 13:33 | CON ---
Type Of Service: Consult. Reason For Consult: To evaluate the patient for severe depression and provide treatment recommendations. Chief Complaint: Severe depression History Of Present Illness: Mrs. Mary Valverde is a 61-year-old female with psychiatric history significant for major depressive disorder, recurrent and anxiety disorder. She also has significant medical comorbidities, such as nonalcoholic cirrhosis of the liver, hypothyroidism, hypertension, COPD, type 2 diabetes, and UTI. She is was admitted via the emergency department on September 11, 2021, on account of alerted mental status. The patient was seen in her room on the medical floor and history was provided by the and her 2 daughters. Per the patient's , he found the patient on the floor instead of her motorized scooter. He states his initial thoughts were that she had fallen from the scooter, but when he tried getting her of the floor and back on her scooter he noticed that the patient was consciousness, but was very lethargic and needed help from him and one of the daughters. he also noticed that she was not responding to him or her daughter. EMS Service was subsequently called and was brought in. states that the patient has always been depressed off and on, and in April she had the similar episode. He states events or celebrations makes her more depressed like in April during [place] time when she had similar episode. She states that these episodes are characterized by abnormal posturing in which she sits rigidly upright on the chair or the bed for long time with difficulty to move her from the position, Muteness and they also observed that she is very withdrawn. No history of repetitive movements or repetitive phrases. No history of seizure disorders and/or history of psychosis. She has been o multiple antidepressants in the past and currently takes Celexa and Wellbutrin. Patient's daughters states she had a very traumatic child and adulthood. She states patient has been 5 times previously and she is in her sixth marriage. No history of suicidal attempt or self-injurious behavior reported. and states currently her mom and their oldest sister are not in good teams. She states that last episode in April, the patient was seen at [facility], where numerous workup was done and results were fine. The patient has had also other episodes in the past, usually last for few days, and the patient said to have fully recovered. Patient daughters states they have observed that each episode is usually preceded with stressful situations. Patient was until current episode helping her plan his upcoming birthday. She reports her appetite is poor. No history of aggressive behavior. No history of bipolar disorder. No history of substance abuse. No history of significant head injury. Patient has not been very compliant with her medications Labs: Magnesium was 1.7. Her liver enzymes were within normal. Platelets were low at 106. Urinalysis showed negative UTI. OBJECTIVE: Vital Signs: Stable Physical Examination: General: The patient is female, lying in bed, dressed in hospital gown. Not in any acute obvious respiratory distress. She is alert and oriented to her name and time only. HEENT: Normal. Respiratory System: Diminished. Cardiovascular System: S1, S2 normal. Musculoskeletal System: Xossa-pbo-[id number] left amputation. Mental Status Examination: The patient is obese built female, dressed in hospital gown. she is not in any obvious acute cardiopulmonary distress. She is not able to continue with rest of this examination as she was mostly nonverbal. Impression: This is a 61-year-old female with chronic psychiatric history significant for, major depressive disorder, recurrent and anxiety disorder, with multiple comorbid medical conditions. Her EKG is negative, no ST changes. Ammonia was within normal limits. CT scan of head revealed no acute findings 1. Major depressive disorder recurrent, severe with catatonia. 2. Selective mutism 3. Conversion disorder 4. Anxiety disorder. 5. Seizure disorder 6. myocardial infarction 7. congestive heart failure. Recommendations: 1 Ativan 2 mg PO 8hrly for Catatonia 2. Citalopram 40 mg p.o. daily for depressive symptoms. 3. Increase Bupropion 150 mg PO daily for depression and augmentation 4. Monitor input and output 5. No antipsychotic recommended for this patient (increase Risk for NMS) 6. Continue other medical treatment 7. MRI brain. 8. EEG/Video EEG 9. Discussed treatment recommendations with primary care. SALLIE/EMMANUEL Voice ID: [id number] Report ID: [id number] MICHA
[2021-09-15] MEDS ORDERED: INSULIN GLARGINE 100 UNIT/ML SQ SCH (14:00)
--- NOTE | 2021-09-15 14:36 | P.DS ---
Admission Date: 09/11/21 Discharge Date: 09/15/21 Primary Care Provider: James Charlesglendale) Disposition: ROUTINE DISCHARGE Discharge Condition: FAIR Reason for Admission: AMS - Problems (1) History of CVA (cerebrovascular accident) Current Visit: Yes Status: Acute (2) AMS (altered mental status) Current Visit: Yes Status: Acute Qualifiers: Altered mental status type: unspecified Qualified Code(s): R41.82 - Altered mental status, unspecified (3) COPD (chronic obstructive pulmonary disease) Current Visit: Yes Status: Chronic Qualifiers: COPD type: emphysema Emphysema type: unspecified Qualified Code(s): J43.9 - Emphysema, unspecified (4) Hypertension Current Visit: Yes Status: Chronic Qualifiers: Hypertension type: primary hypertension Qualified Code(s): I10 - Essential (primary) hypertension (5) Hypothyroidism Current Visit: Yes Status: Chronic Qualifiers: Hypothyroidism type: acquired Qualified Code(s): E03.9 - Hypothyroidism, unspecified (6) Non-alcoholic cirrhosis Current Visit: Yes Status: Chronic (7) Type 2 diabetes mellitus Current Visit: Yes Status: Chronic Qualifiers: Diabetes mellitus care home insulin use: without head animal trainer use Diabetes mellitus complication status: with kidney complications Diabetes mellitus complication detail: with chronic kidney disease Chronic kidney disease stage: stage 2 (mild) Qualified Code(s): E11.22 - Type 2 diabetes mellitus with diabetic chronic kidney disease; N18.2 - Chronic kidney disease, stage 2 (mild) Brief History of Present Illness: Patient is a 61-year-old female with past medical history of nonalcoholic cirrhosis of the liver, hypothyroidism, hypertension, COPD, type 2 diabetes, recurrent UTIs who presented to the ED via EMS with altered mental status. Per patient's daughter, patient lives with her and when he came home from work today he found her on the ground unresponsive surrounded by her urine and feces. Upon arrival to the ER, patient does open her eyes and occasionally grunts and is responsive to painful stimuli. Head CT showed 2.5 cm lodes density area right cerebellum and small low-density left cerebellum probably old infarction, otherwise within normal limits. CTA negative. Troponin elevated at 227 and BNP elevated at 415. EKG negative for ST changes. Ammonia, Pro-Mayur, and lactic acid within normal limits. Urine negative. Patient's daughter reports that she has not improved since arrival. She states that she has these episodes where she becomes confused that are typically relat ed to hepatic encephalopathy, but they have gradually gotten worse over time and lasted longer. Her last episode was in April where she went [facility] [place] however her ammonia was within normal limits and she did not have UTI. She was never given a definitive diagnosis. patient gradually improved over time and returned to baseline. Patient admitted for further management. Hospital Course: Patient admitted to the medical floor and placed on supportive measures including IV fluid. Patient's symptoms suggested behavioral issue. Psychiatry was consulted who suspected catatonia secondary to depression. Her bupropion dose was increased 400 mg daily to 150 mg daily. Continue with Celexa Also seen by Neurology-Dr. Alfonso. Patient's EEG demonstrated nonspecific spikes suggesting encephalopathy. Dr. 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 Anti-TPO ordered and the results are still pending. Patient started on high-dose uinrgyll-Thqr-Jeddox 1 g daily for 3 days. There was rapid improvement in mental status after starting IV steroid. Neurology considering LP pending anti- TPO result. Mental status improved to baseline baseline, currently oriented x4. Continued rifaximin and lactulose. Ammonia level was within normal limits. Cardiology saw patient for elevated troponin. Echocardiogram showing aortic stenosis. She was treated with full dose Lovenox. Dr. De León performed cardiac catheterization which showed mild coronary artery disease. Dr. De León is planning TAVR as outpatient. Also put on aspirin 81 mg daily. Patient tolerated diet when her mental status improved to baseline. Blood sugar managed with insulin sliding scale and Lantus insulin. Patient has clinically improved. Dr. Alfonso recommending prednisone taper. She is discharged with prednisone taper and follow-up with Dr. De León and Dr. Alfonso as outpatient. Vital Signs/Physical Exam: Temp Pulse Resp BP Pulse Ox 97.2 F 62 18 154/57 H 94 09/15/21 13:07 09/15/21 13:07 09/15/21 13:07 09/15/21 13:07 09/15/21 12:00 General: Alert, In no apparent distress, Oriented x3 HEENT: Normocephalic, Mucous membr. moist/pink Neck: Supple, JVD not distended Respiratory: Clear to auscultation bilaterally, Normal air movement Cardiovascular: No edema, Regular rate/rhythm, Normal S1 S2 Gastrointestinal: Soft and benign, Non-distended, No tenderness Musculoskeletal: No swelling Integumentary: No rashes Neurological: Normal strength at 5/5 x4 extr Laboratory Data at Discharge: WBC 8.2 K/uL (4.3-10.9) D 09/15/21 03:43 Hgb 13.6 g/dL (12.0-15.0) 09/15/21 03:43 Hct 40.4 % (36.0-45.0) 09/15/21 03:43 Plt Count 112 K/uL (152-406) L 09/15/21 03:43 PT 11.6 SECONDS (9.5-12.5) 09/10/21 21:50 INR 1.05 09/10/21 21:50 Sodium 140 mmol/L (136-145) 09/15/21 03:43 Potassium 3.2 mmol/L (3.5-5.1) L 09/15/21 03:43 BUN 25 mg/dL (7-18) H 09/15/21 03:43 Creatinine 1.02 mg/dL (0.55-1.3) 09/15/21 03:43 Glucose 245 mg/dL (74-106) H 09/15/21 03:43 Phosphorus 2.6 mg/dL (2.5-4.9) 09/12/21 05:00 Magnesium 1.7 mg/dL (1.8-2.4) L 09/12/21 05:00 Total Bilirubin 0.2 mg/dL (0.2-1.0) 09/15/21 03:43 AST 17 U/L (15-37) 09/15/21 03:43 ALT 12 U/L (12-78) 09/15/21 03:43 Alkaline Phosphatase 117 U/L (45-117) 09/15/21 03:43 Triglycerides 86 mg/dL (<150) 09/11/21 03:15 Cholesterol 144 mg/dL (<200) 09/11/21 03:15 HDL Cholesterol 28 mg/dL (40-60) L 09/11/21 03:15 Cholesterol/HDL Ratio 5.14 09/11/21 03:15 Home Medications: Ascorbic Acid [Vitamin C*] 500 mg PO DAILY 08/23/17 Cholecalciferol (Vitamin D3) [Vitamin D 1000 Iu Tab*] 1,000 unit PO DAILY 08/23/17 Citalopram Hydrobromide [Citalopram HBr] 20 mg PO BEDTIME 08/23/17 Insulin Glargine,Hum.rec.anlog [Lantus] 0 unit SQ DAILY 08/23/17 L.acidoph,Paracasei, B.lactis [Probiotic] 3 each PO DAILY 08/23/17 Levothyroxine [Synthroid*] 88 mcg PO [id number] 08/23/17 Montelukast [Singulair*] 10 mg PO DAILY 08/23/17 Multivitamin [Multivitamins] 1 each PO DAILY 08/23/17 Omeprazole 60 mg PO DAILY 08/23/17 Oxybutynin Chloride [Ditropan*] 5 mg PO BID 08/23/17 Pioglitazone HCl 15 mg PO DAILY 08/23/17 Rifaximin [Xifaxan] 550 mg PO BID 08/23/17 Vitamin B Complex [B Complex] 1 each PO DAILY 08/23/17 hydroCHLOROthiazide [Hydrochlorothiazide*] 25 mg PO DAILY 08/23/17 Lactulose 15 gm PO BID 09/11/21 Lisinopril [Zestril] 2.5 mg PO DAILY 09/11/21 Morphine *Extended Release* [MS Contin*] 15 mg PO BID 09/11/21 Prazosin HCl 1 mg PO BEDTIME 09/11/21 Pregabalin 100 mg PO TID 09/11/21 buPROPion HCL [Bupropion HCl Sr] 100 mg PO DAILY 09/11/21 ursodioL [Ursodiol] 600 mg PO BID 09/11/21 Amlodipine [Norvasc*] 10 mg PO DAILY #30 tab 09/15/21 Aspirin [Aspirin EC 81 MG] 81 mg PO DAILY #30 tablet. 09/15/21 Bupropion *Xl* [Wellbutrin XL*] 150 mg PO DAILY #30 tab 09/15/21 predniSONE [Deltasone*] 10 mg PO DAILY #30 tab 09/15/21 New Medications: Aspirin [Aspirin EC 81 MG] 81 mg PO DAILY #30 tablet. predniSONE [Deltasone*] 10 mg PO DAILY #30 tab Amlodipine [Norvasc*] 10 mg PO DAILY #30 tab Bupropion *Xl* [Wellbutrin XL*] 150 mg PO DAILY #30 tab Diet: ADA Activity: Fall precautions Followup: Say Alfonso MD [ASSOCIATE-ACTIVE - CAN ADMIT] - 1-2 Weeks GEORGE VAZQUEZ [Primary Care Provider] - Kwaku De León MD [ACTIVE - CAN ADMIT] - 1-2 Weeks Time spent managing pt's care (in minutes): 42
--- NOTE | 2021-09-16 02:57 | PN ---
Subjective: Ms. Valverde is doing very well. She is alert and oriented to person, place, time, and situation. Follows commands appropriately and expressed herself without difficulty. She has no new complaints. She actually had evaluation by Cardiology and apparently significant large vessel disease with plan for potential intervention. These include arterial blockages in the lower extremities and in the coronary region as well as in the carotids. Objective: Vital Signs: Blood pressure 154/57, pulse 82, respiratory rate 18, temperature 97.2, oxygen saturation 94% to 95%, weight 175 pounds, height 5 feet 5 inches. General: Ms. Valverde is sitting up in bed. She is in no acute distress. She appears normocephalic, atraumatic. HEENT: Sclerae are anicteric. Oropharynx pink and moist. Neck: Supple. Chest: Clear. Heart: Regular rate and rhythm. Extremities: Show no clubbing, cyanosis, or edema. Laboratory Studies: Complete blood count with differential essentially unremarkable. Chemistry; sodium 140, potassium low 3.2, chloride 109. Her glucose did range 186 to 253, calcium 8.3. Liver function studies are normal. Ammonia is 18 and normal. She has a pending thyroid peroxidase antibody and thyroglobulin antibody. Assessment/Plan: Ms. 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 She returned to her baseline cognitive level of functioning. Underwriting Clerks Supervisor evaluation determined multiple arterial blockages that require intervention and is planning for angioplasty. Taper off prednisone over [address] Alfonso's office and follow up within a month. HORTENCIA/EMMANUEL Voice ID: [id number] Report ID: [id number] MICHA
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
== END 2021-09-15 15:00 | disposition home or self-care (01) | DRG 643 ==
LOC: ER 18:00 → ERHOLD 09-11 01:24 → 2ND 09-11 14:41
PROVIDERS: ADMIT Internal Medicine; ATTEND Internal Medicine
PROC: B201YZZ Plain Radiography of Multiple Coronary Arteries using Other Contrast (ICD-10-PCS; principal; 2021-09-15)
PROC: 4A023N8 Measurement of Cardiac Sampling and Pressure, Bilateral, Percutaneous Approach (ICD-10-PCS; 2021-09-15)
PROC: B40FYZZ Plain Radiography of Right Lower Extremity Arteries using Other Contrast (ICD-10-PCS; 2021-09-15)
DX: E06.3 Autoimmune thyroiditis (principal); I21.4 Non-ST elevation (NSTEMI) myocardial infarction; G93.40 Encephalopathy, unspecified; F32.9 Major depressive disorder, single episode, unspecified; F06.1 Catatonic disorder due to known physiological condition; F41.9 Anxiety disorder, unspecified; K74.60 Unspecified cirrhosis of liver; E03.9 Hypothyroidism, unspecified; J44.9 Chronic obstructive pulmonary disease, unspecified; I35.0 Nonrheumatic aortic (valve) stenosis; I25.10 Atherosclerotic heart disease of native coronary artery without angina pectoris; F44.4 Conversion disorder with motor symptom or deficit; I70.201 Unspecified atherosclerosis of native arteries of extremities, right leg; F17.210 Nicotine dependence, cigarettes, uncomplicated; I12.9 Hypertensive chronic kidney disease with stage 1 through stage 4 chronic kidney disease, or unspecified chronic kidney disease; E11.22 Type 2 diabetes mellitus with diabetic chronic kidney disease; N18.2 Chronic kidney disease, stage 2 (mild); Z89.512 Acquired absence of left leg below knee; Z86.73 Personal history of transient ischemic attack (TIA), and cerebral infarction without residual deficits; Z20.822 Contact with and (suspected) exposure to COVID-19
CPT/HCPCS: 0240U; 36415; 51702; 70450; 70496; 70498; 70553; 71045; 72125; 80048; 80053; 80061; 80076; 81003; 81015; 82140; 82550; 82805; 82947; 83605; 83735; 83880; 84100; 84145; 84439; 84443; 84484; 85025; 85610; 86376; 86800; 87040; 93005; 93306; 93456; 95816; 99285; A9577; C1760; C1893; G0269; J0360; J0583; J1630; J1644; J1650; J1815; J2250; J2405; J2930; J3010; J7030; Q9967

== ENCOUNTER 2021-10-03 11:49 | Emergency (ER) | payer OTHER ==
--- OUTSIDE RECORDS SUMMARY | 2021-10-03 11:53 | XMS REPORT | Continuity of Care Document ---
:1960 Author Organization [facility] t Address [address] [place] [address] Care Team Providers Name Role Phone LISANikos Primary Care Physician Unavailable ALIN Attending Clinician Unavailable Danette Leal PA-C Attending Clinician Maldonado PLUMMER Attending Clinician Unavailable LIN POWELL Attending Clinician Unavailable LIN POWELL Attending Clinician Unavailable Isadora Key MD Attending Clinician Lin Powell MD Attending Clinician Payers Payer Name Policy Type Policy Number Effective Date Expiration Date S adelina [facility] [id number] 2021 MEDICARE GOLD PPO 00:00:00 CSNP Problems Condition Condition Condition Status Onset Resolution Last Treating Co mments Source Name Details Category Date Date Treatment Clinician Date COVID COVID Disease Active 2020-05 Univers 1-30 ity of 00:00: [place] 00 Medical Branch AMS AMS Disease Active 2020-05 Univers (altered (altered 1-29 ity of mental mental 00:00: [place] status) status) 00 Medical Branch Altered Altered Disease Active Univers mental mental 9-16 ity of status status 00:00: Medical Branch Pancreatit Pancreatit Disease Active U nivers is is 9-12 ity of 00:00: Medical Branch Abnormal Abnormal Disease Active Metho di LFTs LFTs [facility] [facility] 00:00: Hospita 00 l Portal Portal [...] Methodi (hepatic (hepatic 06-20 encephalop encephalop 00:00: Adrien hanley) athvernell) 00 l Weight Weight Disease Active 2016-05 [...] 2016-05 Uni vers 0-09 ity of 00:00: Medical Branch Urinary Urinary Disease Active Univers tract tract 8-04 ity of infection infection 00:00: s Medical Branch Pain in Pain in Disease Active Univers right leg right leg 7-17 ity of 00:00: [facility] Branch Chronic Chronic Disease Active Univers frontal frontal 7-17 ity of sinusitis sinusitis 00:00: a s Medical Branch Intermitte Intermitte Disease Active U nivers nt nt 7-17 ity of confusion confusion [place] Recurrent Recurrent Disease Active Uni vers UTI UTI 7-17 ity of (urinary (urinary 00:00: [place] tract tract 00 Medical infection) infection) Br anch Major Major Disease Active Univers depressive depressive 7-17 it y of disorder disorder 00:00: [place] [facility] Troponin I Troponin I Disease Active U nivers above above 6-07 ity of reference reference 00:00: Miguel perry range range 00 Medical Branch Acute Acute Disease Active Univers pancreatit pancreatit 6-06 it y of is is 00:00: [place] [facility] Status 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:00: [place] amputation amputation 00 Me dical of right of right Branch lower lower extremity extremity Wound Wound Disease Active Univers dehiscence dehiscence 5-16 it y of , initial , initial 00:00: Miguel perry encounter encounter 00 [facility] Essential Essential Disease Active Uni vers hypertensi hypertensi 4-25 it y of on on 00:00: [place] [facility] Mixed Mixed Disease Active Univers hyperlipid hyperlipid 4-25 it y of emia emia 00:00: [place] [facility] Hypothyroi Hypothyroi Disease Active U [...] nivers error error 2-18 ity of 00:00: [place] [facility] Type 2 Type 2 Disease Active Univers diabetes diabetes 2-18 ity of mellitus mellitus 00:00: [place] with with 00 [facility] diabetic diabetic Branch neuropathy neuropathy , with , with long-term long-term current current use of use of insulin insulin 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 ICD10 Diagnosis Term Fruit Cutter Utility Esophageal Esophageal Disease Active U nivers reflux reflux 4-29 ity of 00:00: [place] 00 Medical Branch [...] Start Date Stop Date Source Natural father [facility] Natural mother Cancer [facility] Social History Social Habit Start Date Stop Date Quantity Comments Source History of tobacco 1974-08-11 Cigarette Smoker [facility]ism use 00:00:00 Hospital Education 2021-05-13 2021-05-13 21 University of 00:00:00 00:00:00 [facility] Alcohol intake 2020-01-30 2020-01-30 Current Sikhism 00:00:00 00:00:00 non-drinker of Hospital alcohol (finding) Cigarettes smoked 2016-08-11 2016-08-[address] current (pack per 00:00:00 00:00:00 Hospita l day) - Reported Cigarette 2016-08-11 2016-08-11 S[facility]ism pack-years 00:00:00 00:00:00 Hospital Tobacco use and 2016-08-11 2016-08-11 Smokeless Sikhism exposure 00:00:00 00:00:00 tobacco non-user Hospital Sex Assigned At [birth year] F [facility]ism 00:00:00 00:00:00 Hospital Smoking Status Start Date Stop Date Source Current every day smoker 2015-07-11 00:00:00 Uni versity [facility] Medications Ordered Filled Start Stop Current Ordering Indication Dosage Frequency Signature Comments Components Source Medication Medication Date Date Medication? Clinician (SIG) Name Name riFAXimin 2021- No 550mg Q.5D Take 1 Meth slim (XIFAXAN) 07-[address] 550 mg 00:00: 04:59 (550 mg Hospita tablet 00 :00 total) by l mouth 2 (two) times a day for 30 days. lactulose 2021- No 20g Q.[id number] Take 30 mL Methodi (CHRONULAC) 06-26 [id number] ([address] 10 gram/15 00:00: 04:59 3D total) by H ospita mL solution 00 :00 mouth 3 l (three) times a day for 120 days. Titrate to 2 BM per day. morphine ER 2020-05 Yes 15mg Take 15 mg Univers 15 mg 12 hr 2-24 by mouth 2 it y of tablet 02:38: (two) [place] 03 times Medical daily. Branch buPROPion 2020-05 Yes 100mg Take 100 Uni vers SR 100 mg 2-24 mg by ity of SR tablet 02:38: mouth [place] 03 daily. Medical Branch citalopram 2020-05 Yes 40mg Take 40 mg U nivers 20 mg 2-22 by mouth ity of tablet 14:57: daily. [place] [facility] Branch oxybutynin 2020-05 Yes 5mg Take 5 mg Un matthew chloride 5 2-22 by mouth 3 ity of mg tablet 14:57: (three) [place] 09 times Medical daily. Branch rifAXIMin 2020-05 Yes [...] by ity of capsule 14:57: mouth 3 (three) Medical times Branch daily. prazosin 1 2020-05 Yes 1mg Take 1 mg Un matthew mg capsule 2-22 by mouth ity o f 14:57: daily. Medical Branch hydroCHLORO 2020-05 Yes 25mg Take 25 mg Univers thiazide 25 2-22 by mouth ity of mg tablet 14:57: daily. [facility] Branch levothyroxi 2020-05 Yes [id number] 50ug Take 1 Univers ne 50 mcg 2-16 tablet by ity o f tablet 00:00: mouth every Medical morning. Branch ALPRAZolam 2020-05- No [id number] 1mg Take 1 Methodi (Xanax) 1 2-16 12-17 tablet (1 st MG tablet 00:00: 05:59 mg total) Ho spita 00 :00 by mouth l once as needed for anxiety (for MRI) for up to 1 dose. Insulin 2020-05 Yes [id number] 30U inject 30 U nivers Glargine 2-14 Units ity of (LANTUS 00:00: under the [place] SOLOSTAR 00 skin Medical U-100 daily. Branch INSULIN) 100 unit/mL (3 mL) injection pioglitazon 2020-05 Yes [id number] 15mg Take 1 Univers e 15 mg 2-14 tablet by ity of tablet 00:00: mouth daily. Medical Branch ursodioL Yes Take 2 Methodi (ACTIGALL) 5-[address] 300 mg 00:00: twice a Hospita capsule 00 day l OMEPRAZOLE 2019-0 Yes 20mg Q.5D Take 20 mg M ethodi (PRILOSEC [address] ORAL) 10:58: (two) Hospita 15 times a l day. Unknown dosage LACTOBACILL 2019-0 Yes 1{tbl} Take 1 Me thodi US -[address] ACIDOPHILUS 10:58: mouth Hospi [...] Take 20 mg M ethodi (CeleXA) 20 9-[address] MG tablet 10:58: daily. Hospit a 15 l tiZANidine 2019-0 Yes 4mg Q8H Take 4 mg Me thodi (ZANAFLEX) 9-[address] 4 MG tablet 10:58: every 8 Hos zara 15 (eight) l hours as needed for muscle spasms. pioglitazon 2019-0 Yes 15mg Q.5D Take 15 mg Methodi e (ACTOS) 9-[address] 15 MG 10:58: (two) Hospita tablet 15 times a l day. nitrofurant 2019-0 Yes 50mg QD Take 50 mg Methodi oin 9-[address] (MACRODANTI 10:58: daily. Hosp thom N) 50 MG 15 l capsule Xifaxan 550 2020- No [id number] 550mg Q.5D Take 1 Methodi mg tablet 10-[address] 00:00: 04:59 (550 mg Hospita [...] tablet 39 times a l day. lisinopril Yes 2.5mg QD Take 2.5 Me thodi (PRINIVIL,Z 3-[address] ESTRIL) 2.5 00:00: mouth Hospi ta mg tablet 00 daily. l morPHINE 2019-0 Yes 15mg Q.5D Take 15 mg Met hodi (MS CONTIN) 3-[address] 15 MG 12 hr 00:00: (two) Hospi ta tablet 00 times a l day. hydroCHLORO 2018-0 Yes 12.5mg QD Take 12.5 Methodi thiazide 4-[address] (MICROZIDE) 00:00: mouth Hospi ta 12.5 mg 00 daily. l capsule Immunizations Ordered Filled Immunization Date Status Comments [facility] e Immunization Name Name Influenza Virus 2020-04-30 Completed Universit y of Vaccine Quad .5 mL 00:00:00 [facility] 6+ MO [place] Influenza Trivalent 2019-04-07 Completed Metho dist 00:00:00 [facility] Pneumococcal 2019-04-07 Completed S[facility]ism Conjugate 00:00:00 [facility] Influenza Virus 2019-04-07 Completed Universit y of Vaccine (3+ yrs) 00:00:00 [facility] dical [place] Pneumococcal 7 2019-04-07 Completed University of Conjugate, PCV7 00:00:00 [facility] ical (Prevnar7) Branch Pneumococcal 2019-03-31 Completed University o f Polysaccharide, 00:00:00 [facility] ical PPSV23 (PNEUMOVAX) Branch Zoster Vaccine 2018-09-16 Completed University of Recombinant 00:00:00 [facility] Zoster Vaccine 2018-07-22 Completed University of Recombinant 00:00:00 [facility] Influenza Virus 2018-02-24 Completed Universit y of Vaccine Quad ID 00:00:00 [facility] ical 18-64 YRS Branch Pneumococcal 2018-02-24 Completed University o f Polysaccharide, 00:00:00 [facility] PPSV23 (PNEUMOVAX) Branch Influenza Virus 2017-03-02 Completed Universit y of Vaccine Quad IM 3+ 00:00:00 [facility] Pneumococcal 13 2016-08-30 Completed Universit y of Conjugate, PCV13 00:00:00 [facility] dical (Prevnar 13) Branch Pneumococcal 2016-08-30 Completed Sikhism Conjugate 13-Valent 00:00:00 Hospi rayo Procedures Procedure Date / Time Performing Clinician Source Performed GGT 2021-06-25 13:10:00 Ty Key [facility]ital PROTHROMBIN TIME WITH INR 2021-06-25 13[facility]10[facility] AND 2021-06-25 13:10:00 Shahid [facility] DIFFERENTIAL COMPREHENSIVE METABOLIC 2021-06-25 13:10:00 Ty Key [facility] PANEL CBC WITH PLATELET AND 2021-04-15 14:50:00 Shahid [facility] DIFFERENTIAL COMPREHENSIVE METABOLIC 2021-04-15 14:50:00 Ty Key [facility] PANEL PROTHROMBIN TIME WITH INR 2021-04-15 14:50:[facility] 2021-04-15 14:50:00 Ty Key [facility] ospital US ABDOMEN COMPLETE 2021-03-21 14:00:21 Shahid [facility] CBC WITH PLATELET AND 2021-03-21 13:20:00 Shahid [facility] DIFFERENTIAL COMPREHENSIVE METABOLIC 2021-03-21 13:20:00 Ty Key [facility] PANEL PROTHROMBIN TIME WITH INR 2021-03-21 13:20:00 Ty Key [facility] ALPHA FETOPROTEIN 2021-03-21 13:20:00 Shahid [facility] CBC WITH PLATELET AND 2020-12-27 15:07:00 Shahid [facility] DIFFERENTIAL COMPREHENSIVE METABOLIC 2020-12-27 15:07:00 Ty Key [facility] PANEL IMMUNOGLOBULIN G, A, M 2020-12-27 15:07:00 Shahid [facility] PROTHROMBIN TIME WITH INR 2020-12-27 15:07[facility]IB[facility] 2020-12-27 15:07:00 Ty Key [facility] ospital PARTIAL THROMBOPLASTIN 2020-12-27 15:07:00 Shahid [facility] TIME (PTT) SERUM ELECTROPHORESIS 2020-12-27 15:07:00 Shahid [facility] US ABDOMINAL DOPPLER 2020-09-27 16:00:19 Ty Key [facility] US ABDOMEN COMPLETE 2020-09-27 15:57:[address] [facility] CBC WITH PLATELET AND 2020-09-27 15:55:00 Ty Key [facility] DIFFERENTIAL COMPREHENSIVE METABOLIC 2020-09-27 15:55:00 Ty Key [facility] PANEL GGT 2020-09-27 15:55:00 Ty Key ospital PROTHROMBIN TIME WITH INR 2020-09-27 15:55:00 Ty Key [facility] IMMUNOGLOBULIN G, A, M 2020-09-27 15:55:00 Ty Key [facility] [place] Plan of Care Planned Activity Planned Date Details Comments Source Future Scheduled 2021-09-18 DIABETES: RETINAL EYE [facility] Test 09:07:55 EXAM [code = DIABETES: RETINAL EYE EXAM] Future Scheduled 2021-09-18 DIABETIC FOOT EXAM [facility] Test 09:07:55 [code = DIABETIC FOOT EXAM] Future Scheduled 2021-09-18 URINE MICROALBUMIN [facility] Test 09:07:55 [code = URINE MICROALBUMIN] Future Scheduled 2021-09-18 Hepatitis C screening [facility] Test 09:07:55 (procedure) [code = 848108428] Future Scheduled 2021-09-18 Screening for [facility] Test 09:07:55 malignant neoplasm of cervix (procedure) [code = 106737972] Future Scheduled 2021-09-18 BREAST CANCER [facility] Test 09:07:55 SCREENING [code = BREAST CANCER SCREENING] Future Scheduled 2021-09-18 COLONOSCOPY SCREENING [facility] Test 09:07:55 [code = COLONOSCOPY SCREENING] Future Scheduled 2021-09-18 SHINGLES VACCINES (#2) [facility] Test 09:07:55 [code = SHINGLES VACCINES (#2)] Future Scheduled 2021-09-[address] [facility] Test 09:07:55 [code = INFLUENZA VACCINE] Encounters Start End Encounter Admission Attending Care Care Encounter Source Date/Time Date/Time Type Type Clinicians Facility Department ID 2022-05-06 2022-05-06 Outpatient Lissette OGDEN [facility] [id number] [facility] 14:00:00 14:00:00 ARELY [id number] [facility] 2021-07-22 2021-07-22 Telephone Elvis, 1.2.840.1 [id number] Methodi 00:00:00 00:00:[address] Danette 3.430.2.7 Hospit a .3.632811 l .8 2021-07-22 2021-07-22 Kenia Okeefe, 1.2.840.1 [id number] Methodi 00:00:00 00:00:[address] 3.430.2.7 Hospit a .3.591890 l .8 2021-07-14 2021-07-14 Outpatient R ELIEL POWELL [facility] [id number] [facility] 11:20:00 11:44:23 [facility] 2021-06-26 2021-06-26 Telemedici Shahid 1.2.840.1 [id number] Methodi 10:30:00 10:30:00 pastor Muir [address] 3.430.2.7 Hospit a .3.777164 l .8 2021-06-23 2021-06-23 Adwoa Okeefe, 1.2.840.1 [id number] Methodi 00:00:00 00:00:00 Only Amrit 31471.1.[address] 3.430.2.7 Hospit a .3.091745 l .8 2021-06-20 2021-06-20 Zen Powell [facility] 1.2.840.114 [id number] Univers 00:00:00 00:00:00 [facility] [id number] [place] dical [facility] 2021-05-08 2021-05-08 Adwoa Key 1.2.840.1 [id number] Methodi 00:00:00 00:00:00 Only Ty Muir 86566.1.[address] 3.430.2.7 Hospit a .3.460667 l .8 2021-03-27 2021-03-27 Telemedici Shahid 1.2.840.1 [id number] Methodi 15:15:00 15:15:00 ne Ty Muir 54015.1.[address] 3.430.2.7 Hospit a .3.219032 l .8 2021-03-21 2021-03-21 Tulio Key, 1.2.840.1 [id number] Methodi 07:55:00 08:00:00 Ty Muir [address]386[address]1.[address] 3.430.2.7 Hospit a .3.059919 l .8 2021-02-07 2021-02-07 Travel 1.2.840.1 1.2.890.395 [id number] Methodi 00:00:00 00:00:[address] 3.430.2.7 0.2.7.3.698 Ho spita .3.738939 084.8 l .8 2021-01-09 2021-01-09 Telemedici Shahid, 1.2.840.1 [id number] Methodi 14:15:00 14:15:00 ne Ty Muir 30371.1.[address] 3.430.2.7 Hospit a .3.422037 l .8 2020-12-27 2020-12-27 Travel 1.2.840.1 1.2.314.790 [id number] Methodi 00:00:00 00:00:[address] 3.430.2.7 0.2.7.3.698 Ho spita .3.905812 084.8 l .8 2020-10-14 2020-10-14 Zen Okeefe, 1.2.840.1 [id number] Methodi 00:00:00 00:00:[address] 3.430.2.7 Hospit a .3.681583 l .8 2020-10-07 2020-10-07 Telemedici Shahid, 1.2.840.1 [id number] Methodi 14:15:00 14:32:11 ne Ty Muir 58387.1.[address] 3.430.2.7 Hospit a .3.214876 l .8 2020-09-27 2020-09-27 Lab Shahid, 1.2.840.1 [id number] Methodi 11:00:00 11:05:[address] 3.430.2.7 Hospit a .3.996026 l .8 2020-09-27 2020-09-27 Travel 1.2.840.1 1.2.316.467 [id number] Methodi 00:00:00 00:00:[address] 3.430.2.7 0.2.7.3.698 Ho spita .3.237938 084.8 l .8 Results Test Description Test Time Test Comments Results Result Comments Source Comprehensive metabolic panel 2021-06-26 09:48:00 Test Item Value Reference Range Interpretation Comme nts Glucose (test code = 118 mg/dL 65-99 H Fasting 2345-7) reference inter emmy For someone without known diabetes, a glu cose valuebetween 10 0 and 125 mg/dL is consis tent withprediabetes and should be confi rmed with afollow-up test . BUN (test code = 3094-0) 14 mg/dL 7-25 Creatinine (test code = 0.96 mg/dL 0.50-0.99 For patients >49 years of 2160-0) age, the refere nce limitfor Creati nine is approximately 1 3% higher for peopleident ified as -Rabia n. EGFR Non-Afr. Icelandic See_Comment [Aut omated message] The (test code = 2775) system [employer] generated this result tra nsmitted reference range : > OR = 60 mL/min/1.73m 2. The reference range was not used to interpr et this result as normal/abnormal . EGFR See_Comment [Auto mated message] The (test code = 2774) system [employer]alking generated this result tra nsmitted reference range [...] as normal/abnormal . Sodium (test code = 138 mmol/L 438-155 5770-2) Potassium (test code = 4.5 mmol/L 3.5-5.3 2823-3) Chloride (test code = 101 mmol/L 98-110 2075-0) CO2 (test code = 2027-9) 32 mmol/L 20-32 Calcium (test code = 9.3 mg/dL 8.6-10.4 24120-1) Protein (test code = 7.4 g/dL 6.1-8.1 2885-2) Albumin, S (test code = 3.4 g/dL 3.6-5.1 L 1751-7) Globulin, total (test See_Comment H [Auto mated message] The code = 97519-9) system which generated this result tra nsmitted [...] result as normal/abnormal . Total bilirubin (test 0.3 mg/dL 0.2-1.2 code = 1975-2) Alkaline phosphatase 164 U/L 37-153 H (test code = 6768-6) AST (test code = 1920-8) 25 U/L 10-35 ALT (test code = 1742-6) 7 U/L 6-29 SARAH (test code = SARAH) FASTING:YES FASTING: YES RAC (test code = RAC) Performing Organization Information: Site ID: RGA Name: [facility] Address: [address] [place] [id number] Director: Pastor Main Lab Interpretation (test Abnormal code = 24760-5) [id number] 09:48:00 Test Item Value Reference Range Interpretation Comments GGT (test code = 30 U/L 2324-2) SARAH (test code = FASTING:YES FASTING: YES SARAH) RAC (test code = Performing Organization RAC) Information: Site ID: RGA Name: [facility] Address: [address] [place] [id number] Director: aPstor Main [facility] with platelet and [id number] 09:48:00 Test Item Value Reference Range Interpretation Comments WBC (test code = See_Comment H [Automated 0390-2) message] The system which generated this result transmitted reference range : 3.8 - 10.8 Thousand/uL. Th e reference range was not used to interpret this result as normal/abnormal . RBC (test code = See_Comment [Automated 549-8) message] The system which generated this result transmitted reference range : 3.80 - 5.10 Million/uL. The reference range was not used to interpret this result as normal/abnormal . HGB (test code = 14.7 g/dL 11.7-15.5 718-7) HCT (test code = 43.5 % 35.0-45.0 4544-3) MCV (test code = 91.4 fL 80.0-100.0 787-2) MCH (test code = 30.9 pg 27.0-33.0 785-6) MCHC (test code = 33.8 g/dL 32.0-36.0 786-4) RDW (test code = 12.6 % 11.0-15.0 788-0) Platelet count (test See_Comment [Autom ated code = 777-3) message] The system which generated this result transmitted reference range : 140 - 400 Thousand/uL. Th e reference range was not used to interpret this result as normal/abnormal . MPV (test code = 14.1 fL 7.5-12.5 H 776-5) Neutrophils, See_Comment [Automated absolute (test code message] The = 911-8) system which generated this result transmitted reference [...] result as normal/abnormal . Monocytes, absolute See_Comment H [Automa alyssia (test code = 742-7) message] [...] this result as normal/abnormal . Neutrophils (test 58.2 % code = 770-8) Lymphocytes (test 31.2 % code = 736-9) Monocytes (test code 8.4 % = 5905-5) Eosinophils (test 1.0 % code = 713-8) Basophils + RC (test 1.2 % code = 706-2) SRAAH (test code = FASTING:YES SARAH) FASTING: YES RAC (test code = Performing RAC) Organization Information: Site ID: RGA Name: [facility] Address: [address] [place] [id number] Director: Pastor Main Lab Interpretation Abnormal (test code = 77935-9) [facility] Center[facility]th[facility]bin time with [id number] 09:48:00 Test Item Value Reference Range Interpretation Comments INR (test code = Reference R herman 6301-6) 0.9-1.1Moderate -i ntensity Warfar in Therapy 2.0-3.0Higher-i nt ensity Warfarin Therapy 3.0-4 .0 Prothrombin time See_Comment For additio nal (test code = information, 5902-2) please refer [email or web address] io n.BuzzwirediagnNanocomp Technologies/faq/FAQ10 4( This link is being provided for informational/e du cational purpos es only.) [Automated message] The system which generated this result transmitted reference range : 9.0 - 11.5 sec. The reference range was not used to interpr et this result as normal/abnormal . SARAH (test code = FASTING:YES SARAH) FASTING: YES RAC (test code = Performing RAC) Organization Information: Site ID: RGA Name: [facility] Address: [address] [place] [address] Director: Pastor Main [facility] [id number] 15:57:00 Test Item Value Reference Interpretation Comments Range Alpha 5.3 ng/mL Reference Range : <6.1The fetoprotein use of AFP as a tumor (test code = marker in pregn antfemales 27132-5) is not recommen ded. This test was perfor med using the Iza Coulterchemilum inescent method. Values obtained fromdifferent a ssay methods cannot be usedinterchange ably. AFP levels, regardl ess ofvalue, should not be interpreted as absoluteevidenc e of the presence or abs ence of disease. RAC (test code Performing = RAC) Organization Information: Site ID: IG Name: [facility] Address: [address] [place] [address] Director: Dr. Pastor Main [facility] [id number] 09:13:00 Test Item Value Reference Range Interpretation Comments Protein (test code = 7.5 g/dL 6.1-8.1 2885-2) Albumin, S (test 3.4 g/dL 3.8-4.8 L code = 2862-1) Vzvwo-9-iqfcamzq 0.3 g/dL 0.2-0.3 (test code = 2865-4) Wtzzw-4-cbupbgan 0.8 g/dL 0.5-0.9 (test code = 2868-8) Beta-1 globulin 0.6 g/dL 0.4-0.6 (test code = 88365-3) Beta-2 globulin 0.6 g/dL 0.2-0.5 H (test code = 51796-6) Gamma globulin (test 1.8 g/dL 0.8-1.7 H code = 2874-6) Interpretation (test Consis tent with code = 32386-8) a chronic inflammatory pattern Possib le monoclonal protein (M-protein) present.Suggest serum immunofixation. SARAH (test code = FASTING:YES SARAH) FASTING: YES RAC (test code = Performing RAC) Organization Information: Site ID: IG [facility]: [facility] Address: [address] [place] [address] Director: Dr. Pastor Main Lab Interpretation Abnormal (test code = 20654-9) [facility] Center[facility]oglob[facility] G, A, [id number] 09:13:00 Test Item Value Reference Range Interpretation Comments IgA (test code = 2458-8) 550 mg/dL 70-320 H IgG (test code = 2465-3) 1872 mg/dL 600-1540 H IgM (test code = 2472-9) 140 mg/dL 50-300 SARAH (test code = SARAH) FASTING:YES FASTING: YES RAC (test code = RAC) Performing Organization Information: Site ID: RGA Name: [facility] Address: [address] [place] [id number] Director: Pastor Main Lab Interpretation (test Abnormal code = 50659-9) [facility] [id number] 09:13:00 Test Item Value Reference Range Interpretation Comments Fibrinogen (test code 402 mg/dL 175-425 = 3255-7) SARAH (test code = SARAH) FASTING:YES FASTING: YES RAC (test code = RAC) Performing Organization Information: Site ID: [facility]GA Name: [facility] Address: [address] [place] [phone] Director: Pastor Main [facility] CenterPartial thromboplastin time, [id number] 09:13:00 Test Item Value Reference Interpretation Comments Range PTT (test See_Comment This test has not been code = [place] [address]-5) monitoringunfra ctionated heparin therapy . For testing thatis validate d for this type of therapy , please referto the Hep jayden Anti-Xa assay ([place] [address]). For additional info rmation, please refer [email or web address] ion.Farmol/faq/ MSB101(This link is being p rovided for informational/e ducational purposes only.) [Automated message] The sy stem which generated this result transmitted ref erence range: 23 - 32 sec. Th e reference range was not u sed to interpret this result as normal/abnormal . SARAH (test FASTING:YES code = FASTING: YES SARAH) RAC (test Performing code = Organization RAC) Information: Site ID: [facility] Address: [address] [place] [phone] Director: Sebastian Reymundo [facility]
[2021-10-03 13:38] LABS: Protime INR 1.03
[2021-10-03 13:40] LABS: Absolute Lymphocytes (CBC) 1.7 K/uL (0.7-4.9); Lymphocytes % 17.6 % (15.3-44.8); MPV 10.9 fL (7.6-11.3); RBC Red Blood Cell Count 5.22 M/uL (3.86-4.86)
--- NOTE | 2021-10-03 13:41 | RAD REPORT ---
EXAM DESCRIPTION: CT - Head Brain Wo Cont - 10/03/2021 1:34 pm CLINICAL HISTORY: Mental status change, unknown cause Headache, drowsiness COMPARISON: Head angio dated 09/10/2021; CT HEAD BRAIN WWO CONTRAST dated 01/27/2008 TECHNIQUE: All CT scans are performed using dose optimization technique as appropriate and may inclu de automated exposure control or mA/KV adjustment according to patient size. FINDINGS: No intracranial hemorrhage, hydrocephalus or extra-axial fluid collection.Moderate brain a trophy is present. Area gliosis is seen in the right cerebellar hemispheres.No areas of brain edema o r evidence of midline shift. The paranasal sinuses and mastoids are clear. The calvarium is intact. IMPRESSION: No acute intracranial abnormality.
[2021-10-03 14:10] LABS: Bilirubin Direct 0.2 mg/dL (0-0.2); Bilirubin Total 0.5 mg/dL (0.2-1.0); Protein, Total 9.1 g/dL (6.4-8.2)
[2021-10-03 14:28] LABS: Magnesium 1.9 mg/dL (1.8-2.4); Potassium 3.8 mmol/L (3.5-5.1)
--- NOTE | 2021-10-03 14:33 | RAD REPORT ---
EXAM DESCRIPTION: RAD - Chest Single View - 10/03/2021 2:19 pm CLINICAL HISTORY: altered mental status Chest pain. COMPARISON: Chest Single View dated 09/10/2021; Chest Pa And Lat (2 Views) dated 08/17/2017; CHEST PA AND LAT 2 VIEW dated 02/23/2008 FINDINGS: Portable technique limits examination quality. The lungs are grossly clear. The heart is normal in size. No displaced fractures. IMPRESSION: No acute intrathoracic process suspected.
[2021-10-03] MEDS ORDERED: NA CHLORIDE 0.9% 1,000 ML ONE (15:04)
[2021-10-03] MEDS ORDERED: MORPHINE 4 MG/ML SYR ONE (16:10)
[2021-10-03] MEDS ORDERED: FAMOTIDINE 20 MG/2 ML VIAL IV ONE (16:11)
[2021-10-03] MEDS ORDERED: ONDANSETRON 4 MG/2 ML VIAL ONE (16:11)
[2021-10-03 16:30] LABS: Urine Blood Negative (Negative); Urine Glucose Negative (Negative); Urine Protein 2+ (Negative); Urine pH 6.5 (5.0-7.0)
[2021-10-03 16:49] LABS: Urine Bacteria <20 /HPF (<20); Urine RBC <5 /HPF (NONE SEEN); Urine Urothelial Cells <5 /HPF (NONE SEEN)
[2021-10-03 16:50] LABS: Phencyclidine NEGATIVE (NEGATIVE)
[2021-10-03 16:51] LABS: Barbiturates NEGATIVE (NEGATIVE); Benzodiazepines NEGATIVE (NEGATIVE); Cocaine NEGATIVE (NEGATIVE); METHAMPHETAM NEGATIVE (NEGATIVE); Methadone NEGATIVE (NEGATIVE); Opiates NEGATIVE (NEGATIVE); THC Cannibis NEGATIVE (NEGATIVE)
--- NOTE | 2021-10-03 17:18 | RAD REPORT ---
EXAM DESCRIPTION: CTAbdomen Pelvis W Contrast - 10/03/2021 5:10 pm CLINICAL HISTORY: Abdominal pain. Epigastric pain COMPARISON: No comparisons TECHNIQUE: Biphasic CT imaging of the abdomen and pelvis was performed with 100 ml non-ionic IV cont rast. All CT scans are performed using dose optimization technique as appropriate and may include automated exposure control or mA/KV adjustment according to patient size. FINDINGS: The lung bases are clear. The liver demonstrates cirrhotic nodularity with fatty infiltration. Spleen, pancreas, adrenal glands and kidneys are within normal limits. Cholecystectomy clips. No bowel obstruction, free air, free fluid or abscess. The appendix is normal. No evidence of signi ficant lymphadenopathy. No suspicious bony findings. IMPRESSION: Mild liver cirrhosis.
[2021-10-03] MEDS ORDERED: MAGNES/ALUMIN/SIMET 30ML UCUP ONE (18:18)
[2021-10-03] MEDS ORDERED: LIDOCAINE VISCOUS 2% SOLN 15 ML UDC ONE (18:18)
--- NOTE | 2021-10-03 18:50 | ER ---
Nurse's Notes [facility] Name: Mary Valverde Age: 61 yrs Sex: Female : 1960 Arrival Date: 10/03/2021 Time: 11:50 Bed 18 Private MD: Diagnosis: Nausea with vomiting, unspecified;Weakness-generalized;Epigastric abdominal tenderness Presentation: 10/03 11:51 Chief complaint: EMS states: family called due to patient not feeling well for the past aa5 few days and not taking her home medications. Has been seeing DR Alfonso and is waiting to see if is being dx of En's Encephalopathy; NV x 2 days and headache and dizziness; daughter states pt has had incontinence of BM. Care prior to arrival: Glucose check: 223. 11:51 Method Of Arrival: EMS: [facility] aa5 12:21 Coronavirus screen: Vaccine status: Patient reports receiving the 2nd dose of the covid vg1 vaccine. Client denies travel out of the [place] in the last 14 days. Ebola Screen: Patient denies exposure to infectious person. Patient denies travel to an Ebola-affected area in the 21 days before illness onset. Initial Sepsis Screen: Does the patient meet any 2 criteria? No. Patient's initial sepsis screen is negative. Does the patient have a suspected source of infection? No. Patient's initial sepsis screen is negative. Risk Assessment: Do you want to hurt yourself or someone else? Patient reports no desire to harm self or others. Onset of symptoms was October 01, 2021. 12:21 Acuity: MAMIE 3 vg1 Triage Assessment: 12:21 General: Appears ill, Behavior is drowsy. Pain: Complains of pain in head Pain vg1 currently is 10 out of 10 on a pain scale. Pain began 2-3 days ago. Neuro: Level of Consciousness is awake, alert, obeys commands, Oriented to person, place, Reports dizziness, headache. 12:21 GI: Reports nausea, vomiting. vg1 Historical: - Allergies: 12:19 Latex, Natural Rubber; vg1 - Home Meds: 12:19 Albuterol Inhl [Active]; Azithromycin Oral [Active]; citalopram 20 mg tab [Active]; vg1 fluconazole 200 mg Oral tab [Active]; hydrochlorothiazide 25 mg Oral tab 1 tab once daily [Active]; levothyroxine 50 mcg cap 1 cap once daily [Active]; metoclopramide HCl 5 mg Oral tab [Active]; morphine 15 mg Oral TR12 [Active]; nitrofurantoin macrocrystal 100 mg Oral cap [Active]; Oxybutynin Chloride Oral [Active]; prazosin 1 mg Oral cap [Active]; pregabalin 100 mg Oral cap [Active]; tizanidine 4 mg Oral cap [Active]; ursodiol 300 mg Oral cap [Active]; verio FL one touch kit [Active]; Xifaxan 550 mg Oral tab 1 tab 2 times per day [Active]; omeprazole Oral [Active]; - PMHx: 11:52 Diabetes mellitus; Hypertensive disorder; Non-alcoholic cirrhosis of liver; aa5 12:26 Stroke; Depressive disorder; Anxiety; Hiatal Hernia; Neuropathy; vg1 - PSHx: 12:26 Cholecystectomy; vg1 - Immunization history:: Client reports receiving the 2nd dose of the Covid vaccine. - Social history:: Smoking status: Patient reports the use of cigarette tobacco products, smokes one-half pack cigarettes per day. Screenin:05 Abuse screen: Denies threats or abuse. Denies injuries from another. Nutritional ww screening: No deficits noted. Tuberculosis screening: No symptoms or risk factors identified. 19:16 Fall Risk None identified. priscilla Assessment: 16:05 General: Appears uncomfortable, Behavior is agitated. Neuro: Level of Consciousness is ww awake, alert, obeys commands, confused, Oriented to person, place. Cardiovascular: Capillary refill < 3 seconds Patient's skin is warm and dry. Respiratory: Airway is patent Respiratory effort is even, unlabored, Respiratory pattern is regular, symmetrical. GI: Abdomen is round bruising noted to lower abdomen. Derm: Skin is intact. 17:26 Reassessment: Patient appears in no apparent distress at this time. No changes from ww previously documented assessment. Patient and/or family updated on plan of care and expected duration. Pain level reassessed. 18:45 Reassessment: Patient appears in no apparent distress at this time. Patient and/or ww family updated on plan of care and expected duration. Pain level reassessed. Patient is alert, oriented x 3, equal unlabored respirations, skin warm/dry/pink. tolerated ice chips, water and GI cocktail Patient states feeling better. 19:15 Reassessment: Patient appears in no apparent distress at this time. I recv'd report on priscilla the pt in room #18. She is to be dc'd home. Her daughters are at bedside. She is in NAD. Vital Signs: 12:21 BP 150 / 69; Pulse 88; Resp 16; Temp 98.1(O); Pulse Ox 97% on R/A; Weight 83.91 kg; vg1 Height 5 ft. 5 in. (165.10 cm); Pain 10/10; 16:53 BP 155 / 64; Pulse 87; Resp 21; Pulse Ox 99% on R/A; ww 18:45 Pulse 84; Resp 20; Temp 98.9(O); Pulse Ox 97% on R/A; ww 19:16 BP 158 / 55; Pulse 80; Resp 18; Temp 97.3; Pulse Ox 98% on R/A; Pain 0/10; priscilla 12:21 Body Mass Index 30.79 (83.91 kg, 165.10 cm) vg1 ED Course: 11:50 Patient arrived in ED. aa5 12:15 Percy Barrios PA is PHCP. cp 12:15 Jareth Barnett MD is Attending Physician. cp 12:26 Triage completed. vg1 12:26 Arm band placed on. vg1 13:12 Inserted saline lock: 20 gauge in right in left forearm, using aseptic technique. eh3 13:36 CT Head Brain wo Cont In Process Unspecified. EDMS 14:21 XRAY Chest (1 view) In Process Unspecified. EDMS 15:03 Jessa Chan, RN is Primary Nurse. ww 15:07 EKG done, by ED staff. eh3 16:05 Patient has correct armband on for positive identification. Bed in low position. Call ww light in reach. Side rails up X2. Adult w/ patient. Client placed on continuous cardiac and pulse oximetry monitoring. NIBP monitoring applied. 16:31 Urine collected: straight cath specimen, tea colored, Amount Returned: 30mL. eh3 16:33 Straight cath inserted, using sterile technique, 16 Fr. Specimen obtained. Patient eh3 tolerated. 16:34 Urine Microscopic Only Sent. eh3 17:12 CT Abd/Pelvis - IV Contrast Only In Process Unspecified. EDMS 19:15 No provider procedures requiring assistance completed. priscilla 19:16 Primary Nurse role handed off by Jessa Chan RN mw2 19:17 intact, bleeding controlled, No redness/swelling at site. Pressure dressing applied. priscilla 19:37 Ly Pimentel, RN is Primary Nurse. priscilla Administered Medications: 15:40 Drug: NS 0.9% 1000 ml Route: IV; Rate: 1 calculated rate; Site: left forearm; ww 16:08 Drug: Pepcid (famotidine) 20 mg Route: IVP; Site: right forearm; ww 16:10 Drug: Zofran (Ondansetron) 4 mg Route: IVP; Site: right forearm; ww 16:13 Drug: morphine 4 mg Route: IVP; Site: right forearm; ww 18:21 Drug: GI Cocktail without - (Maalox Suspension 30 ml, Lidocaine Liquid 2 % 15 ww ml) Route: PO; Medication: 16:05 VIS not applicable for this client. ww Outcome: 18:49 Discharge ordered by MD. cp 19:16 Condition: stable priscilla 19:17 Discharged to home via wheelchair, with family. priscilla 19:17 Discharge instructions given to patient, Instructed on discharge instructions, follow priscilla up and referral plans. medication usage, Demonstrated understanding of instructions, follow-up care, medications, Prescriptions given X 2. 19:37 Patient left the ED. priscilla Signatures: Dispatcher [employer] EDMS Samantha Perry RN RN aa5 Percy Barrios PA PA Ethan Juarez mw2 Junie Willingham RN RN 1 Ly Pimentel RN RN bo Wood, Whitney, RN RN [facility] Corrections: (The following items were deleted from the chart) 12:19 11:51 Chief complaint: EMS states: family called due to patient not feeling well for vg1 the past few days and not taking her home medications. aa5 14:25 14:23 Inserted saline lock: 20 gauge in right forearm, using aseptic technique. 3 3 15:38 13:12 Inserted saline lock: 20 gauge in right forearm, using aseptic technique. 3 3
--- NOTE | 2021-10-03 18:50 | EDPHYS ---
Physician Documentation [facility] Name: Mary Valverde Age: 61 yrs Sex: Female : 1960 Arrival Date: 10/03/2021 Time: 11:50 Bed 18 Private MD: ED Physician Jareth Barnett HPI: 10/03 12:45 This 61 yrs old Female presents to ER via EMS with complaints of Doesn't Feel Right. cp 12:45 The patient presents with reports she doesn't feel right. cp 12:45 Onset: The symptoms/episode began/occurred today. cp 12:45 Possible causes: history of liver disease. cp 12:45 Associated signs and symptoms: Pertinent positives: abdominal pain, nausea, vomiting, cp Pertinent negatives: chest pain, confusion, diarrhea, headache, fever. Current symptoms: In the emergency department the patient's symptoms are unchanged from the initial presentation, despite home interventions. Patient's baseline: Neuro: alert and fully oriented, Motor: no deficits, Ambulation: walks with assist only, Speech: normal. Historical: - Allergies: 12:19 Latex, Natural Rubber; vg1 - Home Meds: 12:19 Albuterol Inhl [Active]; Azithromycin Oral [Active]; citalopram 20 mg tab [Active]; vg1 fluconazole 200 mg Oral tab [Active]; hydrochlorothiazide 25 mg Oral tab 1 tab once daily [Active]; levothyroxine 50 mcg cap 1 cap once daily [Active]; metoclopramide HCl 5 mg Oral tab [Active]; morphine 15 mg Oral TR12 [Active]; nitrofurantoin macrocrystal 100 mg Oral cap [Active]; Oxybutynin Chloride Oral [Active]; prazosin 1 mg Oral cap [Active]; pregabalin 100 mg Oral cap [Active]; tizanidine 4 mg Oral cap [Active]; ursodiol 300 mg Oral cap [Active]; verio FL one touch kit [Active]; Xifaxan 550 mg Oral tab 1 tab 2 times per day [Active]; omeprazole Oral [Active]; - PMHx: 11:52 Diabetes mellitus; Hypertensive disorder; Non-alcoholic cirrhosis of liver; aa5 12:26 Stroke; Depressive disorder; Anxiety; Hiatal Hernia; Neuropathy; vg1 - PSHx: 12:26 Cholecystectomy; vg1 - Immunization history:: Client reports receiving the 2nd dose of the Covid vaccine. - Social history:: Smoking status: Patient reports the use of cigarette tobacco products, smokes one-half pack cigarettes per day. ROS: 12:50 Abdomen/GI: Positive for abdominal pain, nausea and vomiting, anorexia, Negative for cp diarrhea, constipation, hematemesis, black/tarry stool, rectal bleeding. 12:50 Eyes: Negative for injury, pain, redness, and discharge. cp 12:50 Constitutional: Positive for poor PO intake, Negative for body aches, chills, fever. 12:50 ENT: Negative for drainage from ear(s), ear pain, sore throat, difficulty swallowing, difficulty handling secretions. 12:50 Cardiovascular: Negative for chest pain, edema, palpitations. 12:50 Respiratory: Negative for cough, shortness of breath, wheezing. 12:50 Back: Negative for pain at rest, pain with movement. 12:50 : Negative for urinary symptoms. 12:50 Neuro: Positive for weakness, Negative for headache. 12:50 All other systems are negative. Exam: 12:55 Constitutional: The patient appears in no acute distress, alert, awake, cp non-diaphoretic, non-toxic, well developed, well nourished, uncomfortable. 12:55 Head/Face: Normocephalic, atraumatic. cp 12:55 Eyes: Periorbital structures: appear normal, Pupils: equal, round, and reactive to light and accomodation, Extraocular movements: intact throughout, Conjunctiva: normal, no exudate, no injection, Sclera: no appreciated abnormality, Lids and lashes: appear normal, bilaterally. 12:55 ENT: External ear(s): are unremarkable, Nose: is normal, Mouth: Lips: moist, Oral mucosa: pink and intact, moist, Posterior pharynx: Airway: no evidence of obstruction, patent. 12:55 Neck: ROM/movement: is normal, is supple, without pain, no range of motions limitations, no meningismus. 12:55 Chest/axilla: Inspection: normal, Palpation: is normal, no crepitus, no tenderness. 12:55 Cardiovascular: Rate: normal, Rhythm: regular, Edema: is not appreciated, JVD: is not appreciated. 12:55 Respiratory: the patient does not display signs of respiratory distress, Respirations: normal, no use of accessory muscles, no retractions, labored breathing, is not present, Breath sounds: are clear throughout, no decreased breath sounds, no stridor, no wheezing. 12:55 Abdomen/GI: Inspection: abdomen appears normal, Bowel sounds: active, all quadrants, Palpation: soft, in all quadrants, mild abdominal tenderness, in the epigastric area, rebound tenderness, is not appreciated, involuntary guarding, is not appreciated. 12:55 Back: CVA tenderness, is absent. 12:55 Musculoskeletal/extremity: Extremities: noted in the right leg: below the knee amputation. 12:55 Skin: cellulitis, is not appreciated, no rash present. 12:55 Neuro: Orientation: to person, place \T\ time. Mentation: able to follow commands, slow to respond, Motor: moves all fours, strength is normal, Sensation: no obvious gross deficits. 15:18 ECG was reviewed by the Attending Physician. cp Vital Signs: 12:21 BP 150 / 69; Pulse 88; Resp 16; Temp 98.1(O); Pulse Ox 97% on R/A; Weight 83.91 kg; vg1 Height 5 ft. 5 in. (165.10 cm); Pain 10/10; 16:53 BP 155 / 64; Pulse 87; Resp 21; Pulse Ox 99% on R/A; ww 18:45 Pulse 84; Resp 20; Temp 98.9(O); Pulse Ox 97% on R/A; ww 19:16 BP 158 / 55; Pulse 80; Resp 18; Temp 97.3; Pulse Ox 98% on R/A; Pain 0/10; priscilla 12:21 Body Mass Index 30.79 (83.91 kg, 165.10 cm) vg1 MDM: 15:00 Patient medically screened. cp 18:49 Data reviewed: vital signs, nurses notes, lab test result(s), EKG, radiologic studies, cp CT scan, plain films. 18:49 Test interpretation: by ED physician or midlevel provider: ECG, plain radiologic cp studies. Counseling: I had a detailed discussion with the patient and/or guardian regarding: the historical points, exam findings, and any diagnostic results supporting the discharge/admit diagnosis, lab results, radiology results, to return to the emergency department if symptoms worsen or persist or if there are any questions or concerns that arise at home. Response to treatment: the patient's symptoms have markedly improved after treatment, patient is well hydrated. VSS. Nausea and pain improved, vomiting resolved. Patient tolerating po fluids. Will discharge to home for continued monitoring. 10/03 12:42 Order name: Urine Microscopic Only; Complete Time: 16:56 cp 10/03 16:56 Interpretation: Reviewed. 10/03 12:42 Order name: Basic Metabolic Panel; Complete Time: 14:44 cp 10/03 14:44 Interpretation: Normal except: GLUC 167; GFR 71. cp 10/03 12:42 Order name: CBC with Diff; Complete Time: 14:44 cp 10/03 14:44 Interpretation: Normal except: RBC 5.22. cp 10/03 12:42 Order name: LFT's; Complete Time: 14:44 cp 10/03 18:20 Interpretation: Normal except: ALK 199; TP 9.1; ALB 3.0; GLOB 6.1; A/G 0.5. 10/03 12:42 Order name: Magnesium; Complete Time: 14:44 cp 10/03 12:42 Order name: NT PRO-BNP; Complete Time: 14:44 cp 10/03 18:20 Interpretation: NT PRO-BNP 1983; Reviewed. 10/03 12:42 Order name: PT-INR; Complete Time: 14:44 cp 10/03 12:42 Order name: Troponin HS; Complete Time: 14:44 cp 10/03 18:21 Interpretation: Reviewed. 10/03 12:42 Order name: Procalcitonin; Complete Time: 16:08 cp 10/03 12:42 Order name: Lactate; Complete Time: 14:44 cp 10/03 12:42 Order name: Blood Culture Adult (2) cp 10/03 12:44 Order name: AMMONIA; Complete Time: 14:44 cp 10/03 14:45 Interpretation: DALY < 15; Reviewed. cp 10/03 14:46 Order name: UDS; Complete Time: 16:56 cp 10/03 16:31 Order name: Urine Dipstick-Ancillary; Complete Time: 16:43 EDMS 10/03 18:20 Interpretation: Normal except: UKET Trace; UPROT 2+. cp 10/03 12:42 Order name: CT Head Brain wo Cont; Complete Time: 14:44 cp 10/03 14:45 Interpretation: Report reviewed. 10/03 12:42 Order name: Urine Dipstick-Ancillary (obtain specimen); Complete Time: 16:14 10/03 12:42 Order name: XRAY Chest (1 view); Complete Time: 14:44 10/03 12:42 Order name: EKG; Complete Time: 12:43 10/03 12:42 Order name: Cardiac monitoring; Complete Time: 15:04 10/03 12:42 Order name: EKG - Nurse/Tech; Complete Time: 15:07 10/03 12:42 Order name: IV Saline Lock; Complete Time: 14:22 10/03 12:42 Order name: Labs collected and sent; Complete Time: 14:22 10/03 12:42 Order name: O2 Per Protocol; Complete Time: 15:04 10/03 12:42 Order name: O2 Sat Monitoring; Complete Time: 15:04 10/03 16:45 Order name: CT Abd/Pelvis - IV Contrast Only; Complete Time: 17:19 10/03 17:19 Interpretation: Report reviewed. 10/03 14:46 Order name: Cath; Complete Time: 16:14 10/03 17:20 Order name: PO challenge; Complete Time: 18:08 cp EC:18 Rate is 82 beats/min. Rhythm is regular. ME interval is normal. QRS interval is normal. cp QT interval is normal. T waves are Inverted in leads aVR, V2. Interpreted by me. Reviewed by me. Administered Medications: 15:40 Drug: NS 0.9% 1000 ml Route: IV; Rate: 1 calculated rate; Site: left forearm; ww 16:08 Drug: Pepcid (famotidine) 20 mg Route: IVP; Site: right forearm; ww 16:10 Drug: Zofran (Ondansetron) 4 mg Route: IVP; Site: right forearm; ww 16:13 Drug: morphine 4 mg Route: IVP; Site: right forearm; ww 18:21 Drug: GI Cocktail without - (Maalox Suspension 30 ml, Lidocaine Liquid 2 % 15 ww ml) Route: PO; Disposition Summary: 10/03/21 18:49 Discharge Ordered Location: Home cp Problem: new cp Symptoms: have improved cp Condition: Stable cp Diagnosis - Nausea with vomiting, unspecified cp - Weakness - generalized cp - Epigastric abdominal tenderness cp Followup: cp - With: Private Physician - When: 2 - 3 days - Reason: Recheck today's complaints Discharge Instructions: - Discharge Summary Sheet cp - Abdominal Pain, Adult cp - Nausea and Vomiting, Adult cp - Weakness cp - Dehydration, Adult cp Forms: - Medication Reconciliation Form cp - Thank You Letter cp - Antibiotic Education cp - Prescription Opioid Use cp Prescriptions: - Zofran 4 mg Oral Tablet - take 1 tablet by ORAL route every 12 hours As needed; 20 tablet; Refills: 0, cp Product Selection Permitted - promethazine 25 mg Oral Tablet - take 1 tablet by ORAL route every 6 hours As needed; 20 tablet; Refills: 0, cp Product Selection Permitted Signatures: Dispatcher [employer] Samantha Little RN RN aa5 Ed Castillo, NOODLE MAKER-C NOODLE MAKER-Cla1 Percy Barrios PA PA cp Garcia, Victoria RN RN vg1 Jessa Chan RN RN ww
[2021-10-04 12:44] VITALS: BP 158/55; TEMP 97.3; O2SAT 98
--- NOTE | 2021-10-06 10:08 | EKG ---
Test Date: 2021-10-03 Test Time: 15:15:06 Airline Reservation Agent: JUDI MEASUREMENT RESULTS: Intervals: Rate: 82 PA: 142 QRSD: 76 QT: 368 QTc: 429 [place]: P: 73 PA: 142 QRS: 17 T: 53 INTERPRETIVE STATEMENTS: Normal sinus rhythm Right atrial enlargement Nonspecific T wave abnormality Abnormal ECG Compared to ECG 10/03/2021 15:14:39 No significant changes Electronically Signed On 10-06-21 10:03:04 CDT by Vazquez Ford
--- NOTE | 2021-10-06 10:09 | EKG ---
Test Date: 2021-10-03 Test Time: 15:14:39 Dental Laboratory Manager: JUDI MEASUREMENT RESULTS: Intervals: Rate: 86 NM: 148 QRSD: 56 QT: 364 QTc: 435 [place]: P: 77 NM: 148 QRS: 43 T: 56 INTERPRETIVE STATEMENTS: Normal sinus rhythm Right atrial enlargement Nonspecific T wave abnormality Abnormal ECG Compared to ECG 09/11/2021 04:14:30 Atrial abnormality now present T-wave abnormality now present Electronically Signed On 10-06-21 10:03:05 CDT by Vazquez Ford
== END 2021-10-03 19:37 | disposition home or self-care (01) ==
LOC: ER 11:49
DX: R11.2 Nausea with vomiting, unspecified (principal); R53.1 Weakness; K74.60 Unspecified cirrhosis of liver; E11.9 Type 2 diabetes mellitus without complications; I10 Essential (primary) hypertension; Z91.040 Latex allergy status; Z91.048 Other nonmedicinal substance allergy status
CPT/HCPCS: 93005 ×2; 87040 ×2; 85025; 80048; 36415; 82140; 83735; 85610; 80076; 83605; 84484; 84145; 83880; 80307; 70450; 74177; 71045; 51702; 96375; 96374; 99284; Q9967; J7030; J2405; J3490; 81003; 81015

== ENCOUNTER 2021-10-19 10:10 | Inpatient (IN) | payer OTHER ==
[2021-10-19 11:05] LABS: Blood Gas Oxyhemoglobin 81.7 % (94-97); Blood O2 Saturation 84.4 % (92-98.5)
[2021-10-19 11:28] LABS: Absolute Lymphocytes (CBC) 3.2 K/uL (0.7-4.9); Hematocrit 43.8 % (36.0-45.0); Lymphocytes % 14.7 % (15.3-44.8); MPV 10.6 fL (7.6-11.3)
--- NOTE | 2021-10-19 11:40 | RAD REPORT ---
EXAM DESCRIPTION: RAD - Chest Single View - 10/19/2021 11:08 am CLINICAL HISTORY: SOB Chest pain. COMPARISON: Chest Single View dated 10/03/2021; Chest Single View dated 09/10/2021; Chest Pa And Lat ( 2 Views) dated 08/17/2017; CHEST PA AND LAT 2 VIEW dated 02/23/2008 FINDINGS: Portable technique limits examination quality. Moderate bilateral pulmonary opacities are noted likely representing pulmonary edema. The heart is mo derately enlarged. No displaced fractures. IMPRESSION: Mild to moderate CHF.
[2021-10-19] MEDS ORDERED: CEFEPIME 2 GM VIAL ONE (11:56)
[2021-10-19] MEDS ORDERED: FUROSEMIDE 40 MG/4 ML VIAL ONE (11:56)
[2021-10-19] MEDS ORDERED: NA CHLORIDE 0.9% 0 ML ONE (11:56)
[2021-10-19 12:00] LABS: Protime INR 0.98
[2021-10-19 12:17] LABS: Albumin 2.7 g/dL (3.4-5.0); Bilirubin Direct 0.2 mg/dL (0-0.2); Bilirubin Total 0.4 mg/dL (0.2-1.0); Magnesium 3.1 mg/dL (1.8-2.4); Potassium 4.8 mmol/L (3.5-5.1)
[2021-10-19 12:28] LABS: Platelet Estimate ADEQ
[2021-10-19 12:31] LABS: Anisocytosis 1+; Blood Morphology Comment NOTED (NOT SEEN); Polychromasia 1+
[2021-10-19 13:12] LABS: Urine Blood Negative (Negative); Urine Glucose Negative (Negative); Urine Protein 1+ (Negative); Urine Specific Gravity 1.025 (1.005-1.030); Urine pH 5.5 (5.0-7.0)
[2021-10-19 13:28] LABS: Calcium Oxalate Crystals- Ur PRESENT (NONE SEEN); Urine Amorphous Sediment 1+ /HPF (NONE SEEN); Urine Bacteria 20-50 /HPF (<20); Urine Mucus MOD /HPF (NONE SEEN); Urine RBC <5 /HPF (NONE SEEN)
[2021-10-19 13:29] LABS: Urine Coarse Granular Casts 0-5 /LPF (NONE SEEN)
[2021-10-19 13:39] LABS: Barbiturates NEGATIVE (NEGATIVE); Benzodiazepines NEGATIVE (NEGATIVE); Cocaine NEGATIVE (NEGATIVE); METHAMPHETAM NEGATIVE (NEGATIVE); Methadone NEGATIVE (NEGATIVE); Opiates POSITIVE (NEGATIVE); Phencyclidine NEGATIVE (NEGATIVE); THC Cannibis NEGATIVE (NEGATIVE)
--- NOTE | 2021-10-19 13:40 | RAD REPORT ---
EXAM DESCRIPTION: CT - Head C Spine Cap Wo Con - 10/19/2021 1:26 pm CLINICAL HISTORY: Trauma, head and neck injury. Chest, abdomen and pelvis pain. Mental status change, unknown cause COMPARISON: Head Brain Wo Cont dated 10/03/2021 TECHNIQUE: CT head without contrast. CT cervical spine without contrast with coronal and sagittal reformatted images. CT chest, abdomen and pelvis without contrast with coronal and sagittal reformatted images of the spi ne. All CT scans are performed using dose optimization technique as appropriate and may include automated exposure control or mA/KV adjustment according to patient size. FINDINGS: CT HEAD WITHOUT CONTRAST: No intracranial hemorrhage, hydrocephalus or extra-axial fluid collection. 2 cm area of gliosis in th e right cerebellum is unchanged and likely related to remote infarct. No areas of brain edema or midl ine shift. The paranasal sinuses and mastoids are clear. The calvarium is intact. CT CERVICAL SPINE WITHOUT CONTRAST: No fracture or subluxation. Moderate lower cervical degenerative changes. The prevertebral soft tissu es are normal in thickness. CT CHEST, ABDOMEN, PELVIS WITHOUT CONTRAST: NOTE: Lack of contrast is a significant limitation in the assessment of trauma related findings. Spec ifically, solid organ, vascular and bowel evaluation is significantly limited. Prominent emphysematous changes are seen with opacities in both posterior lung bases likely represent ing atelectasis.No pneumothorax or pericardial/pleural fluid. No evidence of intra-abdominal visceral injury, free fluid or free air is seen within the above detai led limitations. Cholecystectomy clips. No concerning pelvic findings. No fractures. Moderate lumbosacral degenerative changes are seen. IMPRESSION: No acute process is identified.
[2021-10-19] MEDS ORDERED: NA CHLORIDE 0.9% 100 ML ONE (14:09)
[2021-10-19] MEDS ORDERED: AZITHROMYCIN 500 MG INJ IVPB ONE (14:09)
[2021-10-19] MEDS ORDERED: NA CHLORIDE 0.9% 250 ML ONE ×3 (14:11→20:56)
--- NOTE | 2021-10-19 14:18 | P.HP ---
Certification for Inpatient With expected LOS: >2 Midnights Patient will require the following post-hospital care: None Practitioner: I am a practitioner with admitting privileges, knowledge of patient current condition, hospital course, and medical plan of care. Services: Services provided to patient in accordance with Admission requirements found in Title 42 Section 412.3 of the Code of Federal Regulations Patient History Date of Service: 10/19/21 Reason for admission: Altered mental status History of Present Illness: 62-year-old female with history of nonalcoholic liver cirrhosis, diabetes mellitus, hypertension, status post right BKA, recently diagnosed presumed En thyroiditis, recurrent UTIs, recent hospitalization for altered mental status with improvement in symptoms after started on IV steroids; develop change in mental status with increasing drowsiness and intermittent checks since the last 3 days. Spouse states patient was unable to hold a cup to her mouth. He has been giving her medication since then. Her drowsiness continue to worsen. She has developed loss of appetite and inability to take p.o. since the last 2 days. On arrival to EMS she was noted with O2 sats in the 75% on room air and was started on nonrebreather mask. On arrival in the ED she was placed on high flow nasal cannula O2 requiring up to 40 L now. She is still significantly drowsy. Her blood pressure was systolic was 80 but improved with 1 L bolus to 120s but now systolic blood pressure has dropped to 60/37. Patient is very drowsy unable to stay awake to answer questions. She is able to answer few yes or no but not consistent. Daughter at bedside helping with history. Denies any new medication changes. Denies any fever. He had a 7.3, up from prior baseline of 0.83 weeks ago. VBG shows pH of 7.28 with PCO2 of 54. WBC is elevated at 22K with 3% bands. Urinalysis shows UTI. CT of the abdomen and pelvics is normal Allergies latex Allergy (Verified 09/11/21 02:23) Rash Home Medications: Ascorbic Acid [Vitamin C*] 500 mg PO DAILY 08/23/17 Cholecalciferol (Vitamin D3) [Vitamin D 1000 Iu Tab*] 1,000 unit PO DAILY 08/23/17 Citalopram Hydrobromide [Citalopram HBr] 20 mg PO BEDTIME 08/23/17 Insulin Glargine,Hum.rec.anlog [Lantus] 0 unit SQ DAILY 08/23/17 L.acidoph,Paracasei, B.lactis [Probiotic] 3 each PO DAILY 08/23/17 Levothyroxine [Synthroid*] 88 mcg PO [id number] 08/23/17 Montelukast [Singulair*] 10 mg PO DAILY 08/23/17 Multivitamin [Multivitamins] 1 each PO DAILY 08/23/17 Omeprazole 60 mg PO DAILY 08/23/17 Oxybutynin Chloride [Ditropan*] 5 mg PO BID 08/23/17 Pioglitazone HCl 15 mg PO DAILY 08/23/17 Rifaximin [Xifaxan] 550 mg PO BID 08/23/17 Vitamin B Complex [B Complex] 1 each PO DAILY 08/23/17 hydroCHLOROthiazide [Hydrochlorothiazide*] 25 mg PO DAILY 08/23/17 Lactulose 15 gm PO BID 09/11/21 Lisinopril [Zestril] 2.5 mg PO DAILY 09/11/21 Morphine *Extended Release* [MS Contin*] 15 mg PO BID 09/11/21 Prazosin HCl 1 mg PO BEDTIME 09/11/21 Pregabalin 100 mg PO TID 09/11/21 buPROPion HCL [Bupropion HCl Sr] 100 mg PO DAILY 09/11/21 ursodioL [Ursodiol] 600 mg PO BID 09/11/21 Amlodipine [Norvasc*] 10 mg PO DAILY #30 tab 09/15/21 Aspirin [Aspirin EC 81 MG] 81 mg PO DAILY #30 tablet. 09/15/21 Bupropion *Xl* [Wellbutrin XL*] 150 mg PO DAILY #30 tab 09/15/21 predniSONE [Deltasone*] 10 mg PO DAILY #30 tab 09/15/21 - Past Medical/Surgical History Diabetic: Yes -: Type 2 qiohcnilwsp-ypymims-[id number] -: Nonalcoholic cirrhosis -: Hypothyroidism -: COPD -: Hypertension -: CKD -: Cholecystectomy -: Right BKA Psychosocial/ Personal History: Patient lives at home with her . - Family History Mother -: Cancer - Social History Smoking Status: Current every day smoker Smoking therapy provided: Yes Alcohol use: No CD- Drugs: Yes Caffeine use: No Place of Residence: Home Review of Systems is unable to be obtained Physical Examination - Physical Exam General: Moderate distress, Confused, Delirious, Obese HEENT: Atraumatic, Normocephalic Neck: Supple, 2+ carotid pulse no bruit, JVD not distended Respiratory: Normal air movement, Diminished Cardiovascular: No edema, Normal pulses, Regular rate/rhythm, Normal S1 S2 Gastrointestinal: Normal bowel sounds, Soft and benign, Non-distended Musculoskeletal: No clubbing, No swelling, Other (right BKA) Integumentary: No breakdown, No significant lesion Neurological: Sensation intact, Cranial nerves 3-12 intact, Other (intermittent jerking movements ), Abnormal speech - Studies Laboratory Data (last 24 hrs) 10/19/21 11:44: PT 10.8, INR 0.98 10/19/21 11:44: Sodium 134 L, Potassium 4.8, BUN 57 H, Creatinine 7.32 H*, Glucose 173 H, Magnesium 3.1 H D, Total Bilirubin 0.4, AST 54 H, ALT 14, Alkaline Phosphatase 192 H 10/19/21 11:07: WBC 22.1 H*, Hgb 14.3, Hct 43.8, Plt Count 263 Assessment and Plan - Advance Directives Does patient have a Living Will: Yes Does patient have a Durable POA for Healthcare: Yes Physician Review Additional Text: EXAM DESCRIPTION: CT - Head C Spine Cap Wo Con - 10/19/2021 1:26 pm CLINICAL HISTORY: Trauma, head and neck injury. Chest, abdomen and pelvis pain. Mental status change, unknown cause COMPARISON: Head Brain Wo Cont dated 10/03/2021 TECHNIQUE: CT head without contrast. CT cervical spine without contrast with coronal and sagittal reformatted images. CT chest, abdomen and pelvis without contrast with coronal and sagittal reformatted images of the spine. All CT scans are performed using dose optimization technique as appropriate and may include automated exposure control or mA/KV adjustment according to patient size. FINDINGS: CT HEAD WITHOUT CONTRAST: No intracranial hemorrhage, hydrocephalus or extra-axial fluid collection. 2 cm area of gliosis in the right cerebellum is unchanged and likely related to remote infarct. No areas of brain edema or midline shift. The paranasal sinuses and mastoids are clear. The calvarium is intact. CT CERVICAL SPINE WITHOUT CONTRAST: No fracture or subluxation. Moderate lower cervical degenerative changes. The prevertebral soft tissues are normal in thickness. CT CHEST, ABDOMEN, PELVIS WITHOUT CONTRAST: NOTE: Lack of contrast is a significant limitation in the assessment of trauma related findings. Specifically, solid organ, vascular and bowel evaluation is significantly limited. Prominent emphysematous changes are seen with opacities in both posterior lung bases likely representing atelectasis.No pneumothorax or pericardial/pleural fluid. No evidence of intra-abdominal visceral injury, free fluid or free air is seen within the above detailed limitations. Cholecystectomy clips. No concerning pelvic findings. No fractures. Moderate lumbosacral degenerative changes are seen. IMPRESSION: No acute process is identified. Impression Acute metabolic encephalopathy Acute kidney injurymay be due to ATN from hypotension Acute hypoxic respiratory failure Septic shock with hypotensionmay be due to urosepsis UTI Fluid overloadwith elevated BNP Troponin elevationchronic, recent cardiac cath 1 month ago negative for significant CAD Injury Diabetes mellitus History of COPD History of aortic valve stenosisneeds replacement Presumed En thyroiditis Plan We will admit patient to the ICU Will start patient on BiPAP to avoid high flow O2 causing CO2 retention given baseline COPD Start gentle IV fluid for sepsis management despite elevated BNP Continue to monitor troponin Start empiric antibiotics with cefepime/vancomycin CT lung showing nonspecific small baseline opacities worrisome for atelectasis but do antibiotics for presumed pneumonia Obtain blood culture x2 Follow urine culture Will start IV Levophed/pressors to keep blood pressure optimize Start empirical hydrocortisone given recent steroid use for En thyroiditis Strict glycemic control Avoid nephrotoxin Hold further sedativesHome use of baclofen/morphineurine tox showing opioids DuoNebs as needed Advance directive discussed with family they wishes patient is continued on full CODE STATUS Subcutaneous heparin for DVT prophylaxis Time Spent Managing Pts Care (In Minutes): 75
[2021-10-19] MEDS ORDERED: NA CHLORIDE 0.9% 500 ML ONE (14:20)
--- NOTE | 2021-10-19 14:26 | ER ---
Nurse's Notes [facility] Name: Mary Valverde Age: 61 yrs Sex: Female : 1960 Arrival Date: 10/19/2021 Time: 10:14 Bed 4 Private MD: Diagnosis: Altered mental status, unspecified;Other pneumonia, unspecified organism;Acute kidney failure, unspecified;Severe sepsis with septic shock Presentation: 10/19 10:14 Chief complaint: EMS states: "family reported that the pt has been AMS since Wednesday. jd3 today she was very lethargic. today she was hypoxic at 77 % on room air. we got her up to 98 % on a nonrebreather mask. family reported a history of non alcoholic cirrhosis. since we got some oxygen on her she became more alert, but remained AMS. A\\T\\O X 1 to her name.". Coronavirus screen: At this time, the client does not indicate any symptoms associated with coronavirus-19. Ebola Screen: No symptoms or risks identified at this time. Initial Sepsis Screen: Does the patient meet any 2 criteria? No. Patient's initial sepsis screen is negative. Does the patient have a suspected source of infection? No. Patient's initial sepsis screen is negative. Risk Assessment: Do you want to hurt yourself or someone else? Patient reports no desire to harm self or others. Onset of symptoms was October 15, 2021. Care prior to arrival: IV initiated. 20 GA, in the left antecubital area, Glucose check: 285 Oxygen administered. via a non-rebreather mask. 10:14 Method Of Arrival: EMS: [facility] jd3 10:14 Acuity: MAMIE 2 jd3 Historical: - Allergies: 10:18 Latex, Natural Rubber; jd3 - Home Meds: 10:18 Albuterol Inhl [Active]; Azithromycin Oral [Active]; citalopram 20 mg tab [Active]; jd3 fluconazole 200 mg Oral tab [Active]; metoclopramide HCl 5 mg Oral tab [Active]; morphine 15 mg Oral TR12 [Active]; levothyroxine 50 mcg cap 1 cap once daily [Active]; Omeprazole Oral [Active]; Oxybutynin Chloride Oral [Active]; nitrofurantoin macrocrystal 100 mg Oral cap [Active]; prazosin 1 mg Oral cap [Active]; pregabalin 100 mg Oral cap [Active]; hydrochlorothiazide 25 mg Oral tab 1 tab once daily [Active]; verio FL one touch kit [Active]; tizanidine 4 mg Oral cap [Active]; ursodiol 300 mg Oral cap [Active]; Xifaxan 550 mg Oral tab 1 tab 2 times per day [Active]; - PMHx: 10:18 diabetes mellitus; neuropathy; Non-alcoholic cirrhosis of liver; Hypertensive disorder; jd3 stroke; hiatal hernia; depressive disorder; Anxiety; - PSHx: 10:18 Cholecystectomy; jd3 - Immunization history:: Adult Immunizations unknown. - Social history:: Smoking status: unknown. Screenin:09 Abuse screen: Denies threats or abuse. Nutritional screening: No deficits noted. jd3 Tuberculosis screening: No symptoms or risk factors identified. Fall Risk IV access (20 points). Ambulatory Aid- None/Bed Rest/Nurse Assist (0 pts). Gait- Impaired (20 pts.). Mental Status- Overestimates/Forgets Limitations (15 pts.). Total Adams Fall Scale indicates Low Risk Score (25-44 pts). Fall prevention measures have been instituted. Side Rails Up X 2 Placed close to Nursing Station Frequent Obs/Assesments occuring Family Present and informed to notify staff if they need to leave bedside As available Patient and Family Educated on Fall Prevention Program and strategies. Assessment: 10:30 General: Appears distressed, uncomfortable, Behavior is cooperative, appropriate for jl7 age, restless. Pain: Complains of pain in right hip. Neuro: Level of Consciousness is awake, alert, confused, Oriented to person, place, time. Cardiovascular: Patient's skin is warm and dry. Rhythm is regular. Respiratory: Airway is patent Respiratory effort is even, unlabored, shallow, Respiratory pattern is symmetrical, tachypnea. GI: Patient currently denies constipation, diarrhea, nausea, vomiting. : Parent/caregiver report the patient having inability to void since reports pt only able to void a little at a time x 3-4 days. Derm: Skin is pink, warm \\T\\ dry. 14:15 Reassessment: Unable to confirm a solid BP due to uncontrollable jumpy movements, ERP jl7 notified. 19:00 Reassessment: Patient appears in no apparent distress at this time. Patient and/or vc1 family updated on plan of care and expected duration. Pain level reassessed. 20:00 Reassessment: Patient appears in no apparent distress at this time. Patient and/or vc1 family updated on plan of care and expected duration. Pain level reassessed. Vital Signs: 10:17 Pulse 83; Resp 18 S; Temp 98.1(TE); Pulse Ox 98% on Non-rebreather mask; Pain 0/10; jd3 12:02 BP 136 / 89; Pulse 82; Resp 22; Pulse Ox 94% ; jl7 12:09 BP 136 / 89; Pulse 86; Resp 18 S; Pulse Ox 96% on NC; jd3 13:15 BP 110 / 70 (man/); Pulse 85; Resp 20; Pulse Ox 95% on NC; jl7 14:17 BP 78 / 49; Pulse 81; Resp 19; Pulse Ox 96% on NC; jl7 16:00 BP 113 / 99; Pulse 89; Resp 19; Pulse Ox 92% ; jl7 16:50 BP 93 / 43; Pulse 91; Resp 20; Pulse Ox 94% ; jl7 16:53 Weight 83.91 kg (R); Height 5 ft. 3 in. (160.02 cm) (R); jl7 16:54 BP 85 / 54; Pulse 88; Resp 15; Pulse Ox 95% ; jl7 17:10 BP 94 / 55; Pulse 89; Resp 15; Pulse Ox 93% ; jl7 16:53 Body Mass Index 32.77 (83.91 kg, 160.02 cm) jl7 12:09 high flow nasal canula in use jd3 14:17 high flow NC jl7 ED Course: 10:14 Patient arrived in ED. jd3 10:15 Percy Barrios PA is PHCP. cp 10:15 Jareth Barnett MD is Attending Physician. cp 10:17 Triage completed. jd3 10:18 Arm band placed on. jd3 10:24 Milton Kerns RN is Primary Nurse. jl7 10:55 EKG done, by ED staff, reviewed by Percy ALVARENGA. Maintain EMS IV. Dressing intact. jd3 Site clean \\T\\ dry. Gauge \\T\\ site: 20 G left AC. 11:10 XRAY Chest (1 view) In Process Unspecified. EDMS 11:30 Inserted saline lock: 22 gauge in left hand, using aseptic technique. Blood collected. jl7 11:30 Initial lab(s) drawn, by ny, sent to lab. First set of blood cultures drawn by ny. jl7 12:00 Second set of blood cultures drawn by ny, COVID swab sent to lab. Inserted saline lock: jl7 22 gauge in right forearm, using aseptic technique. Blood collected. 12:10 Patient has correct armband on for positive identification. Placed in gown. Bed in low jd3 position. Call light in reach. Side rails up X2. Adult w/ patient. Client placed on continuous cardiac and pulse oximetry monitoring. NIBP monitoring applied. ekg monitor on. Pulse ox on. NIBP on. 12:10 Zee cath inserted, using sterile technique, 16 Fr., by ny, balloon inflated, to jl7 gravity drainage, urine specimen collected. returned yolanda urine. Patient tolerated well. Silicone Zee catheter used, pt is allergic to latex. 13:28 Head C Spine Cap Wo Con In Process Unspecified. EDMS 14:23 Jc De Guzman MD is Hospitalizing Provider. cp 19:21 Primary Nurse role handed off by Milton Kerns RN eb 19:32 No provider procedures requiring assistance completed. Patient admitted, IV remains in jl7 place. intact, No redness/swelling at site. 20:16 Alba Johnson, STEPAN is Primary Nurse. vc1 Administered Medications: 11:47 CANCELLED (Physician Discretion): NS 0.9% 1000 ml IV at 500 ml/hr Per protocol; 1000 mL cp bolus 13:00 Drug: Cefepime 2 grams Route: IVPB; Rate: 200 ml/hr; Infused Over: 30 mins; Site: right jl7 forearm; 13:30 Follow up: Response: No adverse reaction; IV Status: Completed infusion jl7 14:17 Drug: Zithromax (azithromycin) 500 mg Route: IVPB; Infused Over: 1 hrs; Site: right jl7 forearm; 15:15 Follow up: IV Status: Completed infusion; IV Intake: 250ml jl7 14:18 Drug: NS 0.9% 500 ml Route: IV; Rate: bolus; Site: right forearm; jl7 15:20 Follow up: IV Status: Completed infusion; IV Intake: 500ml jl7 16:52 Not Given (Physician Discretion): Lasix (furosemide) 40 mg IVP once; give over 2 minutesjl7 16:52 Not Given (Physician Discretion): NS 0.9% 500 ml IV at bolus once jl7 Medication: 12:10 VIS not applicable for this client. jd3 Intake: 15:15 IV: 250ml; Total: 250ml. jl7 15:20 IV: 500ml; Total: 750ml. jl7 Outcome: 14:25 Decision to Hospitalize by Provider. cp 19:32 Admitted to ICU accompanied by nurse, accompanied by tech, family with patient, via jl7 stretcher, room 4, with oxygen, with chart, Report called to Ole 19:32 Condition: stable 19:32 Discharge instructions given to patient, family, Instructed on the need for admit, Demonstrated understanding of instructions. 20:18 Patient left the ED. vc1 Signatures: Dispatcher [employer] EDMS Percy Barrios PA PA cp Leal, Jahala, RN RN jl7 Ang Leo RN RN jd3 Botello, Elizabeth eb Calcote, Vanessa, RN RN vc1 Corrections: (The following items were deleted from the chart) 14:27 14:10 NS 0.9% 500 ml IV at bolus in right forearm jl7 jl7 16:53 03:00 Cefepime 2 grams IVPB at 200 ml/hr in right forearm over 30 mins jl7 jl7
--- NOTE | 2021-10-19 14:26 | EDPHYS ---
Physician Documentation [facility] Name: Mary Valverde Age: 61 yrs Sex: Female : 1960 Arrival Date: 10/19/2021 Time: 10:14 Bed 4 Private MD: ED Physician Jareth Barnett HPI: 10/19 10:20 This 61 yrs old Female presents to ER via EMS with complaints of Altered Mental Status. cp 10:20 The patient presents with confusion, decreased mental status. Onset: The cp symptoms/episode began/occurred 4 day(s) ago. Possible causes: history of cirrhosis. Associated signs and symptoms: Pertinent negatives: abdominal pain, chest pain, fever. 10:20 Current symptoms: In the emergency department the patient's symptoms are unchanged from cp the initial presentation, despite home interventions. Patient's baseline: Neuro: alert and fully oriented, Motor: no deficits, Ambulation: unable to walk, uses wheelchair, Speech: normal. 10:20 EMS reports patient with oxygen sats at 77% with RA on arrival. cp Historical: - Allergies: 10:18 Latex, Natural Rubber; jd3 - Home Meds: 10:18 Albuterol Inhl [Active]; Azithromycin Oral [Active]; citalopram 20 mg tab [Active]; jd3 fluconazole 200 mg Oral tab [Active]; metoclopramide HCl 5 mg Oral tab [Active]; morphine 15 mg Oral TR12 [Active]; levothyroxine 50 mcg cap 1 cap once daily [Active]; Omeprazole Oral [Active]; Oxybutynin Chloride Oral [Active]; nitrofurantoin macrocrystal 100 mg Oral cap [Active]; prazosin 1 mg Oral cap [Active]; pregabalin 100 mg Oral cap [Active]; hydrochlorothiazide 25 mg Oral tab 1 tab once daily [Active]; verio FL one touch kit [Active]; tizanidine 4 mg Oral cap [Active]; ursodiol 300 mg Oral cap [Active]; Xifaxan 550 mg Oral tab 1 tab 2 times per day [Active]; - PMHx: 10:18 diabetes mellitus; neuropathy; Non-alcoholic cirrhosis of liver; Hypertensive disorder; jd3 stroke; hiatal hernia; depressive disorder; Anxiety; - PSHx: 10:18 Cholecystectomy; jd3 - Immunization history:: Adult Immunizations unknown. - Social history:: Smoking status: unknown. ROS: 10:25 Constitutional: Negative for body aches, chills, fever, poor PO intake. cp 10:25 Eyes: Negative for injury, pain, redness, and discharge. cp 10:25 Cardiovascular: Negative for chest pain, edema. cp 10:25 Respiratory: Positive for shortness of breath. cp 10:25 Abdomen/GI: Negative for abdominal pain, vomiting, diarrhea. 10:25 Neuro: Positive for altered mental status, Negative for headache. 10:25 Unable to obtain ROS due to altered mental status. Exam: 10:30 Constitutional: The patient appears alert, awake, non-diaphoretic, non-toxic, well cp developed, well nourished, uncomfortable. 10:30 Head/Face: Normocephalic, atraumatic. cp 10:30 Eyes: Periorbital structures: appear normal, Pupils: equal, round, and reactive to light and accomodation, Conjunctiva: normal, no exudate, no injection, Sclera: no appreciated abnormality, Lids and lashes: appear normal, bilaterally. 10:30 ENT: External ear(s): are unremarkable, Ear canal(s): are normal, clear, TM's: dullness, bilaterally, Nose: is normal, Mouth: Lips: moist, Oral mucosa: moist, Posterior pharynx: Airway: no evidence of obstruction, patent. 10:30 Neck: C-spine: vertebral tenderness, is not appreciated, crepitus, is not appreciated, ROM/movement: Meningeal signs: are not present, nuchal rigidity, is not appreciated. 10:30 Chest/axilla: Inspection: normal, Palpation: is normal, no crepitus, no tenderness. 10:30 Cardiovascular: Rate: normal, Rhythm: regular, Edema: is not appreciated, JVD: is not appreciated. 10:30 Respiratory: mild respiratory distress is noted, Respirations: labored breathing, that is mild, shallow respirations, that is mild, Breath sounds: decreased breath sounds, that are moderate, throughout, stridor, is not appreciated, wheezing: is not appreciated. 10:30 Abdomen/GI: Inspection: abdomen appears normal, Palpation: abdomen is soft and non-tender, in all quadrants. 10:30 Back: CVA tenderness, is absent. 10:30 Skin: cellulitis, is not appreciated, no rash present. 10:30 Neuro: Orientation: to person, Mentation: slow to respond, confused, Motor: moves all fours, Sensation: no obvious gross deficits. 10:55 ECG was reviewed by the Attending Physician. cp Vital Signs: 10:17 Pulse 83; Resp 18 S; Temp 98.1(TE); Pulse Ox 98% on Non-rebreather mask; Pain 0/10; jd3 12:02 BP 136 / 89; Pulse 82; Resp 22; Pulse Ox 94% ; jl7 12:09 BP 136 / 89; Pulse 86; Resp 18 S; Pulse Ox 96% on NC; jd3 13:15 BP 110 / 70 (man/); Pulse 85; Resp 20; Pulse Ox 95% on NC; jl7 14:17 BP 78 / 49; Pulse 81; Resp 19; Pulse Ox 96% on NC; jl7 16:00 BP 113 / 99; Pulse 89; Resp 19; Pulse Ox 92% ; jl7 16:50 BP 93 / 43; Pulse 91; Resp 20; Pulse Ox 94% ; jl7 16:53 Weight 83.91 kg (R); Height 5 ft. 3 in. (160.02 cm) (R); jl7 16:54 BP 85 / 54; Pulse 88; Resp 15; Pulse Ox 95% ; jl7 17:10 BP 94 / 55; Pulse 89; Resp 15; Pulse Ox 93% ; jl7 16:53 Body Mass Index 32.77 (83.91 kg, 160.02 cm) jl7 12:09 high flow nasal canula in use jd3 14:17 high flow NC jl7 MDM: 10:17 Patient medically screened. cp 10:30 Differential Diagnosis: CVA, electrolyte abnormality, hypoglycemia, intracranial bleed, cp overdose, pneumonia, seizure, sepsis, volume depletion. 14:01 Data reviewed: vital signs, nurses notes, lab test result(s), EKG, radiologic studies, cp CT scan, plain films. Test interpretation: by ED physician or midlevel provider: ECG, plain radiologic studies. Physician consultation: Jc De Guzman MD was contacted at 14:01, regarding admission, to the telemetry unit. patient's condition. 10/19 10:16 Order name: ABG; Complete Time: 11:47 cp 10/19 10:16 Order name: Basic Metabolic Panel; Complete Time: 12:21 cp 10/19 13:05 Interpretation: Normal except: NA 134; ANION GAP 15.8; GLUC 173; BUN 57; CRE 7.32; GFR cp 6; CA 8.0. 10/19 10:16 Order name: CBC with Diff; Complete Time: 13:04 cp 10/19 11:36 Interpretation: Normal except: WBC 22.1; RBC 5.00; RDW 15.8; AURY% 76.9; LYM% 14.7; NEUT cp A 17.0; MNA 1.6. 10/19 10:16 Order name: LFT's; Complete Time: 12:21 cp 10/19 13:06 Interpretation: AST 54; ALK 192; ALB 2.7; GLOB 5.3; A/G 0.5. cp 10/19 10:16 Order name: Magnesium; Complete Time: 12:21 cp 10/19 10:16 Order name: NT PRO-BNP; Complete Time: 12:21 cp 10/19 10:16 Order name: PT-INR; Complete Time: 12:21 cp 10/19 10:16 Order name: Troponin HS; Complete Time: 12:21 cp 10/19 13:06 Interpretation: Abnormal: Troponin HS 1250.0. cp 10/19 10:17 Order name: Procalcitonin; Complete Time: 13:04 cp 10/19 13:05 Interpretation: Abnormal: Procalcitonin 0.88. cp 10/19 10:17 Order name: Lactate; Complete Time: 11:36 cp 10/19 10:17 Order name: Blood Culture Adult (2) cp 10/19 10:17 Order name: Urine Microscopic Only; Complete Time: 13:50 cp 10/19 13:50 Interpretation: Normal except: UWBC 20-50; UBACT 20-50; SQEPI 20-50. cp 10/19 10:39 Order name: COVID-19 SARS RT PCR (Document "Date of Onset" if Symptomatic); Complete jl7 Time: 12:21 10/19 11:35 Order name: Manual Differential; Complete Time: 13:04 EDMS 10/19 13:05 Interpretation: Normal except: BANDS [F] 3; MONO 11; BASOS 2. cp 10/19 10:16 Order name: XRAY Chest (1 view); Complete Time: 11:47 cp 10/19 11:40 Order name: AMMONIA; Complete Time: 12:21 cp 10/19 12:29 Order name: UDS; Complete Time: 13:50 cp 10/19 13:51 Interpretation: Normal except: OPI POSITIVE. cp 10/19 13:13 Order name: Head C Spine Cap Wo Con; Complete Time: 13:50 EDMS 10/19 13:13 Order name: Urine Dipstick-Ancillary; Complete Time: 13:50 EDMS 10/19 13:51 Interpretation: Normal except: UKET Trace; UPROT 1+; UESTR 1+. cp 10/19 15:43 Order name: Lactate EDMS 10/19 15:43 Order name: T4 Free EDMS 10/19 15:43 Order name: CBC with Automated Diff EDMS 10/19 15:43 Order name: CBC with Automated Diff EDMS 10/19 15:43 Order name: Comprehensive Metabolic Panel EDMS 10/19 15:43 Order name: Comprehensive Metabolic Panel EDMS 10/19 15:46 Order name: Vancomycin Level Trough EDMS 10/19 15:46 Order name: Vancomycin Level Trough EDMS 10/19 18:30 Order name: Urine Dipstick-Ancillary EDMS 10/19 10:16 Order name: EKG; Complete Time: 10:17 cp 10/19 10:16 Order name: Cardiac monitoring; Complete Time: 10:24 cp 10/19 10:16 Order name: EKG - Nurse/Tech; Complete Time: 10:55 cp 10/19 10:16 Order name: IV Saline Lock; Complete Time: 11:48 cp 10/19 10:16 Order name: Labs collected and sent; Complete Time: 11:48 cp 10/19 10:16 Order name: O2 Per Protocol; Complete Time: 10:55 cp 10/19 10:16 Order name: O2 Sat Monitoring; Complete Time: 10:55 cp 10/19 10:17 Order name: Urine Dipstick-Ancillary (obtain specimen); Complete Time: 13:16 cp 10/19 10:17 Order name: Cath; Complete Time: 13:16 cp 10/19 15:43 Order name: CONS Physician Consult EDMS 10/19 15:43 Order name: CONS Physician Consult EDMS 10/19 15:43 Order name: NPO EDMS EC:55 Rate is 77 beats/min. Rhythm is regular. [place] interval is normal. QRS interval is normal. cp QT interval is normal. T waves are Inverted in lead aVR. Interpreted by me. Reviewed by me. Administered Medications: 11:47 CANCELLED (Physician Discretion): NS 0.9% 1000 ml IV at 500 ml/hr Per protocol; 1000 mL cp bolus 13:00 Drug: Cefepime 2 grams Route: IVPB; Rate: 200 ml/hr; Infused Over: 30 mins; Site: right jl7 forearm; 13:30 Follow up: Response: No adverse reaction; IV Status: Completed infusion jl7 14:17 Drug: Zithromax (azithromycin) 500 mg Route: IVPB; Infused Over: 1 hrs; Site: right jl7 forearm; 15:15 Follow up: IV Status: Completed infusion; IV Intake: 250ml jl7 14:18 Drug: NS 0.9% 500 ml Route: IV; Rate: bolus; Site: right forearm; jl7 15:20 Follow up: IV Status: Completed infusion; IV Intake: 500ml jl7 16:52 Not Given (Physician Discretion): Lasix (furosemide) 40 mg IVP once; give over 2 minutesjl7 16:52 Not Given (Physician Discretion): NS 0.9% 500 ml IV at bolus once jl7 Disposition Summary: 10/19/21 14:25 Hospitalization Ordered Hospitalization Status: Inpatient Admission cp Provider: Jc De Guzman cp Location: Intensive Care Unit cp Condition: Serious cp Problem: new cp Symptoms: have improved cp Bed/Room Type: Standard cp Room Assignment: 4-(10/19/21 17:17) eb Diagnosis - Altered mental status, unspecified cp - Other pneumonia, unspecified organism cp - Acute kidney failure, unspecified cp - Severe sepsis with septic shock cp Forms: - Medication Reconciliation Form cp - SBAR form cp Addendum: 11/01/2021 07:08 Co-signature as Attending Physician, Jareth Barnett MD I agree with the assessment and k dr plan of care. Signatures: Dispatcher [employer] EDJareth Fernandes MD MD kdr Page, Corey, PA PA cp Leal, Jahala, RN RN jl7 Ang Leo RN RN jLisa Carlos Corrections: (The following items were deleted from the chart) 10/19 11:47 11:40 NS 0.9% 1000 ml IV at 500 ml/hr Per protocol; 1000 mL bolus ordered. cp cp 13:13 11:42 Head Brain Wo Cont+CT.RAD.BRZ ordered. EDMS EDMS 13:14 12:34 Chest Abdomen Pelvis Wo Con+CT.RAD.BRZ ordered. EDMS EDMS 17:17 14:25 cp eb 10/20 19:43 19:41 This 61 yrs old Female presents to ER via EMS with complaints of Altered Mental cp Status. cp 19:47 10/19 10:20 EMS reports patient with oxygen sats at 76% with RA on arrival. cp cp
[2021-10-19] MEDS ORDERED: ONDANSETRON 4 MG/2 ML VIAL IV PRN (15:35)
[2021-10-19] MEDS ORDERED: D50W 25 GM/50 ML SYRINGE IV PRN (15:35)
[2021-10-19] MEDS ORDERED: ACETAMINOPHEN 650MG/RECT SUPP PR PRN (15:35)
[2021-10-19] MEDS ORDERED: GLUCAGON 1 MG/VIAL IM PRN (15:35)
[2021-10-19] MEDS ORDERED: ALBUTEROL 2.5 MG/3 ML NEB SOL NEB PRN (15:42)
[2021-10-19] MEDS ORDERED: IPRATROPIUM BROM 0.5MG/2.5ML NEB PRN (15:42)
[2021-10-19] MEDS ORDERED: D10W 125 ML IV PRN (16:28)
[2021-10-19] MEDS: INSULIN -REGULAR HUMAN 50 UNIT/0.5 ML ML SQ SCH ×2 (16:30→22:04)
[2021-10-19] MEDS ORDERED: VANCOMYCIN 2 GM in NA CHLORIDE 0.9% 500 ML IVPB ONE (17:00)
[2021-10-19] MEDS: METHYLPREDNISOLONE 125 MG INJ IV SCH ×2 (18:00→22:03)
[2021-10-19 18:29] LABS: Urine Blood Negative (Negative); Urine Glucose Negative (Negative); Urine Protein 2+ (Negative); Urine Specific Gravity 1.025 (1.005-1.030)
[2021-10-19] MEDS: NA CHLORIDE 0.9% 1,000 ML IV SCH (21:00)
[2021-10-19] MEDS: NOREPINEPHRINE 4 MG in D5W 250 ML IV SCH (21:24)
[2021-10-19] MEDS: HEPARIN 5000 UNIT/ML 1 ML VIAL SQ SCH (22:05)
[2021-10-20 00:15] VITALS: BMI 30.4
[2021-10-20] MEDS: NOREPINEPHRINE 4 MG in D5W 250 ML IV SCH ×3 (00:58→06:17)
[2021-10-20] MEDS ORDERED: NOREPINEPHRINE 4 MG/4 ML VIAL ONE (01:11)
[2021-10-20] MEDS: NA CHLORIDE 0.9% 1,000 ML IV SCH ×3 (02:00→10:30)
[2021-10-20] MEDS ORDERED: D5W 250 ML IV ONE ×2 (03:49→06:14)
[2021-10-20 05:19] LABS: Absolute Lymphocytes (CBC) 0.6 K/uL (0.7-4.9); Hematocrit 41.4 % (36.0-45.0); Lymphocytes % 2.3 % (15.3-44.8); MPV 11.2 fL (7.6-11.3); RBC Red Blood Cell Count 4.66 M/uL (3.86-4.86)
[2021-10-20 05:46] LABS: Albumin 2.3 g/dL (3.4-5.0); Bilirubin Total 0.4 mg/dL (0.2-1.0); Magnesium 3.2 mg/dL (1.8-2.4); Phosphorus 7.3 mg/dL (2.5-4.9); Potassium 5.2 mmol/L (3.5-5.1); Protein, Total 7.2 g/dL (6.4-8.2); Uric Acid 12.2 mg/dL (2.6-6.0)
[2021-10-20] MEDS: METHYLPREDNISOLONE 125 MG INJ IV SCH (05:46)
[2021-10-20] MEDS ORDERED: LIDOCAINE 1% 20 ML MDV ONE (07:32)
[2021-10-20] MEDS: INSULIN -REGULAR HUMAN 50 UNIT/0.5 ML ML SQ SCH (07:48)
[2021-10-20] MEDS ORDERED: IPRATROPIUM BROM 0.5MG/2.5ML NEB PRN (08:00)
[2021-10-20] MEDS ORDERED: ALBUTEROL 2.5 MG/3 ML NEB SOL NEB PRN (08:00)
[2021-10-20] MEDS ORDERED: NOREPINEPHRINE 8 MG in D5W 250 ML IV SCH (08:00)
--- NOTE | 2021-10-20 08:03 | P.CNS ---
Date of Consult: 10/20/21 Reason for Consult: PAZ/ CKD Requesting Physician: Jc De Guzman Chief Complaint: Altered mental status History of Present Illness: 62-year-old female with history of nonalcoholic liver cirrhosis, diabetes mellitus, hypertension, status post right BKA, recently diagnosed presumed En thyroiditis, recurrent UTIs, recent hospitalization for altered mental status with improvement in symptoms after started on IV steroids; develop change in mental status with increasing drowsiness and intermittent checks since the last 3 days. Spouse states patient was unable to hold a cup to her mouth. He has been giving her medication since then. Her drowsiness continue to worsen. She has developed loss of appetite and inability to take p.o. since the last 2 days. On arrival to EMS she was noted with O2 sats in the 75% on room air and was started on nonrebreather mask. On arrival in the ED she was placed on high flow nasal cannula O2 requiring up to 40 L now. She is still significantly drowsy. Her blood pressure was systolic was 80 but improved with 1 L bolus to 120s but now systolic blood pressure has dropped to 60/37. Patient is very drowsy unable to stay awake to answer questions. She is able to answer few yes or no but not consistent. Daughter at bedside helping with history. Denies any new medication changes. Denies any fever. He had a 7.3, up from prior baseline of 0.83 weeks ago. VBG shows pH of 7.28 w ith PCO2 of 54. WBC is elevated at 22K with 3% bands. Urinalysis shows UTI. CT of the abdomen and pelvics is normal Diagnosis: Altered mental status, unspecified;Other pneumonia, unspecified organism;Acute kidney failure, unspecified;Severe sepsis with septic shock Presentation: 10/19 10:14 Chief complaint: EMS states: "family reported that the pt has been AMS since Wednesday. jd3 today she was very lethargic. today she was hypoxic at 77 % on room air. we got her up to 98 % on a nonrebreather mask. family reported a history of non alcoholic cirrhosis. since we got some oxygen on her she became more alert, but remained AMS. A\\T\\O X 1 to her name.". Coronavirus screen: At this time, the client does not indicate any symptoms associated with coronavirus-19. Ebola Screen: No symptoms or risks identif ied at this time. Initial Sepsis Screen: Does the patient meet any 2 criteria? No. Patient's initial sepsis screen is negative. Does the patient have a suspected source of infection? No. Patient's initial sepsis screen is negative. Risk Assessment: Do you want to hurt yourself or someone else? Patient reports no desire to harm self or others. Onset of symptoms was October 15, 2021. Care prior to arrival: IV initiated. 20 GA, in the left antecubital area, Glucose check: 285 Oxygen administered. via a non-rebreather mask. 10:14 Method Of Arrival: EMS: [facility] Case reviewed with the at the bedside. Allergies latex Allergy (Verified 09/11/21 02:23) Rash Home medications list reviewed: Yes Home Medications: Ascorbic Acid [Vitamin C*] 500 mg PO DAILY 08/23/17 Cholecalciferol (Vitamin D3) [Vitamin D 1000 Iu Tab*] 1,000 unit PO DAILY 08/23/17 Citalopram Hydrobromide [Citalopram HBr] 20 mg PO BEDTIME 08/23/17 Insulin Glargine,Hum.rec.anlog [Lantus] 0 unit SQ DAILY 08/23/17 L.acidoph,Paracasei, B.lactis [Probiotic] 3 each PO DAILY 08/23/17 Levothyroxine [Synthroid*] 88 mcg PO [id number] 08/23/17 Montelukast [Singulair*] 10 mg PO DAILY 08/23/17 Multivitamin [Multivitamins] 1 each PO DAILY 08/23/17 Omeprazole 60 mg PO DAILY 08/23/17 Oxybutynin Chloride [Ditropan*] 5 mg PO BID 08/23/17 Pioglitazone HCl 15 mg PO DAILY 08/23/17 Rifaximin [Xifaxan] 550 mg PO BID 08/23/17 Vitamin B Complex [B Complex] 1 each PO DAILY 08/23/17 hydroCHLOROthiazide [Hydrochlorothiazide*] 25 mg PO DAILY 08/23/17 Lactulose 15 gm PO BID 09/11/21 Lisinopril [Zestril] 2.5 mg PO DAILY 09/11/21 Morphine *Extended Release* [MS Contin*] 15 mg PO BID 09/11/21 Prazosin HCl 1 mg PO BEDTIME 09/11/21 Pregabalin 100 mg PO TID 09/11/21 buPROPion HCL [Bupropion HCl Sr] 100 mg PO DAILY 09/11/21 ursodioL [Ursodiol] 600 mg PO BID 09/11/21 Amlodipine [Norvasc*] 10 mg PO DAILY #30 tab 09/15/21 Aspirin [Aspirin EC 81 MG] 81 mg PO DAILY #30 tablet. 09/15/21 Bupropion *Xl* [Wellbutrin XL*] 150 mg PO DAILY #30 tab 09/15/21 predniSONE [Deltasone*] 10 mg PO DAILY #30 tab 09/15/21 - Past Medical/Surgical History Diabetic: Yes -: Type 2 [id number] -: Nonalcoholic cirrhosis -: Hypothyroidism -: COPD -: Hypertension -: CKD -: Cholecystectomy -: Right BKA Psychosocial/ Personal History: Patient lives at home with her . - Family History Mother Medical History: Cancer - Social History Smoking Status: Unknown if ever smoked Alcohol use: No CD- Drugs: Yes Caffeine use: No Place of Residence: Home Review of Systems 10-point ROS is otherwise unremarkable General: Malaise Neurological: Confusion Physical Examination Temp Pulse Resp BP Pulse Ox 97.6 F 90 15 121/75 99 10/20/21 04:00 10/20/21 06:30 10/20/21 06:30 10/20/21 06:30 10/20/21 06:30 General: Moderate distress, Delirious HEENT: Atraumatic Neck: Supple Respiratory: Diminished Cardiovascular: No edema, Regular rate/rhythm Gastrointestinal: Soft and benign, Non-distended Musculoskeletal: No clubbing, No contractures, Other (Right BKA) Integumentary: No rashes Laboratory Data (last 24 hrs) 10/19/21 11:44: PT 10.8, INR 0.98 10/19/21 11:44: Sodium 134 L, Potassium 4.8, BUN 57 H, Creatinine 7.32 H*, Glucose 173 H, Magnesium 3.1 H D, Total Bilirubin 0.4, AST 54 H, ALT 14, Alkaline Phosphatase 192 H 10/19/21 11:07: WBC 22.1 H*, Hgb 14.3, Hct 43.8, Plt Count 263 Imagings Data: EXAM DESCRIPTION: RAD - Chest Single View - 10/19/2021 11:08 am CLINICAL HISTORY: SOB Chest pain. COMPARISON: Chest Single View dated 10/03/2021; Chest Single View dated 09/10/2021; Chest Pa And Lat (2 Views) dated 08/17/2017; CHEST PA AND LAT 2 VIEW dated 02/23/2008 FINDINGS: Portable technique limits examination quality. Moderate bilateral pulmonary opacities are noted likely representing pulmonary edema. The heart is moderately enlarged. No displaced fractures. IMPRESSION: Mild to moderate CHF. EXAM DESCRIPTION: CT - Head C Spine Cap Wo Con - 10/19/2021 1:26 pm CLINICAL HISTORY: Trauma, head and neck injury. Chest, abdomen and pelvis pain. Mental status change, unknown caus COMPARISON: Head Brain Wo Cont dated 10/03/2021 TECHNIQUE: CT head without contrast. CT cervical spine without contrast with coronal and sagittal reformatted images. CT chest, abdomen and pelvis without contrast with coronal and sagittal reformatted images of the spine. All CT scans are performed using dose optimization technique as appropriate and may include automated exposure control or mA/KV adjustment according to patient size. FINDINGS: CT HEAD WITHOUT CONTRAST: No intracranial hemorrhage, hydrocephalus or extra-axial fluid collection. 2 cm area of gliosis in the right cerebellum is unchanged and likely related to remote infarct. No areas of brain edema or midline shift. The paranasal sinuses and mastoids are clear. The calvarium is intact. CT CERVICAL SPINE WITHOUT CONTRAST: No fracture or subluxation. Moderate lower cervical degenerative changes. The prevertebral soft tissues are normal in thickness. CT CHEST, ABDOMEN, PELVIS WITHOUT CONTRAST: NOTE: Lack of contrast is a significant limitation in the assessment of trauma related findings. Specifically, solid organ, vascular and bowel evaluation is significantly limited. Prominent emphysematous changes are seen with opacities in both posterior lung bases likely representing atelectasis.No pneumothorax or pericardial/pleural fluid. No evidence of intra-abdominal visceral injury, free fluid or free air is seen within the above detailed limitations. Cholecystectomy clips. No concerning pelvic findings. No fractures. Moderate lumbosacral degenerative changes are seen. IMPRESSION: No acute process is identified. Conclusions/Impression: PAZ in the setting of hypotension may be hypovolemia complicated by ATN CKD II with proteinuria -No NSAIDs -Urine chemistries pending -Continue IVF -Vasopressor support to maintain perfusion Hyponatremia -Continue IVF with NS Hyperkalemia -NPO AG Acidosis due to PAZ -Continue IVF and BP support Hypocalcemia HyperPO4 -NPO Septic Shock/ Sepsis Hypotension -Continue IVF -Pressor support -Continue abx; monitor vanc level -Follow up cultures Aortic Valve Stenosis Elevated BNP may be due to AVS Elevated troponin -Cardiology to evaluate DM II with hyperglycemia & CKD -RISS -Start Lantus BID Moderate malnutrition -IV Albumin prn TOUSSAINT -Monitor LFT Toxic metabolic encephalopathy -Supportive care as ordered Acute respiratory failure with hypoxia COPD -Bipap as ordered -Continue Oxygen supplementation Thank you kindly for the consultation. Greater than 30min patient care. Critical Care: Yes
[2021-10-20] MEDS: HEPARIN 5000 UNIT/ML 1 ML VIAL SQ SCH (08:32)
[2021-10-20] MEDS ORDERED: CEFEPIME 2 GM in NA CHLORIDE 0.9% 100 ML IV SCH (09:00)
[2021-10-20] MEDS ORDERED: INSULIN GLARGINE 100 UNIT/ML SQ SCH (09:15)
[2021-10-20 09:45] LABS: Urine Appearance Clear (Clear); Urine Bilirubin Negative (Negative); Urine Blood 1+ (Negative); Urine Color Yellow (Yellow); Urine Glucose Negative (Negative); Urine Protein Trace (Negative); Urine Specific Gravity >=1.030 (1.005-1.030); Urine Urobilinogen 0.2 mg/dL (0.2-1.0)
[2021-10-20] MEDS ORDERED: NA CHLORIDE 0.9% 500 ML ONE (09:50)
[2021-10-20 10:03] LABS: Urine Microscopic Reflex ORDER UMIC
[2021-10-20 10:08] LABS: UR PROTEIN 92.4 mg/dL (<11.9); Urine Protein/Creatinine Ratio 0.39 ratio (<0.15)
[2021-10-20] MEDS: HYDROCORTISONE SUC 100 MG INJ IV ONE ×2 (10:16→11:00)
[2021-10-20 10:18] LABS: Urine Bacteria <20 /HPF (<20); Urine Mucus 1+ /HPF (NONE SEEN)
[2021-10-20] MEDS: NA CHLORIDE 0.9% 1,000 ML IV ONE ×2 (10:46→11:00)
[2021-10-20] MEDS: LORazepam 2 MG/ML VIAL IV PRN ×2 (10:47→11:02)
[2021-10-20] MEDS ORDERED: LORazepam 2 MG/ML VIAL ONE (10:52)
[2021-10-20] MEDS ORDERED: NA CHLORIDE 0.9% 500 ML IV ONE (11:00)
[2021-10-20] MEDS ORDERED: ALBUMIN HUMAN 25% 100 ML IV ONE (11:00)
--- NOTE | 2021-10-20 11:10 | RAD REPORT ---
[facility]57 [facility] CLINICAL HISTORY: Device placement/central venous catheter placement IMPRESSION: Central venous catheter has been placed into the distal superior vena cava. No pneumothorax
[2021-10-20] MEDS ORDERED: RSI MEDICATION KIT IV ONE (12:36)
[2021-10-20] MEDS ORDERED: EPINEPHrine 1 MG/10 ML SYR IV ONE (12:38)
[2021-10-20] MEDS ORDERED: Caclcium Chloride 10% INJ SYR IV ONE (12:38)
[2021-10-20 14:40] VITALS: TEMP 96.6
[2021-10-20 14:41] VITALS: BP 94/65
[2021-10-20 17:00] VITALS: O2SAT 99
--- NOTE | 2021-10-20 17:26 | P.OP ---
Preoperative diagnosis: Need for Central Venous Access Postoperative diagnosis: Need for Central Venous Access Primary procedure: Placement of LEFT Subclavian Central Venous Catheter Secondary procedure: Micro-introducer used Anesthesia: Lidocaine 1% used Estimated blood loss: <5cc Specimen: none Findings: non-pulsatile blood returned Complications: None Implants: Triple lumen central venous catheter Transferred to: ICU Condition: Serious
--- NOTE | 2021-10-20 20:01 | P.DS ---
Discharge Date: 10/20/21 Disposition: Reason for Admission: Altered mental status Brief History of Present Illness: 62-year-old female with history of nonalcoholic liver cirrhosis, diabetes mellitus, hypertension, status post right BKA, recently diagnosed presumed En thyroiditis, recurrent UTIs, recent hospitalization for altered mental status with improvement in symptoms after started on IV steroids; develop change in mental status with increasing drowsiness and intermittent checks since the last 3 days. Spouse states patient was unable to hold a cup to her mouth. He has been giving her medication since then. Her drowsiness continue to worsen. She has developed loss of appetite and inability to take p.o. since the last 2 days. On arrival to EMS she was noted with O2 sats in the 75% on room air and was started on nonrebreather mask. On arrival in the ED she was placed on high flow nasal cannula O2 requiring up to 40 L now. She is still significantly drowsy. Her blood pressure was systolic was 80 but improved with 1 L bolus to 120s but now systolic blood pressure has dropped to 60/37. Patient is very drowsy unable to stay awake to answer questions. She is able to answer few yes or no but not consistent. Daughter at bedside helping with history. Denies any new medication changes. Denies any fever. He had a 7.3, up from prior baseline of 0.83 weeks ago. VBG shows pH of 7.28 with PCO2 of 54. WBC is elevated at 22K with 3% bands. Urinalysis shows UTI. CT of the abdomen and pelvics is normal Hospital Course: Patient is doing very poorly. Patient was severely hypotensive and on Levophed. Patient was placed on BiPAP. Patient's renal function was very poor and urine output was also very poor. Nurses were obtaining ABG, and patient suddenly lost pulse. Patient's heart rate dropped from the 90s to the 60s. Patient had pulseless electrical activity. PRATIK MORGAN was called. I responded and try to resuscitate the patient over the next 15 minutes but was unsuccessful. Patient was in PEA and asystole and we were not able to get the patient out of an asystolic rhythm. Family was at bedside and they stated they did not want anything further done. Code was called at 1039. Home Medications: Citalopram Hydrobromide [Citalopram HBr] 20 mg PO BEDTIME 08/23/17 Insulin Glargine,Hum.rec.anlog [Lantus] See Protocol SQ DAILY 08/23/17 L.acidoph,Paracasei, B.lactis [Probiotic] 3 each PO DAILY 08/23/17 Montelukast [Singulair*] 10 mg PO DAILY 08/23/17 Multivitamin [Multivitamins] 1 each PO DAILY 08/23/17 Oxybutynin Chloride [Ditropan*] 5 mg PO TID 08/23/17 Pioglitazone HCl 15 mg PO DAILY 08/23/17 Rifaximin [Xifaxan] 550 mg PO BID 08/23/17 Vitamin B Complex [B Complex] 1 each PO DAILY 08/23/17 hydroCHLOROthiazide [Hydrochlorothiazide*] 25 mg PO DAILY 08/23/17 Lactulose 15 gm PO TID 09/11/21 Lisinopril [Zestril] 2.5 mg PO DAILY 09/11/21 Morphine *Extended Release* [MS Contin*] 15 mg PO BID 09/11/21 Prazosin HCl 1 mg PO PRN 09/11/21 Pregabalin 100 mg PO TID 09/11/21 buPROPion HCL [Bupropion HCl Sr] 100 mg PO DAILY 09/11/21 ursodioL [Ursodiol] 600 mg PO TID 09/11/21 Baclofen 10 mg PO PRN PRN 10/20/21 Metoclopramide [Reglan*] 5 mg PO DAILY 10/20/21 Nitrofurantoin Macrocrystal [Nitrofurantoin] 100 mg PO DAILY 10/20/21 Tizanidine HCl 5 mg PO PRN PRN 10/20/21 Physician Discharge Instructions: Patient and body was released to the home. Followup: Gavin Kelly FNP [Primary Care Provider] - Time spent managing pt's care (in minutes): 60
[2021-10-20] MEDS ORDERED: HYDROCORTISONE SUC 100 MG INJ IV SCH (21:00)
--- NOTE | 2021-10-20 21:46 | CON ---
Date of Consultation: 10/20/2021 Reason For Consultation: Placement of a central venous access device. Brief History Of Present Illness: The patient is a 61-year-old female. Information is obtained prim arily from chart and from family members as the patient is currently disoriented and not responsive i n any meaningful way, on BiPAP during my examination. She has a history of nonalcoholic liver cirrho sis, diabetes, hypertension, right BKA, En thyroiditis, recurrent UTIs, multiple hospitalizati ons for altered mental status, cardiovascular compromise with aortic stenosis. She had increased jaleel wsiness and somnolence and she had been having altered mental status. As such, she was brought to [facility] emergency room with the above-stated complaints. She was found to have significant desaturation of her oxygen status as well as requiring pressor support. This was initiated through peripheral IVs a nd I was consulted for placement of central venous access device. Past medical history and informati on obtained primarily from chart and from family, as described as the patient is not responsive in an y meaningful way. Past Medical History: Significant for nonalcoholic liver cirrhosis as described, diabetes, hypertens ion, En thyroiditis, aortic stenosis, COPD, hypertension, and CKD. Past Surgical History: Cholecystectomy and a right [id number] amputation. Allergies: LATEX. Home Medications: Include vitamin C, vitamin D, citalopram, insulin Lantus, lactobacillus probiotic, Synthroid, Singulair, multivitamin, omeprazole, Ditropan, pioglitazone, Zanaflex, vitamin B, hydroch lorothiazide, lactulose, lisinopril, morphine, prazosin, pregabalin, bupropion, Ursodiol, amlodipine, aspirin, bupropion/Wellbutrin, and prednisone. Family History: Significant for mother, who had cancer. Social History: She lives at home with her . She was a current everyday smoker. Denies alco hol or recreational drug use. Review of Systems: Unable to obtain due to mental status abnormalities as described above. Physical Examination: Vital Signs: At time of my examination, temperature is 96.6, pulse rate is 104, blood pressure is 12 3/55, oxygen saturation was 92% on BiPAP. Laboratory Data: She had a laboratory exam, which revealed a white blood cell count of 25.8, hemoglo bin 13.1, hematocrit 41.4, platelet count was 334, neutrophils are 96%. Her coags showed a PT of 10. 8, INR 0.98. Blood gas showed a pH of 7.28, pCO2 54, pO2 54, bicarb was 24.7, base excess -1.1, oxyh emoglobin was 81.7, oxygen saturation was 84% as measured, methemoglobin was 1.2, inspired O2 36%. C hemistry shows sodium 132, potassium 5.2, chloride 101, carbon dioxide 19, BUN 69, creatinine 6.9, gl ucose is 400. Her lactic acid was 1.5 on admission. Uric acid 12.2, phosphorus 7.3, magnesium 3.2, total bilirubin 0.4, AST 110, ALT 14, alkaline phosphatase 177. ProBNP was 17,979. Cortisol level i s 36.8. Opiates were positive. The rest of her screen was negative. Serology showed negative COVID . She had also imaging performed, which included a CT head, C-spine, chest, abdomen, and pelvis. CT head showed no intracranial hemorrhage, hydrocephalus, or extra-axial fluid collection, 2 cm area of gliosis in the right cerebellum is unchanged, likely related to remote infarct. No areas of brain e hernando or midline shift. Paranasal sinuses and mastoids are clear. Calvarium is intact. CT C-spine s howed no fracture or subluxation. Moderate lower cervical degenerative changes. Prevertebral soft t issues are of normal thickness. CT chest, abdomen, and pelvis showed prominent emphysematous changes seen with opacities in both posterior lung bases, likely representing atelectasis. No pneumothorax or pericardial pleural fluid. No evidence of intraabdominal visceral injury, free fluid, free air se en within the above detailed limitations. Cholecystectomy clips are noted. No concerning pelvic fin dings. No fractures. Moderate lumbosacral degenerative changes seen. No acute process. Assessment And Plan: This is a 61-year-old female who comes in with significant cardiovascular compr omise, possible septic shock, cardiovascular shock requiring pressor support and in need of central v enous IV access. As such, I have explained the risks, benefits, and alternatives of placement of a c entral venous catheter including, but not limited to bleeding, infection, damage to surrounding tissu es, pneumothorax or lung collapse, and need for ongoing procedures. The patient's family agrees to manuela fay as indicated. The patient's family was her daughter at the bedside. We have agreed to procee d as indicated on this semiemergent consultation. Thank you for this interesting consult. DELVIS Voice ID: [id number] Report ID: [id number]
--- NOTE | 2021-10-20 22:26 | OP ---
Date of Procedure: 10/20/2021 Surgeon: Jose Cruz MD, Preoperative Diagnosis: Need for central venous access. Postoperative Diagnosis: Need for central venous access. Procedure: Placement of left subclavian central venous catheter. Secondary procedure was microintro ducer set use. Anesthesia: Lidocaine 1% utilized. Estimated Blood Loss: 5 cc. Specimen: None. Findings: Dark nonpulsatile blood was returned. Complications: None. Implant: Triple-lumen central venous catheter was placed. Condition: The patient remained in the ICU in serious/critical condition. Procedure In Detail: After informed consent was obtained, the patient was prepped and draped in the usual sterile fashion. After adequate anesthesia was achieved, the patient was positioned in Trendel enburg position. I then proceeded to palpate, using anatomic landmarks, for the deltopectoral groove . Using the microintroducer needle, I anesthetized the skin and then cannulated the left subclavian vein on the first attempt without incident or complication. Dark red nonpulsatile blood was returned . Microwire was advanced at this point. The needle was then removed. A small ree incision was mad e at the insertion site. The microintroducer sheath was placed. At this point, using Seldinger tech nique, I removed the microwire and placed the standard wire in through the introducer sheath. At thi s point, the introducer sheath was removed. Sequential dilatation was performed and the catheter was placed without incident or complication. Dark red nonpulsatile blood was returned throughout the pr ocedure. Wire out was called 2 times ensuring the wire was removed in its entirety. I then flushed all of these ports with saline until completely clear and secured them with caps and secured them to the skin using the attached 2-0 nylon suture and a sterile dressing with Biopatch was placed over the top. The patient was then taken out of Trendelenburg position. The patient tolerated the procedure well without any complication and remained in the ICU in serious/critical condition throughout the p rocedure. All counts were correct at the end of the case. TK/MODL Voice ID: [id number] Report ID: [id number]
--- NOTE | 2021-10-21 12:21 | EKG ---
Test Date: 2021-10-19 Test Time: 10:50:01 Special Education Para Professional: RAMÍREZ MEASUREMENT RESULTS: Intervals: Rate: 77 GA: 164 QRSD: 68 QT: 396 QTc: 448 [place]: P: 58 GA: 164 QRS: 5 T: 38 INTERPRETIVE STATEMENTS: Normal sinus rhythm Nonspecific ST abnormality Abnormal ECG Compared to ECG 10/03/2021 15:15:06 ST (T wave) deviation now present Atrial abnormality no longer present T-wave abnormality no longer present Electronically Signed On 10-21-21 12:17:03 CDT by Vazquez Ford
[2021-10-21] MEDS ORDERED: VANCOMYCIN 1.5 GM in NA CHLORIDE 0.9% 500 ML IVPB SCH (17:00)
== END 2021-10-20 12:39 | disposition expired | DRG 871 ==
LOC: ER 10:10 → ERHOLD 15:38 → 3RD-ICU 19:25
PROVIDERS: ADMIT Internal Medicine; ATTEND Internal Medicine
PROC: 5A09357 Assistance with Respiratory Ventilation, Less than 24 Consecutive Hours, Continuous Positive Airway Pressure (ICD-10-PCS; 2021-10-19)
PROC: 05H633Z Insertion of Infusion Device into Left Subclavian Vein, Percutaneous Approach (ICD-10-PCS; principal; 2021-10-20)
PROC: 3E033XZ Introduction of Vasopressor into Peripheral Vein, Percutaneous Approach (ICD-10-PCS; 2021-10-20)
PROC: 5A12012 Performance of Cardiac Output, Single, Manual (ICD-10-PCS; 2021-10-20)
PROC: 0BH17EZ Insertion of Endotracheal Airway into Trachea, Via Natural or Artificial Opening (ICD-10-PCS; 2021-10-20)
DX: A41.9 Sepsis, unspecified organism (principal); R65.21 Severe sepsis with septic shock; G93.41 Metabolic encephalopathy; N17.0 Acute kidney failure with tubular necrosis; J96.01 Acute respiratory failure with hypoxia; J18.9 Pneumonia, unspecified organism; N39.0 Urinary tract infection, site not specified; E87.1 Hypo-osmolality and hyponatremia; E87.2 Acidosis; R77.8 Other specified abnormalities of plasma proteins; E87.70 Fluid overload, unspecified; I46.9 Cardiac arrest, cause unspecified; I35.0 Nonrheumatic aortic (valve) stenosis; J44.9 Chronic obstructive pulmonary disease, unspecified; E06.3 Autoimmune thyroiditis; I12.9 Hypertensive chronic kidney disease with stage 1 through stage 4 chronic kidney disease, or unspecified chronic kidney disease; E11.22 Type 2 diabetes mellitus with diabetic chronic kidney disease; E11.65 Type 2 diabetes mellitus with hyperglycemia; N18.2 Chronic kidney disease, stage 2 (mild); E87.5 Hyperkalemia; E83.51 Hypocalcemia; K75.81 Nonalcoholic steatohepatitis (NASH); Z89.511 Acquired absence of right leg below knee; Z20.822 Contact with and (suspected) exposure to COVID-19
CPT/HCPCS: 36415; 51702; 70450; 71045; 71250; 72125; 80048; 80053; 80076; 80202; 80307; 81003; 81015; 82140; 82533; 82570; 82805; 82947; 83605; 83735; 83880; 84100; 84132; 84145; 84156; 84300; 84439; 84484; 84550; 85025; 85610; 87040; 87086; 87088; 93005; 94002; 94003; 94640; 94660; 96365; 96367; 99285; J0171; J0456; J0692; J1644; J1815; J1940; J2704; J2930; J3370; J7030; J7040; J7050; J7060; P9047; U0003